=== PATIENT | male | born 1975 | race Hispanic/Latino ===

== ENCOUNTER 2022-07-15 23:28 | Inpatient (IN) | payer MEDICAID, SELFPAY ==
--- NOTE | ~2022-07-15 | XR_ITS ---
Portable chest x-ray Comparison: None Clinical History: Line placement Findings: Right IJ line is in satisfactory position. Focal hazy opacity noted at the right lung base . Questionable 6 mm nodular opacity left lung base. No pneumothorax. Cardiomediastinal silhouette is stable. Bones and soft tissues are unremarkable. Impression: Right IJ line in satisfactory position. No pneumothorax. Focal hazy opacity right lung base, nonspecific. Possible 6 mm left basilar pulmonary nodule. Consider CT to further evaluate. Reviewed, dictated and finalized at [facility]. ER ASSISTANT Impression: Right IJ line in satisfactory position. No pneumothorax. Focal hazy opacity right lung base, nonspecific. Possible 6 mm left basilar pulmonary nodule. Consider CT to further evaluate.
--- NOTE | ~2022-07-15 | CT_ITS ---
EXAMINATION: CT abdomen pelvis wo con DATE: 07/17/2022 08:58 INDICATION: Scrotal abscess. TECHNIQUE: Computed tomography (CT) of the abdomen and pelvis was performed without intravenous contr ast. Automated exposure control and iterative reconstruction technique were employed. The dose-length product was 233.21 mGy-cm. COMPARISON: CT abdomen and pelvis 07/16/2022 FINDINGS: The visualized portions of the lung bases demonstrate mild atelectasis. There are trace ple ural effusions. The heart size is normal. No pericardial effusion. There is a catheter tip in proxima l right atrium. The liver, gallbladder, spleen, pancreas, and adrenal glands are normal. There is mil d bilateral hydronephrosis. The bladder is decompressed by a Whitney catheter. There are foci of gas in the penis, consistent with recent intervention. In the ventral aspect of the proximal penis, there i s a 7.4 x 2.2 x 2.5 cm hyperdense mass measuring up to 154 HU. Scrotal edema is noted. There are no p athologically enlarged lymph nodes. There is no free intraperitoneal fluid. There is mild thoracolumb ar spondylosis. IMPRESSION: 1. 7.4 x 2.2 x 2.5 cm hyperdense mass in the ventral proximal penis, consistent with retained contras t within the abscess that previously measured 9.0 x 2.2 x 2.6 cm. Note that the abscess component pre viously seen in the prostate is not visualized without intravenous contrast and does not contain parviz ined contrast from the prior CT. 2. Mild bilateral hydronephrosis. Reviewed, dictated and finalized at location A. US AIDE IMPRESSION: 1. 7.4 x 2.2 x 2.5 cm hyperdense mass in the ventral proximal penis, consistent with retained contrast within the abscess that previously measured 9.0 x 2.2 x 2.6 cm. Note that the abscess component previously seen in the prostate is not visualized without intravenous contrast and does not contain retained contrast from the prior CT. 2. Mild bilateral hydronephrosis.
--- NOTE | ~2022-07-15 | US_ITS ---
EXAMINATION: US guide abscess drainage DATE: 07/16/2022 16:07 INDICATION: Penile and scrotal abscess. TECHNIQUE: The procedure including the risks, benefits, and alternatives was discussed with the patie nt using an hourly sign language interpreter. Risks discussed included bleeding and infection. The patient understood the risks and agreed to proceed. The skin overlying the base of the penis was prepped and draped in usual sterile fashion. Anesthetic was administered with 1% lidocaine subcutaneously. An 18-gauge spinal n eedle was inserted into the abscess under ultrasound guidance. The entry site was cleaned and dressed . There were no immediate complications. FINDINGS: Ultrasound images demonstrate the needle in abscess. IMPRESSION: 1. Ultrasound-guided aspiration of an abscess at the inferior base of the penis yielding 2 mL opaque, gómez fluid. Reviewed, dictated and finalized at location A. DRILLER
--- NOTE | ~2022-07-15 | CT_ITS ---
EXAMINATION: CT abdomen pelvis wo con DATE: 07/21/2022 14:19 INDICATION: elevated WBC, recent abscess TECHNIQUE: Computed tomography (CT) of the abdomen and pelvis was performed without intravenous contr ast. Automated exposure control and iterative reconstruction technique were employed. The dose-length product was 183.49 mGy-cm. COMPARISON: 07/17/2022. FINDINGS: Exam limited by lack of contrast and paucity of abdominal fat. Lower thorax: Right middle lobe and left basilar scar/atelectasis Liver: Normal. Biliary/Gallbladder: Gallbladder is normal. No bile duct dilation. Pancreas: No mass or duct dilation. Spleen: Normal. Adrenals:No mass. Kidneys: No mass or stone. Mild bilateral pelviectasis. GI tract: No small or large bowel dilation. Normal appendix. Mesentery/Peritoneum: No ascites, mass, or free air. Retroperitoneum: No mass. Pelvis: Marked bladder distention with wall thickening. A urinary catheter is in place. Soft Tissues: Increased size of the penile/periurethral abscess now measuring 7.7 cm AP x 3.7 cm so sverse by 2.4 cm craniocaudad. Increased periurethral and penile subcutaneous gas, increased penile, scrotal, and peroneal fat stranding. Bones: No acute osseous finding. IMPRESSION: Examination is limited due to the paucity of abdominal fat and lack of contrast. Within those constra ints: 1. Increased size of the penile/periurethral abscess with increasing penile and peroneal subcutaneous gas and inflammatory change. 2. Marked urinary bladder distention with wall thickening as can be seen with cystitis. Mild bilatera l hydronephrosis. Evaluate for urinary catheter dysfunction. Reviewed, dictated and finalized at location K. DEVELOPER IMPRESSION: Examination is limited due to the paucity of abdominal fat and lack of contrast . Within those constraints: 1. Increased size of the penile/periurethral abscess with increasing penile and peroneal subcutaneous gas and inflammatory change. 2. Marked urinary bladder distention with wall thickening as can be seen with c ystitis. Mild bilateral hydronephrosis. Evaluate for urinary catheter dysfuncti on.
--- NOTE | ~2022-07-15 | CT_ITS ---
CT Abdomen and Pelvis with contrast. History: Abdominal pain. Spiral CT of the abdomen and pelvis was performed after the administration of intravenous contrast. 1 00 cc of Omnipaque 350 was administered intravenously without complication. Dose reduction technique was used on this scan by utilizing automated exposure control and iterative reconstruction technique. The dose-length product (DLP) was 186.63 mGy-cm. Findings: Scans through the lung bases demonstrate focal right middle lobe atelectatic change. The liver, spleen, pancreas, gallbladder, and adrenal glands are within normal limits. There is mild bilateral hydronephrosis. No evidence of aortic aneurysm. No lymphadenopathy is seen. There is no evidence of bowel obstruction. There is mild diffuse mesenteric edema.. Images through the pelvis were performed. Urinary bladder markedly distended. There is a peripherally enhancing fluid collection possibly involving the inferior aspect of the prostate gland is just infe rior to the prostate gland in the midline, measuring approximately 2.7 x 2.4 x 2.4 cm in size (axial images 155-160). This collection appears to connect to the corpus spongiosum of the penis which appea rs enlarged/distended diffusely (axial image 172, sagittal image 73 for example). Impression: 2.7 x 2.4 x 2.4 cm abscess probably at the base of the prostate gland, which appears to communicate w ith the corpus spongiosum of the penis, which appears diffusely enlarged less distended. This is susp icious for abscess involvement of the penis/corpus spongiosum. Urologic consultation advised. Mild bilateral hydronephrosis with markedly distended urinary bladder. Correlate for urinary retentio n. Reviewed, dictated and finalized at location M. CAL MANAGER Impression: 2.7 x 2.4 x 2.4 cm abscess probably at the base of the prostate gland, which ap pears to communicate with the corpus spongiosum of the penis, which appears dif fusely enlarged less distended. This is suspicious for abscess involvement of t he penis/corpus spongiosum. Urologic consultation advised. Mild bilateral hydronephrosis with markedly distended urinary bladder. Correlat e for urinary retention.
--- NOTE | ~2022-07-15 | XR_ITS ---
EXAMINATION: XR urethrocystogram DATE: 07/25/2022 11:30 INDICATION: Penile abscess. TECHNIQUE: I inserted a 14 Czech catheter into the patient's urethra and injected water-soluble cont rast. Multiple fluoroscopic images were obtained. Fluoroscopy exposure time was 0.8 minutes. The tota l number of images was 7. COMPARISON: CT abdomen and pelvis 07/21/2022 FINDINGS: A suprapubic catheter is noted. There is extraluminal leakage of contrast from the urethra at the bulbar urethra. Contrast pools in the soft tissues around the membranous and bulbar urethra. IMPRESSION: 1. Extraluminal leakage of contrast from the bulbar urethra. Reviewed, dictated and finalized at location A. AR WORKER
--- NOTE | ~2022-07-15 | XR_ITS ---
EXAMINATION: XR cystogram DATE: 07/23/2022 19:35 FARM TRACTOR OPERATOR INDICATION: RETRO CYSTOGRAM . TECHNIQUE: 6 fluoroscopic images of the pelvis were obtained during retrograde cystogram performed by the surgeon. I was not present in the operating room. Fluoroscopy exposure time was 8 seconds. Air K brenden 1.0272 mGy. DAP 0.41821 mGym2. COMPARISON: CT abdomen and pelvis 07/21/2022. FINDINGS: Guidewire access to the urinary bladder via an indwelling catheter. A second catheter is present and multiple images presumably external to the patient. Typical cystographic images not provided. IMPRESSION: Fluoroscopic documentation of retrograde cystogram. Please refer to the operative note for complete p rocedural details . Reviewed, dictated and finalized at location K. TRACTOR OPERATOR IMPRESSION: Fluoroscopic documentation of retrograde cystogram. Please refer to the operati ve note for complete procedural details .
[2022-07-15 23:40] VITALS: BP 85/49; PULSE 121; RESP 18; TEMP 38.1; TEMP 39.6; O2SAT 100
--- NOTE | 2022-07-15 23:51 | ECG_ITS ---
Measurements Intervals [place] Rate: 113 P: 73 UT: 121 QRS: 78 QRSD: 75 T: -3 QT: 339 QTc: 465 Interpretive Statements SINUS TACHYCARDIA MINIMAL Q WAVES- INFERIOR LEADS NONSPECIFIC ST & T-WAVE ABNORMALITY- INFERIOR LEADS BASELINE WANDER- V5-V6 ABNORMAL ECG NO PREVIOUS ECG AVAILABLE FOR COMPARISON Electronically Signed On 07-16-2022 6:39:49 SKIN CARE INSTRUCTOR by Wilfred Laboy D.O.
[2022-07-15 23:56] LABS: Glucose Point of Care 407 mg/dl (65-105)
[2022-07-16] VITALS (34 sets, daily range): BP systolic 78–142; BP diastolic 50–97; PULSE 74–116; RESP 12–28; TEMP 36.6–37.3; O2SAT 98–100; BMI 13.6
[2022-07-16 00:12] LABS: Basophils Absolute Auto 0.1 K/mm3 (0.0-0.1); Basophils Percent Auto 0.3 % (0.2-1.2); Eosinophils Percent Auto 0.1 % (0-4.4); Hematocrit 24.8 % (42.0-52.0); Hemoglobin 8.4 g/dL (14.0-18.0); Immature Granulocyte Absolute 0.22 K/mm3 (0.00-0.031); Immature Granulocyte Percent A 1.2 % (0-0.5); Lymphocytes Absolute Auto 1.11 K/mm3 (0.9-3.2); Lymphocytes Percent Auto 6.1 % (18.3-44.2); Mean Corpuscular HGB Conc 33.9 g/dl (32-36); Mean Corpuscular Hemoglobin 29.1 pg (26-34); Mean Corpuscular Volume 85.8 fl (80-100); Mean Platelet Volume 8.9 fl (7.4-10.4); Monocytes Absolute Auto 0.3 K/mm3 (0.1-0.6); Monocytes Percent Auto 1.6 % (2.6-8.5); Neutrophils Absolute Auto 16.6 K/mm3 (1.3-6.7); Neutrophils Percent Auto 90.7 % (45.5-73.1); Platelet Count Result 638 k/mm3 (150-375); Red Blood Count 2.89 M/mm3 (4.6-6.20); Red Cell Distribution Width 13.2 % (11.5-14.5); White Blood Count 18.3 K/mm3 (4.5-10.0)
[2022-07-16 00:19] LABS: Alanine Aminotransferase 19 U/L (6-50); Albumin Level 3.7 g/dL (3.5-5.1); Alkaline Phosphatase 234 U/L (38-126); Anion Gap 14 mmol/L (8-16); Aspartate Amino Transferase 20 U/L (17-59); Bilirubin,Total 0.4 mg/dL (0.2-1.3); Blood Urea Nitrogen 51 mg/dL (9-20); Calcium 8.1 mg/dL (8.4-10.2); Carbon Dioxide 17 mmol/L (22-30); Chloride 92 mmol/L (98-107); Estimated Glomerular Filt Rate 55; Glucose 393 mg/dL (65-110); Lactic Acid Reflex 1.6 mmol/L (0.7-2.0); Lipase 174 U/L (23-300); Magnesium 1.2 mg/dL (1.6-2.3); Phosphorus 2.8 mg/dL (2.5-4.5); Potassium 3.6 mmol/L (3.4-5.0); Sodium 123 mmol/L (137-145)
[2022-07-16 00:34] LABS: Add Urine Microscopic? YES; Appearance Urine Clear (Clear); Bilirubin Urine Negative (Negative); Blood Urine Trace-Intact (Negative); Glucose Urine UA 3+ mg/dL (Negative); Ketones Urine Negative (Negative); Leukocyte Esterase Ur Trace LEU/UL (Negative); Nitrate Urine Negative (Negative); Protein Urine Trace mg/dL (Negative); Urobilinogen Urine 0.2 mg/dL (<2.0)
[2022-07-16] MEDS: SODIUM CHLORIDE 0.9% IV 1,000 ML 999 ML IV CONT ×3 (00:35→01:08)
--- NOTE | 2022-07-16 00:40 | ED.FEVER ---
HPI - Fever General Chief Complaint: Fever <CLAY Malik Last Filed: 07/16/22 04:39> Stated Complaint: abdominal pain <CLAY Malik Last Filed: 07/16/22 04:39> Time Seen by Provider: 07/15/22 23:52 <CLAY Malik Last Filed: 07/16/22 04:39> Source: patient and family <CLAY Malik Last Filed: 07/16/22 04:39> Mode of arrival: ambulatory <CLAY Malik Last Filed: 07/16/22 04:39> Limitations: language barrier <CLAY Malik Last Filed: 07/16/22 04:39> History of Present Illness HPI Narrative: Patient is a 47 y/o male who presents to the ED with report of fever, abdominal pain, dysuria. Patient is Swedish-speaking. 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 Family reports patient was recently brought here from [place]. He was diagnosed with DMII in June 2022 and started on metformin, glipizide, and insulin 4U at bedtime. He states his blood sugars have been elevated > 400 for the past 1 week. He reports having lower abdominal pain, dysuria, difficulty urinating for the past 1 week. He states it feels like hot sauce is coming out of his penis. He states he had blood and pus also coming from his penis 2 days ago. Denies concern for STD. He also reports having nausea, vomiting, headache, subjective fevers. Denies diarrhea, rectal bleeding, CP, SOB, cough or cold sx's. He has not taken anything for his symptoms. <CLAY Malik Last Filed: 07/16/22 04:39> Related Data Home Medications: Home Medications Medication Instructions Recorded Confirmed glipizide 5 mg tablet 5 mg PO DAILY 07/16/22 07/16/22 insulin glargine 100 unit/mL 4 unit subcut QAM 07/16/22 07/16/22 subcutaneous solution (Lantus U-100 Insulin) metformin 500 mg tablet 1,000 mg PO DAILY 07/16/22 07/16/22 <Juju Betancur PA-C - Last Filed: 07/16/22 04:39> Allergies/Adverse Reactions: Allergies Allergy/AdvReac Type Severity Reaction Status Date / Time No Known Allergies Allergy Verified 07/15/22 23:39 <CLAY Malik Last Filed: 07/16/22 04:39> Review of Systems Review of Systems: CONSTITUTIONAL: Reports fever. CARDIOVASCULAR: Denies chest pain, palpitations, or edema. RESPIRATORY: Denies cough or dyspnea. GASTROINTESTINAL: See HPI. GENITOURINARY: See HPI. <CLAY Malik Last Filed: 07/16/22 04:39> All systems reviewed & are unremarkable except as noted in HPI and below <CLAY Malik Last Filed: 07/16/22 04:39> [facility] Past Medical History Medical History: Medical History Anemia Diabetes mellitus <CLAY Malik Last Filed: 07/16/22 04:39> Surgical History Surgical History: Surgical History Hx of appendectomy <CLAY Malik Last Filed: 07/16/22 04:39> Social History Social History: Social History (Updated 07/16/22 @ 05:44 by Unique Schwartz DO) Smoking status: Never smoker Alcohol intake: never Substance use: never <CLAY Malik Last Filed: 07/16/22 04:39> Exam Narrative: GENERAL: Ill appearing, cachectic, toxic, in mild acute distress. HEAD: Normocephalic, atraumatic. NECK: Supple. No adenopathy, no masses. RESPIRATORY: Airway patent, respirations nonlabored but tachypneic. Clear to auscultation bilaterally, no rales, rhonchi, wheezing. CARDIOVASCULAR: Tachycardic with regular rhythm without murmurs, rubs, or gallops. Radial pulses 2+ and equal bilaterally. ABDOMINAL: Soft, tenderness throughout lower abdomen, worst over suprapubic region, nondistended, no hepatosplenomegaly. Normoactive BS. GENITAL: Uncircumcised male. Tenderness to palpation to base of penis. Some white discharge present in foreskin. No s
[2022-07-16 00:47] LABS: Beta-Hydroxybutyrate/Acetoacetate 0.29 mmol/L (0.02-0.27)
[2022-07-16] MEDS: MAGNESIUM SULF 2 GM/WATER 50ML 2 GM/50 ML BAG IVPB (00:47)
[2022-07-16 00:48] LABS: Bacteria Urine 3+ /hpf; Budding Yeast Urine Present /hpf; Mucus Urine Heavy /lpf; Squamous Epithelial Cell Urine Rare /hpf (Few); WBC Urine >75 /hpf
[2022-07-16 00:54] LABS: Base Excess ABG -8.6 mEq/l (+/-2.0); Carboxyhemoglobin 0.5 % THb (0-2.0); Fractional Inspired Oxygen 21 %; HCO3 ABG 16.1 mEq/l (22.0-26.0); Methemoglobin ABG 0.4 %THb (0-1.5); Oxygen Content ABG 9.9 %vol (16.0-22.0); Oxygen Saturation ABG 96.8 % (95.0-100.0); Oxyhemoglobin 94.3 % THb (90.0-100.0); PCO2 ABG 29.7 mmHg (35.0-45.0); PO2 ABG 91.2 mmHg (80.0-100.0); PO2 FiO2 Ratio Arterial Blood 4.34 %; Reduced Hemoglobin 4.8 %THb (0-5.0); pH ABG 7.351 (7.350-7.450)
[2022-07-16 00:55] LABS: Device ROOM AIR; Modified Allen's Test Unable to perform; Site Drawn LEFT BRACHIAL; Total Hemoglobin 7.3 g/dL (12.0-18.0)
[2022-07-16 00:56] LABS: Color Urine Light Yellow (Yellow)
[2022-07-16 01:18] LABS: Influenza A QL RT-PCR Negative (Negative); Influenza B QL RT-PCR Negative (Negative); SARS-CoV-2 RNA PCR Negative
[2022-07-16 02:40] LABS: Hemoglobin A1C > 14.0 % (<5.7)
[2022-07-16] MEDS: fentaNYL CITRATE INJ (*CRX) 100 MCG/2 ML VIAL 25 MCG IV PUSH (02:57)
[2022-07-16] MEDS: levoFLOXacin 500 MG/D5W 100 ML 500 MG/100 ML BAG 100 MG IVPB (03:57)
--- NOTE | 2022-07-16 04:05 | PM.IMHP ---
H&P: HPI History of Present Illness Date/Time: 07/16/22 04:05 Chief Complaint: Fevers, dysuria Narrative: Patient is a 47-year-old male with past medical history of type 2 diabetes who presents the ED with complaints of weakness, abdominal pain, dysuria. Patient is Welsh-speaking only and I used die cutter apprentice service to speak with patient. Patient's daughter also bedside. Patient recently was diagnosed with diabetes type 2 in June 2022 was started on metformin, glipizide, insulin 4 units Lantus at bedtime. He was seen in a hospital in [place] where he was living with his and at that time he was told he was anemic as well. He then went home and his was concerned and to continue to deteriorate at home. Patient's daughter who lives locally went to [place] to bring him here. In the ED: Patient's blood pressure is low map 61-68 despite 3 L of IV fluid boluses. Patient is anemic hemoglobin 8.4, on ABG was 7.3. He has been typed and screened. With patient's blood pressure being low, central line was placed for possible vasopressors. Sodium low 123, creatinine elevated 1.4, glucose elevated. Hemoglobin A1c greater than 14. Urinalysis consistent with infection. Flu negative, COVID negative. Review of Systems Review of Systems: Constitutional: No Fever, No Chills, No Night Sweats, No Fatigue, No Malaise ENT/Mouth: No Hearing Changes, No Ear Pain, No Nasal Congestion, No Sinus Pain, No Hoarseness, No sore throat, No Rhinorrhea, No Swallowing Difficulty Eyes: No Eye Pain, No Redness, No Vision Changes Cardiovascular: No Chest Pain, No Palpitations, No Dyspnea on Exertion, No Orthopnea, No Claudication, No Edema Respiratory: No Cough, No Sputum, No Wheezing, No Shortness of Breath Gastrointestinal: No Nausea, No Vomiting, No Diarrhea, No Constipation, No Abdominal Pain, No Heartburn, No Hematochezia, No Melena Genitourinary: Endorses dysuria Musculoskeletal: No Arthralgias, No Myalgias, No Joint Swelling, No Joint Stiffness, No Back Pain Skin: No Skin Lesions, No Pruritis, No Hair Changes Neuro: No Weakness, No Numbness, No Paresthesias, No Loss of Consciousness, No Syncope, No Dizziness, No Headache Psych: No Anxiety/Panic, No Depression, No Insomnia Heme: No Bruising, No Bleeding Lymph: No Adenopathy Endocrine: No Polyuria, No Polydipsia, No Temperature Intolerance PMFSH Past Medical History Medical History Anemia Diabetes mellitus Surgical History Surgical History Hx of appendectomy Social History Social History (Updated 07/16/22 @ 05:44 by Unique Schwartz DO) Smoking status: Never smoker Alcohol intake: never Substance use: never Meds Home Medications and Allergies Home Medications Medication Instructions Recorded Confirmed Type glipizide 5 mg tablet 5 mg PO DAILY 07/16/22 07/16/22 History insulin glargine 100 unit/mL 4 unit subcut QAM 07/16/22 07/16/22 History subcutaneous solution (Lantus U-100 Insulin) metformin 500 mg tablet 1,000 mg PO DAILY 07/16/22 07/16/22 History Allergies Allergy/AdvReac Type Severity Reaction Status Date / Time No Known Allergies Allergy Verified 07/15/22 23:39 Vital Signs Vital Signs - 24 hr 07/15/22 23:40 07/15/22 23:40 07/15/22 23:40 Temperature 38.1 C H 39.6 C H Pulse Rate 121 H Respiratory Rate 18 18 Blood Pressure 85/49 L Pulse Oximetry 100 100 Oxygen Delivery Room Air 07/16/22 00:00 07/16/22 00:13 07/16/22 00:20 Temperature Pulse Rate 111 H 116 H 110 H Respiratory Rate 19 22 H 18 Blood Pressure 86/58 L 100/71 97/72 L Pulse Oximetry 98 98 100 Oxygen Delivery 07/16/22 00:30 07/16/22 00:40 07/16/22 00:50 Temperature Pulse Rate 106 H 105 H 98 Respiratory Rate 19 17 17 Blood Pressure 95/76 L 96/69 L 92/67 L Pulse Oximetry 98 98 98 Oxygen Delivery
[2022-07-16 04:09] LABS: Glucose Point of Care 248 mg/dl (65-105)
--- NOTE | 2022-07-16 04:13 | PC.NURSE ---
pt. had 16 fr. michael catheter placed. pt. catheter draining urine well. pt. reports severe pain. erp ordered RN to removed catheter and replace with a smaller fr. 10 fr. michael catheter replaced. pt.had bloody return. RN attempted to irrigate catheter. unsuccessful. erp instructed Rn to removed catheter.
--- NOTE | 2022-07-16 06:56 | ADMGEN ---
This patient, Lindsey Cohen, was admitted to Intensive Care Unit-11. Patient/family oriented to hospital policies and general routines including ID bracelet, bed and alarms, visiting hours, pain management, procedures, bathroom and other care routines, personal items, smoking policy, room service/diet, and visiting hours. Information on how to activate the Rapid Response Team has been discussed. Patient/Family are encouraged to report perceived risks to care and to ask questions if they do not understand what they are told or what they should do.
[2022-07-16] MEDS: LACTATED RINGERS 1,000 ML 100 ML IV CONT ×2 (07:01→15:00)
[2022-07-16 07:38] LABS: Glucose Point of Care 200 mg/dl (65-105)
[2022-07-16 07:41] LABS: Immature Reticulocyte Fraction 19.3 % (3.0-15.9); Reticulocyte Hemoglobin Conten 34.3 pg (28.2-35.7); Reticulocyte Percent 1.08 % (0.7-4.3); Reticulocytes Absolute 0.03 B/L (32.2-175.7)
[2022-07-16 07:57] LABS: Transferrin 142 mg/dL (206-381)
[2022-07-16 08:05] LABS: CRP 13.1 mg/dL (<1.0); Lactate Dehydrogenase 92 U/L (120-246)
[2022-07-16 08:09] LABS: Erythrocyte Sedimentation Rate > 140 mm/hr (0-20)
[2022-07-16] MEDS: INSULIN GLARGINE (*BKC) 100 UNITS/ML 10 UNITS SUB-Q ×2 (08:42→16:10)
[2022-07-16] MEDS: NOREPINEPHRINE 8 MG/D5W 250 ML 8 MG/250 ML BAG 9.38 MG IV CONT (08:45)
[2022-07-16 08:52] LABS: Iron 13 ug/dL (49-181)
[2022-07-16 09:03] LABS: Percent Iron Saturation 7 % (20-50)
[2022-07-16 09:13] LABS: Folic Acid > 20.0 ng/mL (2.76->20)
[2022-07-16 10:10] LABS: IFOB Positive Control Positive; Immunochemical Fecal Occult Bl Negative (N)
[2022-07-16] MEDS: INSULIN ASPART (*BKC) 100 UNITS/ML SUB-Q ×3 (11:19→21:45)
[2022-07-16 12:31] LABS: Creatinine Urine 17.5 mg/dL
[2022-07-16 12:35] LABS: Glucose Point of Care 281 mg/dl (65-105)
[2022-07-16 12:38] LABS: Sodium Urine Random 56 meq/L
--- NOTE | 2022-07-16 13:10 | WPDURCON ---
Assessment and Plan Assessment and plan (1) Prostatic abscess: Code(s): N41.2 - Abscess of prostate Status: Acute Assessment and Plan: Plan to go to IR for drainage of Abscess in the prostatic area. Keep NPO. Likely causing difficulty urinating. Bladder scan and if retaining, replace michael and will need to keep it in until inflammation and abscess resolves. Continue IV antibiotics and tailor to culture results. We also discussed the importance of controlling diabetes, as this will continue to contribute to serious and chronic infections. (2) Retention, urine: Code(s): R33.9 - Retention of urine, unspecified Status: Acute Urology Consult Note HPI Date Seen: 07/16/22 Time Seen: 09:30 Requesting Physician: Medhat Schwartz DO Primary Care Provider: UNKNOWN,DOCTOR Consult Narrative Reason for consult: Urinary Retention secondary to Prostate Abscess Narrative: Lindsey Cohen is a 47 year old male who presented to the ER early this morning for severe dysuria, hematuria and purulence from his penis as well as severe pelvic/scrotal pain that started one week ago and worsened. He is a newly diagnosed DM II. His blood glucose has been >400 recently and he was reportedly brought here from [place] by his daughter recently. He doesn't speak Telugu, but his sister is at the bedside today and is able to translate for him. All of his medical history was obtained from his sister and his chart. His WBC is 18.3, creatinine 1.40, UA is suspicious of a UTI, urine and blood culutres are pending. He was hypotensive and was on pressors. His CT scan initially showed a 2.7 x 2.4 x 2.4 cm abscess probably at the base of the prostate gland, which appears to communicate with the corpus spongiosum of the penis, which appears diffusely enlarged less distended. This is suspicious for abscess involvement of the penis/corpus spongiosum. Urologic consultation advised. Mild bilateral hydronephrosis with markedly distended urinary bladder. A catheter was placed and 1 liter of urine was drained, but d/t the pain the patient had in the area, the catheter was removed. However, he urinated 200cc this morning per ICU nurse at the bedside. His sister states he has never had difficulty urinating or infections like this before. He had one dose of Ceftriaxone in the ER and was then placed on Levaquin. Review of Systems Cardiovascular: Cardiovascular: Denies chest pain Respiratory: Respiratory: Reports no additional respiratory complaints Gastrointestinal: Gastrointestinal: Reports abdominal pain, Denies nausea and Denies vomiting Genitourinary: Genitourinary: Reports hematuria, Reports dysuria, Denies flank pain, Reports urinary frequency, Reports urinary hesitancy, Denies urinary incontinence and Reports urinary urgency PMFSH Past Medical History Medical History Anemia Diabetes mellitus Surgical History Surgical History Hx of appendectomy Social History Social History Smoking status: Never smoker Alcohol intake: former Substance use: never Lack of Transportation: No Lack of Food: Sometimes True Current Housing: I Have Housing Concerned About Future Housing: No Difficulty Paying Gas/Electric Bills: YES Difficulty Paying for Meds: YES Currently Unemployed: No Education: Never Attended/Kindergarten Only Difficulty w/ Childcare or Family Care: No Spiritual care concerns: No Meds Home Medications and Allergies Home Medications Medication Instructions Recorded Confirmed Type glipizide 5 mg tablet 5 mg PO DAILY 07/16/22 07/16/22 History insulin glargine 100 unit/mL 4 unit subcut QAM 07/16/22 07/16/22 History subcutaneous solution (Lantus U-100 Insulin) metformin 500 mg tablet 1,000 mg PO DAILY 07/16/22
[2022-07-16 13:12] LABS: Toxigenic C. Diff NEGATIVE (NEGATIVE)
--- NOTE | 2022-07-16 14:32 | WPDCNINT ---
Assessment and Plan Assessment and plan (1) Severe sepsis: Code(s): A41.9 - Sepsis, unspecified organism; R65.20 - Severe sepsis without septic shock Status: Acute Assessment and Plan: Patient presented with lactic acidosis, hypotension, blood and pus in his urethra -likely source abscess of the prostate which was seen on CT scan the abdomen and pelvis done on 07/16/2022 -elevated lactic acid with repeat lactic acid was normal after receiving 3000 mL IV fluid bolus in the ER -continue maintenance IV fluids -blood and urine cultures have been obtained and pending -continue levofloxacin per Urology -central line was inserted in the ER -patient started on Levophed, will maintain SBP > 100 mmHg (2) Prostatic abscess: Code(s): N41.2 - Abscess of prostate Status: Acute Assessment and Plan: 07/16/2022 CT scan of the abdomen and pelvis: 2.7 x 2.4 x 2.4 cm abscess probably at the base of the prostate gland, Mild bilateral hydronephrosis with markedly distended urinary bladder -appreciate urology evaluation and recommendations -IR to each drain the abscess -continue levofloxacin (3) Acute renal insufficiency: Code(s): N28.9 - Disorder of kidney and ureter, unspecified Status: Acute Assessment and Plan: Acute renal failure likely related to urinary retention secondary to abscess of the prostate, diabetes - (4) Diabetes mellitus: Code(s): E11.9 - Type 2 diabetes mellitus without complications Status: Acute Assessment and Plan: Patient also presented with acute hyperglycemia likely related to abscess of the prostate -continue Accu-Cheks, sliding scale insulin and Lantus -hemoglobin A1c > 14.0 (5) Anemia: Qualifiers: Anemia type: unspecified type Qualified Code(s): D64.9 - Anemia, unspecified Code(s): D64.9 - Anemia, unspecified Status: Acute Assessment and Plan: Patient has a history of anemia -iron panel reflects iron deficiency anemia -patient may require IV Venofer and/or p.o. iron supplements (6) Hyponatremia: Code(s): E87.1 - Hypo-osmolality and hyponatremia Status: Acute Assessment and Plan: Likely secondary to hypovolemia, hyperglycemia -Continue lactated Ringer's -will check BMP this evening Plan DVT prophylaxis: SCDs, enoxaparin was on hold due abscess drainage of the prostate Stress ulcer prophylaxis: Not indicated Nutrition: Diabetic diet Code Status: Full code Critical Care Time Spent: 47 minutes Due to a high probability of clinically significant, life threatening deterioration, the patient required my highest level of preparedness to intervene emergently and I personally spent this critical care time directly and personally managing the patient. This critical care time included obtaining a history; examining the patient; pulse oximetry; ordering and review of studies; arranging urgent treatment with development of a management plan; evaluation of patient's response to treatment; frequent reassessment; and discussions with other providers. It was exclusive of separately billable procedures and treating other patients and teaching time. Please see Assessment and Plan section and the rest of the note for further information on patient assessment and treatment This dictation may have been done utilizing a voice recognition system. Attempts have been made to correct errors. However, there may be uncorrected grammatical, spelling, and recognitions errors present. 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 Patient has lost a lot of weight has been failure to thrive after being diagnosed with diabetes type 2 in June 2022 and was
[2022-07-16] MEDS: HYDROcodone/acetaminophen (*CRX) 5-325 MG TABLET 1 TAB PO ×2 (15:35→21:07)
[2022-07-16 16:15] LABS: Glucose Point of Care 258 mg/dl (65-105)
[2022-07-16 16:43] LABS: Anion Gap 7 mmol/L (8-16); Blood Urea Nitrogen 27 mg/dL (9-20); Calcium 7.7 mg/dL (8.4-10.2); Carbon Dioxide 20 mmol/L (22-30); Chloride 103 mmol/L (98-107); Estimated CRCL calculation 48 ml/min; Estimated Glomerular Filt Rate > 60; Glucose 262 mg/dL (65-110); Potassium 2.8 mmol/L (3.4-5.0); Sodium 130 mmol/L (137-145)
[2022-07-16] MEDS: POTASSIUM CHLORIDE 20 MEQ TABLET 40 MEQ PO (17:02)
[2022-07-16] MEDS: KCL 40 MEQ/WATER 100 ML 100 ML 25 ML IVPB (17:29)
[2022-07-16 21:17] LABS: Glucose Point of Care 304 mg/dl (65-105)
[2022-07-17] VITALS (23 sets, daily range): BP systolic 77–122; BP diastolic 52–88; PULSE 77–96; RESP 10–18; TEMP 36–37.1; O2SAT 97–100
[2022-07-17] MEDS: LACTATED RINGERS 1,000 ML 100 ML IV CONT (02:24)
[2022-07-17] MEDS: ACETAMINOPHEN 325 MG TABLET 650 MG PO (05:29)
[2022-07-17] MEDS: levoFLOXacin 250 MG/D5W 50 ML 250 MG/50 ML BAG 100 MG IVPB (05:30)
[2022-07-17 05:31] LABS: Basophils Percent Auto 0.1 % (0.2-1.2); Eosinophils Percent Auto 0.3 % (0-4.4); Hematocrit 21.5 % (42.0-52.0); Hemoglobin 7.3 g/dL (14.0-18.0); Immature Granulocyte Absolute 0.16 K/mm3 (0.00-0.031); Lymphocytes Absolute Auto 1.49 K/mm3 (0.9-3.2); Lymphocytes Percent Auto 9.4 % (18.3-44.2); Mean Corpuscular Hemoglobin 28.5 pg (26-34); Mean Platelet Volume 8.4 fl (7.4-10.4); Monocytes Absolute Auto 0.8 K/mm3 (0.1-0.6); Monocytes Percent Auto 4.9 % (2.6-8.5); Neutrophils Absolute Auto 13.4 K/mm3 (1.3-6.7); Neutrophils Percent Auto 84.3 % (45.5-73.1); Platelet Count Result 606 k/mm3 (150-375); Red Blood Count 2.56 M/mm3 (4.6-6.20); Red Cell Distribution Width 13.4 % (11.5-14.5); White Blood Count 15.9 K/mm3 (4.5-10.0)
[2022-07-17 05:35] LABS: INR 1.2
[2022-07-17 05:36] LABS: Partial Thromboplastin Time 45.5 SECONDS (22.3-36.8)
[2022-07-17 05:39] LABS: Lactic Acid Reflex 0.6 mmol/L (0.7-2.0)
[2022-07-17 05:41] LABS: Alanine Aminotransferase 14 U/L (6-50); Alkaline Phosphatase 157 U/L (38-126); Anion Gap 6 mmol/L (8-16); Aspartate Amino Transferase 16 U/L (17-59); Bilirubin,Total 0.2 mg/dL (0.2-1.3); Blood Urea Nitrogen 17 mg/dL (9-20); Calcium 7.7 mg/dL (8.4-10.2); Carbon Dioxide 21 mmol/L (22-30); Chloride 106 mmol/L (98-107); Estimated CRCL calculation 70 ml/min; Estimated Glomerular Filt Rate > 60; Glucose 75 mg/dL (65-110); Magnesium 1.1 mg/dL (1.6-2.3); Phosphorus 2.4 mg/dL (2.5-4.5); Potassium 3.5 mmol/L (3.4-5.0); Sodium 133 mmol/L (137-145)
[2022-07-17 07:19] LABS: Glucose Point of Care 74 mg/dl (65-105)
[2022-07-17] MEDS: MAGNESIUM SULF 4 GM/WATER100ML 4 GM/100 ML BAG IVPB (09:29)
[2022-07-17] MEDS: KCL 20 MEQ/LR 1,000 ML 75 ML IV CONT (09:29)
[2022-07-17] MEDS: POTASSIUM PHOS,M-BASIC-D-BASIC 15 MMOL in SODIUM CHLORIDE 0.9% IV 250 ML 63.75 MMOL IVPB (09:29)
[2022-07-17 09:41] LABS: Glucose Point of Care 87 mg/dl (65-105)
[2022-07-17] MEDS: SODIUM CHLORIDE 0.9% IV 1,000 ML 999 ML IV CONT (10:14)
--- NOTE | 2022-07-17 10:43 | PCFNICU ---
ICU Rounding Note: Pt current nutrition is DBCC Last recorded weight is 39.2 kg. Bowel Motility:+BM reported 07/17 Labs Reviewed:Mg 1.1,PO4 2.4,Cr 0.6, Alb 3.0, Hct 21.5,Hgb 7.3 Meds Noted:Levaquin, NS, Lantus, NovoLog Skin: WNL Additional Notes: Patient remains on a DBCC. Oral Intake 75-100% of meals. Drinking diet supplements of Glucerna shakes BID for additional 240 kcals and 10 gms protein. Banatrol Plus BID for stool bulking due to loose stools. Stool cultures pending. Patient had US guided abscess drainage removing 2 ml fluid. Agree with diet orders. Following daily in ICU rounds. Will monitor every 5 days.
[2022-07-17 11:40] LABS: Glucose Point of Care 79 mg/dl (65-105)
--- NOTE | 2022-07-17 12:31 | WPDINTPN ---
Progress Note: A&P Assessment and Plan (1) Severe sepsis: Code(s): A41.9 - Sepsis, unspecified organism; R65.20 - Severe sepsis without septic shock Status: Acute Assessment and Plan: Secondary to prostate abscess 07/16 status post Ultrasound-guided aspiration of an abscess at the inferior base of the penis yielding 2 mL opaque, gómez fluid. Repeat CT 07/17 IMPRESSION: 1. 7.4 x 2.2 x 2.5 cm hyperdense mass in the ventral proximal penis, consistent with retained contrast within the abscess that previously measured 9.0 x 2.2 x 2.6 cm. Note that the abscess component previously seen in the prostate is not visualized without intravenous contrast and does not contain retained contrast from the prior CT. 2. Mild bilateral hydronephrosis. Discussed with Urology. The plan to take patient to operating room today for drainage Continue IV fluids. He was given another 1 L bolus this morning His lactic acid level has normalized Currently off of Levophed but blood pressure is soft and may need to restart -likely source abscess of the prostate which was seen on CT scan the abdomen and pelvis done on 07/16/2022 -elevated lactic acid with repeat lactic acid was normal after receiving 3000 mL IV fluid bolus in the ER -continue maintenance IV fluids -blood and urine cultures have been obtained and pending -continue levofloxacin per Urology. Dose adjusted at renal function has improved -central line was inserted in the ER (2) Prostatic abscess: Code(s): N41.2 - Abscess of prostate Status: Acute Assessment and Plan: See above (3) Acute renal insufficiency: Code(s): N28.9 - Disorder of kidney and ureter, unspecified Status: Acute Assessment and Plan: Acute renal failure likely related to urinary retention secondary to abscess of the prostate, diabetes Creatinine improved and normalized (4) Diabetes mellitus: Code(s): E11.9 - Type 2 diabetes mellitus without complications Status: Acute Assessment and Plan: Patient also presented with acute hyperglycemia likely related to abscess of the prostate -continue Accu-Cheks, sliding scale insulin Lantus on hold as patient is probably going to OR and is NPO -hemoglobin A1c > 14.0 (5) Anemia: Qualifiers: Anemia type: unspecified type Qualified Code(s): D64.9 - Anemia, unspecified Code(s): D64.9 - Anemia, unspecified Status: Acute Assessment and Plan: Patient has a history of anemia Transfuse if hemoglobin is less than 7 (6) Hyponatremia: Code(s): E87.1 - Hypo-osmolality and hyponatremia Status: Acute Assessment and Plan: Likely secondary to hypovolemia, hyperglycemia -Continue lactated Ringer's -improving (7) Electrolyte abnormality: Code(s): E87.8 - Other disorders of electrolyte and fluid balance, not elsewhere classified Status: Acute Assessment and Plan: Replacement ordered for low potassium magnesium and phosphorous Plan DVT prophylaxis: SCDs, enoxaparin was on hold due abscess drainage of the prostate Stress ulcer prophylaxis: Not indicated Nutrition: Diabetic diet Case discussed with Urology Code Status: Full code Critical Care Time Spent: 30 minutes Due to a high probability of clinically significant, life threatening deterioration, the patient required my highest level of preparedness to intervene emergently and I personally spent this critical care time directly and personally managing the patient. This critical care time included obtaining a history; examining the patient; pulse oximetry; ordering and review of studies; arranging urgent treatment with development of a management plan; evaluation of patient's response to treatment; frequent reassessment; and discussions with other providers. It was exclusive of separately billable procedures and treating other patients and teaching time. Please see Assessment and Plan section and the rest of the note
--- NOTE | 2022-07-17 13:14 | WPDUROPN2 ---
Progress Note: A&P Assessment and Plan (1) Scrotal abscess: Code(s): N49.2 - Inflammatory disorders of scrotum Status: Acute Assessment and Plan: have discussed findings with patient and family. Very unusual appearance. Have recommended proceeding with cystoscopy as well as I and D of this possible abscess cavity. They understand and wish to proceed. Subjective Subjective Date/Time Seen: 07/17/22 13:14 Principal diagnosis: Penoscrotal abscess with poorly controlled diabetes and urinary retention Interval history: patient had a repeat CT scan this morning which reveals contrast in this cavity adjacent to the proximal urethra near the penoscrotal junction. On physical exam this area is very tense and tender. Have discussed this with patient through his sister who is an floor worker well service. Review of Systems Review of Systems: All systems reviewed & are unremarkable except as noted in HPI and below Exam Const: General: cooperative : Male General Exam: Yes tenderness ( Over the penoscrotal area where it is tense and consistent with findings ) Objective Data Vital Signs Vital Signs: Vital Signs - 24 hr 07/16/22 14:00 07/16/22 14:00 07/16/22 16:00 Temperature Pulse Rate 91 91 94 Respiratory Rate 24 H Blood Pressure 132/97 H Pulse Oximetry 98 Oxygen Delivery 07/16/22 16:00 07/16/22 18:00 07/16/22 18:00 Temperature 37.3 C Pulse Rate 89 91 92 Respiratory Rate 13 15 Blood Pressure 103/77 94/78 L Pulse Oximetry 100 100 Oxygen Delivery 07/16/22 20:00 07/16/22 20:00 07/16/22 20:00 Temperature 36.6 C Pulse Rate 93 92 Respiratory Rate 13 Blood Pressure 99/78 L Pulse Oximetry 100 Oxygen Delivery Room Air 07/16/22 22:00 07/16/22 22:00 07/17/22 02:00 Temperature Pulse Rate 85 87 86 Respiratory Rate 16 Blood Pressure 112/87 Pulse Oximetry 100 Oxygen Delivery 07/17/22 02:00 07/17/22 00:00 07/17/22 00:00 Temperature 36.0 C L Pulse Rate 86 80 Respiratory Rate 10 L Blood Pressure 106/76 Pulse Oximetry 100 100 Oxygen Delivery Room Air 07/17/22 04:00 07/17/22 04:00 07/17/22 04:00 Temperature 36.4 C L Pulse Rate 85 85 Respiratory Rate 12 Blood Pressure 94/68 L Pulse Oximetry 100 100 Oxygen Delivery Room Air 07/17/22 06:00 07/17/22 06:00 07/17/22 08:00 Temperature 36.8 C 37.1 C Pulse Rate 86 86 96 Respiratory Rate 12 16 Blood Pressure 87/64 L 99/71 L Pulse Oximetry 100 100 Oxygen Delivery 07/17/22 08:00 07/17/22 10:00 07/17/22 10:00 Temperature Pulse Rate 91 78 77 Respiratory Rate 18 Blood Pressure 77/59 L Pulse Oximetry 100 Oxygen Delivery 07/17/22 08:00 07/17/22 11:49 07/17/22 12:00 Temperature 37.1 C Pulse Rate 83 Respiratory Rate 16 Blood Pressure 79/52 L Pulse Oximetry 99 Oxygen Delivery Room Air Room Air 07/17/22 12:00 Temperature Pulse Rate 81 Respiratory Rate Blood Pressure Pulse Oximetry Oxygen Delivery Intake/Output Intake/Output: Intake & Output 07/14/22 07/15/22 07/16/22 07/17/22 23:59 23:59 23:59 23:59 Intake Total 8800 1770 Output Total 2053 1500 Balance 6747 270 Meds/Results Medications: Active Medications Generic Name Dose Route Start Last Admin Trade Name Freq PRN Reason Stop Dose Admin Acetaminophen 650 mg 07/16/22 04:02 07/17/22 05:29 Acetaminophen 325 Mg Tablet PO 650 mg Q4H PRN Administration Mild Pain (1-3) or Fever Hydrocodone Bitart/Acetaminophen 1 tab 07/16/22 04:02 07/16/22 21:07 Hydrocodone/Acetaminophen (*Crx) 5-325 Mg Tablet PO 1 tab Q4H PRN Administration Moderate Pain (4-6) Al Hydrox/Mg Hydrox/Simethicone 30 ml 07/16/22 04:02 Mag Hydrox/Al Hydrox/Simeth 30 Ml Udc PO QID PRN Dyspepsia Bisacodyl 5 mg 07/16/22 04:02 Bisacodyl 5 Mg Tablet Ec PO DAILY PRN Constipation Dextrose 12.5 gm 07/16/22 03:47 Dextrose 50% 25 G
--- NOTE | 2022-07-17 13:19 | WPDHPUPDATE1 ---
History and Physical Update Update Date/Time: 07/17/22 13:19 History and Physical has been reviewed, including an updated exam of the patient. There are NO changes in the patient's condition. Risks, benefits, and alternatives have been discussed and questions answered. Patient agrees to proceed with procedure. Proceed with cystoscopy, incision and drainage of scrotal abscess
[2022-07-17] MEDS: CENTRAL LINE FLUSH 10 ML IV PUSH ×3 (14:03→22:30)
--- NOTE | 2022-07-17 14:41 | WPDANESEPPF ---
Anes - Initial Pre Proc Eval Procedure: Operation Date: 07/17/22 15:30 Proposed Procedures p Incision And Drainage [place]-Scrotal Abscess - Yaya Vela MD s Cystoscopy - Yaya Vela MD Date/Time: 07/17/22 14:41 Surgeon: Medhat Schwartz DO Pre Op Diagnosis: sepsis, prostatic abscess, DM, anemia Patient Data Age: 47 Gender: M Height: 1.65 m Weight: 39.2 kg Last Vital Signs Temp 37.1 C 07/17/22 12:00 Pulse 85 07/17/22 14:00 Resp 16 07/17/22 14:00 BP 95/73 L 07/17/22 14:00 Pulse Ox 100 07/17/22 14:00 O2 Del Method Room Air 07/17/22 11:49 Allergies Allergy/AdvReac Type Severity Reaction Status Date / Time No Known Allergies Allergy Verified 07/15/22 23:39 Home Medications Medication Instructions Recorded Confirmed Type glipizide 5 mg tablet 5 mg PO DAILY 07/16/22 07/16/22 History insulin glargine 100 unit/mL 4 unit subcut QAM 07/16/22 07/16/22 History subcutaneous solution (Lantus U-100 Insulin) metformin 500 mg tablet 1,000 mg PO DAILY 07/16/22 07/16/22 History Laboratory Tests 07/16/22 07/16/22 07/16/22 16:09 16:15 21:12 WBC RBC Hgb Hct MCV MCH MCHC RDW Plt Count MPV Immature Gran % (Auto) Neut % (Auto) Lymph % (Auto) Sebastian % (Auto) Eos % (Auto) Baso % (Auto) Lymph # (Auto) Sebastian # (Auto) Eos # (Auto) Baso # (Auto) Abs Immat Gran (auto) Absolute Neuts (auto) Absolute Nucleated RBC Nucleated RBC % PT INR APTT Sodium 130 mmol/L L mmol/L (137-145) Potassium 2.8 mmol/L L* mmol/L (3.4-5.0) Chloride 103 mmol/L mmol/L (98-107) Carbon Dioxide 20 mmol/L L mmol/L (22-30) Anion Gap 7 mmol/L L mmol/L (8-16) BUN 27 mg/dL H D mg/dL (9-20) Creatinine 0.90 mg/dL mg/dL (0.7-1.3) Estim Creat Clear Calc 48 ml/min ml/min Estimated GFR > 60 (59 - ) Glucose 262 mg/dL H mg/dL (65-110) POC Capillary Glucose 258 mg/dl H mg/dl 304 mg/dl H mg/dl (65-105) (65-105) Lactic Acid Calcium 7.7 mg/dL L mg/dL (8.4-10.2) Phosphorus Magnesium Total Bilirubin AST ALT Alkaline Phosphatase Total Protein Albumin 07/17/22 07/17/22 07/17/22 05:16 05:16 05:16 WBC 15.9 K/mm3 H K/mm3 (4.5-10.0) RBC 2.56 M/mm3 L M/mm3 (4.6-6.20) Hgb 7.3 g/dL L g/dL (14.0-18.0) Hct 21.5 % L % (42.0-52.0) MCV 84.0 fl fl (80-100) MCH 28.5 pg pg (26-34) MCHC 34.0 g/dl g/dl (32-36) RDW 13.4 % % (11.5-14.5) Plt Count 606 k/mm3 H k/mm3 (150-375) MPV 8.4 fl fl (7.4-10.4) Immature Gran % (Auto) 1.0 % H % (0-0.5) Neut % (Auto) 84.3 % H % (45.5-73.1) Lymph % (Auto) 9.4 % L % (18.3-44.2) Sebastian % (Auto) 4.9 % % (2.6-8.5) Eos % (Auto) 0.3 % % (0-4.4) Baso % (Auto) 0.1 % L % (0.2-1.2) Lymph # (Auto) 1.49 K/mm3 K/mm3 (0.9-3.2) Sebastian # (Auto) 0.8 K/mm3 H K/mm3 (0.1-0.6) Eos # (Auto) 0.0 K/mm3 K/mm3 (0-0.3) Baso # (Auto) 0.0 K/mm3 K/mm3 (0.0-0.1) Abs Immat Gran (auto) 0.16 K/mm3 H K/mm3 (0.00-0.031) Absolute Neuts (auto) 13.4 K/mm3 H K/mm3 (1.3-6.7) Absolute Nucleated RBC 0.0 K/mm3 K/mm3 (0.0-0.012) Nucleated RBC % 0.0 % % (0.0-0.2) PT 15.0 Seconds H Seconds (11.1-14.7) INR 1.2 APTT 45.5 SECONDS H SECONDS (22.3-36.8)
[2022-07-17 14:47] LABS: Glucose Point of Care 91 mg/dl (65-105)
[2022-07-17] MEDS: LACTATED RINGERS 1,000 ML 30 ML IV CONT (15:00)
--- NOTE | 2022-07-17 15:12 | SUR.PREOP ---
1500- PT STATED HE ATE AT 0800, TOLD ANESTHESIA HE HAS A BURGER AND FRIKATHIA. DR. WEINER AWARE.
--- NOTE | 2022-07-17 16:14 | SUR.OPER ---
urine from michael removed prior to start of procedure:250cc
--- NOTE | 2022-07-17 16:22 | W.PM.PROC2 ---
Procedure Note - Detailed Date of Procedure 07/17/22 Pre-op Diagnosis sepsis, prostatic abscess, DM, anemia Post-op Diagnosis Other (Right.. Dariana Urethral cavity with purulence) Procedure Performed Cystoscopy, aspiration fluid from dariana urethral cavity. Biopsy of periurethral tissue, complex Whitney catheter placement 18 [place] tip Surgeon Yaya Vela MD Anesthesia General Description of Procedure Patient is taken to the operative suite correctly identified. Once anesthesia obtained he was placed in dorsal lithotomy position and prepped and draped usual sterile fashion. With removal of his prior Whitney catheter immediate purulence came from his urethra. We went ahead and culture this and sent this for analysis. Sixteen [place] flexible scope was inserted into the urethra. As we approached the bulbar urethra we noted a cavity along side the right side of his urethra. There was purulence noted at the opening. We were able to place the scope into this and aspirate the fluid sent for culture. We then irrigated this cavity out and irrigated it with gentamicin antibiotics. There was some irregular-appearing tissue which I biopsied and sent for pathologic review. There appeared to be a small opening along the posterior aspect of the cavity but I could not pass any wires into this. At this point the scope was removed from the cavity. I entered into the bladder. The bladder was so cloudy that I was unable to adequately inspect the entire mucosa. We placed a [place] wire into this bladder in then passed a 16 [place] tip over the wire into the bladder. We inflated the balloon with 10 cc of sterile water. Scope was removed. Patient is taken recovery stable condition. I will review this with our reconstructive urologist. I decided not to make any incisions in the perineum or dariana scrotal area as the presumed finding on CT was this cavity. I did not want to make communication with the urethra at this time to the skin. The Whitney catheter should suffice for drainage of the bladder and any material coming from the periurethral cavity. Urine Output 50 Drains Yes Packing No Pathology Yes Complications No immediate complications Condition Stable Disposition PACU
--- NOTE | 2022-07-17 16:22 | SUR.OPER ---
80mg Gentamycin mixed in 1000ml ns
[2022-07-17] MEDS: HYDROcodone/acetaminophen (*CRX) 5-325 MG TABLET 1 TAB PO (17:47)
[2022-07-17] MEDS: levoFLOXacin 500 MG/D5W 100 ML 500 MG/100 ML BAG 100 MG IVPB (17:47)
[2022-07-17 17:51] LABS: Glucose Point of Care 113 mg/dl (65-105)
[2022-07-17 20:20] LABS: Glucose Point of Care 145 mg/dl (65-105)
[2022-07-17] MEDS: MIDODRINE HCL 10 MG TABLET PO (22:30)
[2022-07-18] VITALS (16 sets, daily range): BP systolic 85–142; BP diastolic 66–101; PULSE 74–90; RESP 11–22; TEMP 36.4–37; O2SAT 96–100
[2022-07-18 02:29] LABS: Glucose Point of Care 295 mg/dl (65-105)
[2022-07-18] MEDS: HYDROcodone/acetaminophen (*CRX) 5-325 MG TABLET 1 TAB PO ×4 (02:32→20:53)
[2022-07-18] MEDS: KCL 20 MEQ/LR 1,000 ML 75 ML IV CONT (05:05)
[2022-07-18 05:51] LABS: Hemoglobin 7.8 g/dL (14.0-18.0); Mean Corpuscular HGB Conc 33.9 g/dl (32-36); Mean Corpuscular Hemoglobin 29.5 pg (26-34); Mean Corpuscular Volume 87.1 fl (80-100); Mean Platelet Volume 8.4 fl (7.4-10.4); Platelet Count Result 660 k/mm3 (150-375); Red Blood Count 2.64 M/mm3 (4.6-6.20); Red Cell Distribution Width 13.9 % (11.5-14.5); White Blood Count 13.2 K/mm3 (4.5-10.0)
[2022-07-18 06:03] LABS: Alanine Aminotransferase 13 U/L (6-50); Albumin Level 2.6 g/dL (3.5-5.1); Alkaline Phosphatase 251 U/L (38-126); Anion Gap 2 mmol/L (8-16); Aspartate Amino Transferase 13 U/L (17-59); Bilirubin,Total 0.2 mg/dL (0.2-1.3); Blood Urea Nitrogen 9 mg/dL (9-20); Calcium 7.4 mg/dL (8.4-10.2); Carbon Dioxide 26 mmol/L (22-30); Chloride 100 mmol/L (98-107); Estimated CRCL calculation 66 ml/min; Estimated Glomerular Filt Rate > 60; Glucose 272 mg/dL (65-110); Magnesium 1.3 mg/dL (1.6-2.3); Phosphorus 3.4 mg/dL (2.5-4.5); Potassium 4.2 mmol/L (3.4-5.0); Sodium 128 mmol/L (137-145)
[2022-07-18] MEDS: CENTRAL LINE FLUSH 10 ML IV PUSH ×4 (06:39→20:53)
[2022-07-18 07:19] LABS: Glucose Point of Care 122 mg/dl (65-105)
[2022-07-18 07:23] LABS: Glucose Point of Care 220 mg/dl (65-105)
[2022-07-18] MEDS: INSULIN GLARGINE (*BKC) 100 UNITS/ML 15 UNITS SUB-Q (09:48)
[2022-07-18] MEDS: INSULIN ASPART (*BKC) 100 UNITS/ML SUB-Q ×3 (09:48→17:00)
[2022-07-18] MEDS: MAGNESIUM SULF 4 GM/WATER100ML 4 GM/100 ML BAG IVPB (09:48)
[2022-07-18] MEDS: CALCIUM GLUC 2,000 MG/NS 100ML 2,000 MG/100 ML BAG 100 MG IVPB (09:49)
[2022-07-18] MEDS: MIDODRINE HCL 10 MG TABLET PO ×3 (09:49→17:01)
--- NOTE | 2022-07-18 09:51 | WPDANESPN ---
Anes - Prog Note Post-Op Date/Time: 07/18/22 09:51 Cardiovascular status: normal Respiratory status: normal Airway patency: baseline Mental status: baseline Post-Op hydration status: normal Vital Signs: Last Vital Signs Temp 36.8 C 07/18/22 08:00 Pulse 89 07/18/22 08:00 Resp 18 07/18/22 08:00 BP 88/66 L 07/18/22 08:00 Pulse Ox 96 07/18/22 08:00 O2 Del Method Room Air 07/18/22 04:00 O2 Flow Rate 8 07/17/22 16:45 Pain Score (VAS): 09/20 I/O: Intake & Output 07/17/22 07/18/22 07/18/22 23:59 07:59 15:59 Intake Total 1550 480 240 Output Total 250 1750 Balance 1300 -1270 240 Laboratory Tests 07/18/22 05:41 07/18/22 05:41 07/17/22 07/17/22 07/17/22 11:34 14:45 16:40 WBC RBC Hgb Hct MCV MCH MCHC RDW Plt Count MPV Sodium Potassium Chloride Carbon Dioxide Anion Gap BUN Creatinine Estim Creat Clear Calc Estimated GFR Glucose POC Capillary Glucose 79 91 122 H Calcium Phosphorus Magnesium Total Bilirubin AST ALT Alkaline Phosphatase Total Protein Albumin 07/17/22 07/17/22 07/18/22 17:34 20:17 02:17 WBC RBC Hgb Hct MCV MCH MCHC RDW Plt Count MPV Sodium Potassium Chloride Carbon Dioxide Anion Gap BUN Creatinine Estim Creat Clear Calc Estimated GFR Glucose POC Capillary Glucose 113 H 145 H 295 H Calcium Phosphorus Magnesium Total Bilirubin AST ALT Alkaline Phosphatase Total Protein Albumin 07/18/22 07/18/22 07/18/22 05:41 05:41 07:12 WBC 13.2 H RBC 2.64 L Hgb 7.8 L Hct 23.0 L MCV 87.1 MCH 29.5 MCHC 33.9 RDW 13.9 Plt Count 660 H MPV 8.4 Sodium 128 L Potassium 4.2 Chloride 100 Carbon Dioxide 26 Anion Gap 2 L BUN 9 D Creatinine 0.70 Estim Creat Clear Calc 66 Estimated GFR > 60 Glucose 272 H POC Capillary Glucose 220 H Calcium 7.4 L Phosphorus 3.4 Magnesium 1.3 L Total Bilirubin 0.2 AST 13 L ALT 13 Alkaline Phosphatase 251 H Total Protein 7.0 Albumin 2.6 L Microbiology 07/17/22 16:05 Abscess Anaerobic Culture - Preliminary 07/17/22 15:40 Abscess Anaerobic Culture - Preliminary 07/16/22 15:20 Abscess Anaerobic Culture - Preliminary 07/16/22 08:31 Stool Escherichia coli Shiga Toxins - Final 07/16/22 08:31 Stool Campylobacter Antigen Assay - Final 07/16/22 08:31 Stool Cryptosporidium Exam - Final Post-procedural complaints: none Patient Feedback: Patient satisfied with anesthetic care.
--- NOTE | 2022-07-18 10:24 | WPDINTPN ---
Progress Note: A&P Assessment and Plan (1) Severe sepsis: Code(s): A41.9 - Sepsis, unspecified organism; R65.20 - Severe sepsis without septic shock Status: Acute Assessment and Plan: Secondary to prostate abscess 07/16 status post Ultrasound-guided aspiration of an abscess at the inferior base of the penis yielding 2 mL opaque, gómez fluid. Repeat CT 07/17 IMPRESSION: 1. 7.4 x 2.2 x 2.5 cm hyperdense mass in the ventral proximal penis, consistent with retained contrast within the abscess that previously measured 9.0 x 2.2 x 2.6 cm. Note that the abscess component previously seen in the prostate is not visualized without intravenous contrast and does not contain retained contrast from the prior CT. 2. Mild bilateral hydronephrosis. 07/17 -underwent Cystoscopy, aspiration fluid from dariana urethral cavity.? Biopsy of periurethral tissue, complex Whitney catheter placement 18 [place] tip Off IV fluids now. His lactic acid level has normalized. Off vasopressors -likely source abscess of the prostate which was seen on CT scan the abdomen and pelvis done on 07/16/2022 -blood and urine cultures have been obtained and pending -fluid culture is growing Gram-positive bacilli -continue levofloxacin. He did receive 1 dose of gentamicin yesterday (2) Prostatic abscess: Code(s): N41.2 - Abscess of prostate Status: Acute Assessment and Plan: See above (3) Acute renal insufficiency: Code(s): N28.9 - Disorder of kidney and ureter, unspecified Status: Acute Assessment and Plan: Acute renal failure likely related to urinary retention secondary to abscess of the prostate, diabetes Creatinine improved and normalized (4) Diabetes mellitus: Code(s): E11.9 - Type 2 diabetes mellitus without complications Status: Acute Assessment and Plan: Patient also presented with acute hyperglycemia likely related to abscess of the prostate -continue Accu-Cheks, sliding scale insulin -resume Lantus -hemoglobin A1c > 14.0 (5) Anemia: Qualifiers: Anemia type: unspecified type Qualified Code(s): D64.9 - Anemia, unspecified Code(s): D64.9 - Anemia, unspecified Status: Acute Assessment and Plan: Patient has a history of anemia Transfuse if hemoglobin is less than 7 (6) Hyponatremia: Code(s): E87.1 - Hypo-osmolality and hyponatremia Status: Acute Assessment and Plan: Likely secondary to hypovolemia, hyperglycemia Improved Add salt tablet (7) Electrolyte abnormality: Code(s): E87.8 - Other disorders of electrolyte and fluid balance, not elsewhere classified Status: Acute Assessment and Plan: Replacement ordered for low potassium magnesium and phosphorous (8) Cachexia: Code(s): R64 - Cachexia Status: Acute Assessment and Plan: Could be secondary to diabetes. Patient also admits to drinking heavily until March of last year. History is questionable as patient moved from [place]. Denies drug use Will check HIV, hepatitis and QuantiFERON gold Diet ordered Plan DVT prophylaxis: SCDs, start Lovenox Stress ulcer prophylaxis: Not indicated Nutrition: Diabetic diet Case discussed with Urology Code Status: Full code PT OT Incentive spirometry Transfer out of ICU today Subjective Date/time seen: 07/18/22 Overnight events reviewed. Underwent Cystoscopy, aspiration fluid from dariana urethral cavity.? Biopsy of periurethral tissue, complex Whitney catheter placement 18 [place] tip. Admitted to ICU post surgery Afebrile overnight He states he feels better this morning and his pain is significantly improved but still present. Denies any other complaints. All other systems were reviewed and were negative Vitals acceptable Review of Systems Review of Systems: All systems reviewed & are unremarkable except as noted in HPI and below Exam Narrative: General: Pleasant gentleman i
--- NOTE | 2022-07-18 10:54 | PCFNICU ---
ICU Rounding Note: Pt current nutrition DBCC with Glucerna shakes BID. Last recorded weight is 40.4 kg. Bowel Motility:+BM reported 07/17 Labs Reviewed:Glu 272, PO4 1.3, Alb 2.6,Hct 23.0,Hgb 7.8 Meds Noted:Levaquin,Lantus, NovoLog Skin: WNL Additional Notes: Cystoscopy-aspiration fluid from dariana urethral cavity on 07/17. Patient remains on a DBCC. Oral intake has been good 100% of meals. Diet supplements of Glucerna shakes providing an additional 240 kcals and 10 gms protein. Agree with diet orders. Following daily in ICU rounds. Will monitor every 7 days.
[2022-07-18] MEDS: ENOXAPARIN 40 MG/0.4 ML SYRINGE SUB-Q (11:37)
[2022-07-18] MEDS: SODIUM CHLORIDE 500 MG TABLET PO ×2 (11:38→17:01)
--- NOTE | 2022-07-18 11:49 | PM.IMPN ---
Progress Note: A&P Assessment and Plan (1) Prostatic abscess: Code(s): N41.2 - Abscess of prostate Status: Acute (2) Anemia: Qualifiers: Anemia type: unspecified type Qualified Code(s): D64.9 - Anemia, unspecified Code(s): D64.9 - Anemia, unspecified Status: Acute (3) Severe sepsis: Code(s): A41.9 - Sepsis, unspecified organism; R65.20 - Severe sepsis without septic shock Status: Acute (4) Hyponatremia: Code(s): E87.1 - Hypo-osmolality and hyponatremia Status: Acute Plan # prostate abscess # sepsis secondary to abscess -no history of prostate abscess, no history of urine infections, no trauma to prostate -antibiotics: Continue Levaquin -urology consulted Dr. Guzman -checking ESR CRP -trend leukocytosis -repeat labs tomorrow # anemia -unclear etiology of anemia, ordered labs for workup for take count, ferritin, iron panel, haptoglobin, TSH, transferrin, B12, folic acid, bilirubin -type and screen complete, will transfuse if hemoglobin less than 7 -no signs of bleeding # hyponatremia -patient appears to be clinically hypovolemic -checking serum possible couple urine also, urine sodium -continue LR # hypotension -central line placed right IJ, critical care consulted -keep map greater than 65, as needed levophed -patient's blood pressure may be chronically low, patient reports no history of hypotension -IV fluids continue LR at 125 cc/hour, patient given 3 L fluid bolus in the ED with no improvement of BP # poorly-controlled type 2 diabetes -patient will need diabetic Education -patient is emaciated from poorly controlled diabetes -hemoglobin A1c greater than 14 -home regimen is metformin, glipizide, 4 units Lantus nightly -will increase lantus to 10U nightly and adjusted accordingly Diet: Diabetic diet DVT prophylaxis: SCDs, hold chemoprophylaxis for anemia workup Code status: Full code Disposition: Medical course likely home in 3-5 days 07/17/2021 interval history: patient is Sammarinese male with a prostate abscess seen urologist and plan is to drain the abscess today, will follow-up on the culture, being treated with levofloxacin, patient's sister is present in the room, providing ROS, patient denies any abdominal pain nausea or vomiting fever or chills, Subjective Date/time seen: 07/17/22 11:49 Fevers, dysuria HPI-Narrative: Patient is a 47-year-old male with past medical history of type 2 diabetes who presents the ED with complaints of weakness, abdominal pain, dysuria.? Patient is Sammarinese-speaking only and I used tile mechanic helper service to speak with patient.? Patient's daughter also bedside.? Patient recently was diagnosed with diabetes type 2 in June 2022 was started on metformin, glipizide, insulin 4 units Lantus at bedtime.? He was seen in a hospital in [place] where he was living with his and at that time he was told he was anemic as well.? He then went home and his was concerned and to continue to deteriorate at home.? Patient's daughter who lives locally went to [place] to bring him here. In the ED:? Patient's blood pressure is low map 61-68 despite 3 L of IV fluid boluses.? Patient is anemic hemoglobin 8.4, on ABG was 7.3.? He has been typed and screened.? With patient's blood pressure being low, central line was placed for possible vasopressors.? Sodium low 123, creatinine elevated 1.4, glucose elevated.? Hemoglobin A1c greater than 14.? Urinalysis consistent with infection.? Flu negative, COVID negative. 07/17/2021 interval history: patient is Sammarinese male with a prostate abscess seen urologist and plan is to drain the abscess today, will follow-up on the culture, being treated with levofloxacin, patient's sister is present in the room, providing ROS, patient denies any abdominal pain nausea or vomiting fever or chills, Review of Systems Review of Systems: All systems reviewed & are unremarkable except as noted in
[2022-07-18 12:00] LABS: Hepatitis B Surface Antigen Negative (Negative)
[2022-07-18 12:05] LABS: HIV 1/2 Ab P24 Ag Result Negative (Negative)
[2022-07-18 12:06] LABS: HAV RESULT Negative (Negative); Hepatitis B Core IgM Result Negative (Negative)
[2022-07-18 12:18] LABS: Hepatitis C Virus Antibody Negative (Negative)
[2022-07-18 12:27] LABS: Glucose Point of Care 334 mg/dl (65-105)
--- NOTE | 2022-07-18 12:52 | WPDUROPN2 ---
Progress Note: A&P Assessment and Plan (1) Severe sepsis: Code(s): A41.9 - Sepsis, unspecified organism; R65.20 - Severe sepsis without septic shock Status: Acute Assessment and Plan: Postop from Whitney catheter placement with aspiration of purulence from periurethral cavity/diverticulum. Cultures pending. Patient will be discharged home with Whitney catheter of and follow-up in 3-4 weeks for repeat cystoscopy. We discussed the possibility of an atonic and need for chronic or intermittent catheterization. Catheters will be difficult with this. Urethral diverticulum. May need to refer to our reconstructive urologist. Family is aware of all the findings and recommendations. Subjective Subjective Date/Time Seen: 07/18/22 12:52 Post Op day: 1 (Cystoscopy with aspiration of purulence from urethral cavity and Whitney placement) Principal diagnosis: . Urethral abscess Interval history: Patient is feeling better today. I reviewed all the findings with the patient and his sister today. All questions were answered. Review of Systems Review of Systems: All systems reviewed & are unremarkable except as noted in HPI and below Exam Const: General: cooperative and comfortable GI: GI Palp: Yes Soft to palpation Urinary Catheter: Urinary Catheter: patent and draining and urine clear Objective Data Vital Signs Vital Signs: Vital Signs - 24 hr 07/17/22 13:57 07/17/22 14:00 07/17/22 14:00 Temperature Pulse Rate 87 85 Respiratory Rate 16 Blood Pressure 87/58 L 95/73 L Pulse Oximetry 100 Oxygen Delivery Oxygen Flow Rate 07/17/22 15:00 07/17/22 16:30 07/17/22 16:45 Temperature 36.3 C L Pulse Rate 87 85 83 Respiratory Rate 13 12 16 Blood Pressure 95/73 L 109/84 122/88 Pulse Oximetry 100 100 100 Oxygen Delivery Room Air Simple Face Mask Simple Face Mask Oxygen Flow Rate 8 8 07/17/22 17:00 07/17/22 17:15 07/17/22 17:25 Temperature Pulse Rate 96 90 90 Respiratory Rate 16 14 16 Blood Pressure 93/73 L 98/72 L 101/75 Pulse Oximetry 97 98 98 Oxygen Delivery Room Air Room Air Room Air Oxygen Flow Rate 07/17/22 18:00 07/17/22 17:36 07/17/22 17:45 Temperature Pulse Rate 88 Respiratory Rate Blood Pressure 115/83 120/87 Pulse Oximetry Oxygen Delivery Oxygen Flow Rate 07/17/22 18:14 07/17/22 20:00 07/17/22 20:00 Temperature 36.5 C Pulse Rate 88 80 Respiratory Rate 18 Blood Pressure 111/88 Pulse Oximetry 100 99 Oxygen Delivery Room Air Oxygen Flow Rate 07/17/22 20:00 07/17/22 21:35 07/17/22 22:00 Temperature 36.4 C Pulse Rate 80 85 Respiratory Rate 18 Blood Pressure 91/73 L 85/60 L Pulse Oximetry 100 Oxygen Delivery Oxygen Flow Rate 07/17/22 22:00 07/18/22 00:00 07/18/22 00:00 Temperature Pulse Rate 85 79 Respiratory Rate 12 Blood Pressure 92/71 L Pulse Oximetry 98 98 Oxygen Delivery Room Air Oxygen Flow Rate 07/18/22 00:00 07/18/22 02:00 07/18/22 02:00 Temperature 36.6 C Pulse Rate 79 85 85 Respiratory Rate 13 16 Blood Pressure 122/87 110/84 Pulse Oximetry 100 99 Oxygen Delivery Oxygen Flow Rate 07/17/22 21:10 07/18/22 04:00 07/18/22 04:00 Temperature Pulse Rate 78 Respiratory Rate Blood Pressure Pulse Oximetry 99 100 Oxygen Delivery Room Air Room Air Oxygen Flow Rate 07/18/22 04:00 07/18/22 05:30 07/18/22 06:00 Temperature 36.6 C Pulse Rate 78 79 Respiratory Rate 16 Blood Pressure 98/75 L 110/85 Pulse Oximetry 100 Oxygen Delivery Oxygen Flow Rate 07/18/22 06:00 07/18/22 08:00 Temperature 36.8 C Pulse Rate 79 89 Respiratory Rate 16 18 Blood Pressure 108/87 88/66 L Pulse Oximetry 100 96 Oxygen Delivery Oxygen Flow Rate Intake/Output Intake/Output: Intake & Output 07/15/22 07/16/22 07/17/22 07/18/22 23:59 23:59 23:59 23:59 Intake Total 8800 3320 720 Output Total 1374 6830 1750 Balance 6747 5
[2022-07-18 16:25] LABS: Glucose Point of Care 260 mg/dl (65-105)
--- NOTE | 2022-07-18 17:21 | PM.IMPN ---
Progress Note: A&P Assessment and Plan (1) Prostatic abscess: Code(s): N41.2 - Abscess of prostate Status: Acute (2) Anemia: Qualifiers: Anemia type: unspecified type Qualified Code(s): D64.9 - Anemia, unspecified Code(s): D64.9 - Anemia, unspecified Status: Acute (3) Severe sepsis: Code(s): A41.9 - Sepsis, unspecified organism; R65.20 - Severe sepsis without septic shock Status: Acute (4) Hyponatremia: Code(s): E87.1 - Hypo-osmolality and hyponatremia Status: Acute Plan # prostate abscess # sepsis secondary to abscess -no history of prostate abscess, no history of urine infections, no trauma to prostate -antibiotics: Continue Levaquin -urology consulted Dr. Guzman -checking ESR CRP -trend leukocytosis -repeat labs tomorrow # anemia -unclear etiology of anemia, ordered labs for workup for take count, ferritin, iron panel, haptoglobin, TSH, transferrin, B12, folic acid, bilirubin -type and screen complete, will transfuse if hemoglobin less than 7 -no signs of bleeding # hyponatremia -patient appears to be clinically hypovolemic -checking serum possible couple urine also, urine sodium -continue LR # hypotension -central line placed right IJ, critical care consulted -keep map greater than 65, as needed levophed -patient's blood pressure may be chronically low, patient reports no history of hypotension -IV fluids continue LR at 125 cc/hour, patient given 3 L fluid bolus in the ED with no improvement of BP # poorly-controlled type 2 diabetes -patient will need diabetic Education -patient is emaciated from poorly controlled diabetes -hemoglobin A1c greater than 14 -home regimen is metformin, glipizide, 4 units Lantus nightly -will increase lantus to 10U nightly and adjusted accordingly Diet: Diabetic diet DVT prophylaxis: SCDs, hold chemoprophylaxis for anemia workup Code status: Full code Disposition: Medical course likely home in 3-5 days 07/18/2021 interval history: patient is [place] male with a prostate abscess seen urologist and had the abscess drain on 07/17 was sent for culture, will follow-up on the culture, being treated with levofloxacin, patient's sister is present in the room, providing ROS, patient denies any abdominal pain nausea or vomiting fever or chills, today I discussed with ball warper tender patient appears malnourished and chronically ill, concern patient may have sexually transmitted disease such as HIV, hepatitis, possibly TB the workup is in progress, will follow-up Subjective Date/time seen: 07/18/22 17:21 07/18/2021 interval history: patient is [place]ian male with a prostate abscess seen urologist and had the abscess drain on 07/17 was sent for culture, will follow-up on the culture, being treated with levofloxacin, patient's sister is present in the room, providing ROS, patient denies any abdominal pain nausea or vomiting fever or chills, today I discussed with ball warper tender patient appears malnourished and chronically ill, concern patient may have sexually transmitted disease such as HIV, hepatitis, possibly TB the workup is in progress, will follow-up Review of Systems Review of Systems: All systems reviewed & are unremarkable except as noted in HPI and below Exam Narrative: appears chronically ill and cachectic Patient is comfortable, NAD HEENT: eyes are clear and none icteric LUNGS: normal respiratory effort ABD: not distended Lower extremities: no edema SKIN: nonjaundiced Neuro: grossly intact. Objective Data Vital Signs Vital Signs: Vital Signs - 24 hr 07/17/22 17:25 07/17/22 18:00 07/17/22 17:36 Temperature Pulse Rate 90 88 Respiratory Rate 16 Blood Pressure 101/75 115/83 Pulse Oximetry 98 Oxygen Delivery Room Air 07/17/22 17:45 07/17/22 18:14 07/17/22 20:00 Temperature 97.7 F Pulse Rate 88 Respiratory Rate 18 Blood Pressure 120/87 111/88 Pulse Oximetry 100 99 Ox
[2022-07-18] MEDS: levoFLOXacin 500 MG/D5W 100 ML 500 MG/100 ML BAG 100 MG IVPB (18:22)
[2022-07-18] MEDS: MORPHINE SULFATE (*CRX) 2 MG/ML INJ IV PUSH (18:31)
[2022-07-18] MEDS: ACETAMINOPHEN 325 MG TABLET 650 MG PO (20:53)
[2022-07-18 21:11] LABS: Osmolality, Urine 395 mOsm/kg (50-1200)
[2022-07-18 21:14] LABS: Glucose Point of Care 169 mg/dl (65-105)
[2022-07-19] VITALS (13 sets, daily range): BP systolic 89–140; BP diastolic 57–100; PULSE 81–107; RESP 17–18; TEMP 36–37.3; O2SAT 96–99
[2022-07-19] MEDS: MORPHINE SULFATE (*CRX) 2 MG/ML INJ IV PUSH ×2 (01:28→17:26)
[2022-07-19] MEDS: CENTRAL LINE FLUSH 10 ML IV PUSH ×4 (05:04→20:47)
[2022-07-19] MEDS: CENTRAL LINE FLUSH 20 ML IV PUSH (05:04)
[2022-07-19] MEDS: ACETAMINOPHEN 325 MG TABLET 650 MG PO (05:04)
[2022-07-19 05:13] LABS: Hematocrit 21.1 % (42.0-52.0); Mean Corpuscular HGB Conc 32.2 g/dl (32-36); Mean Corpuscular Hemoglobin 27.6 pg (26-34); Mean Corpuscular Volume 85.8 fl (80-100); Mean Platelet Volume 8.3 fl (7.4-10.4); Platelet Count Result 657 k/mm3 (150-375); Red Blood Count 2.46 M/mm3 (4.6-6.20); Red Cell Distribution Width 13.7 % (11.5-14.5); White Blood Count 15.7 K/mm3 (4.5-10.0)
[2022-07-19 05:25] LABS: Hemoglobin 6.8 g/dL (14.0-18.0)
[2022-07-19 05:40] LABS: Alanine Aminotransferase 13 U/L (6-50); Albumin Level 2.7 g/dL (3.5-5.1); Alkaline Phosphatase 179 U/L (38-126); Anion Gap 4 mmol/L (8-16); Aspartate Amino Transferase 16 U/L (17-59); Bilirubin,Total 0.1 mg/dL (0.2-1.3); Blood Urea Nitrogen 15 mg/dL (9-20); Calcium 7.1 mg/dL (8.4-10.2); Carbon Dioxide 29 mmol/L (22-30); Chloride 99 mmol/L (98-107); Estimated CRCL calculation 66 ml/min; Estimated Glomerular Filt Rate > 60; Glucose 112 mg/dL (65-110); Magnesium 1.2 mg/dL (1.6-2.3); Phosphorus 3.7 mg/dL (2.5-4.5); Sodium 132 mmol/L (137-145)
[2022-07-19] MEDS: SODIUM CHLORIDE 0.9% IV 250 ML 30 ML IV CONT ×2 (06:35→17:16)
[2022-07-19 07:56] LABS: Glucose Point of Care 138 mg/dl (65-105)
[2022-07-19] MEDS: ENOXAPARIN 40 MG/0.4 ML SYRINGE SUB-Q (08:40)
[2022-07-19] MEDS: SODIUM CHLORIDE 500 MG TABLET PO ×2 (08:41→17:15)
[2022-07-19] MEDS: MIDODRINE HCL 10 MG TABLET PO (08:41)
[2022-07-19] MEDS: HYDROcodone/acetaminophen (*CRX) 5-325 MG TABLET 1 TAB PO ×2 (08:43→20:31)
--- NOTE | 2022-07-19 08:50 | WPDUROPN2 ---
Progress Note: A&P Assessment and Plan (1) Severe sepsis: Code(s): A41.9 - Sepsis, unspecified organism; R65.20 - Severe sepsis without septic shock Status: Acute Assessment and Plan: Patient has been afebrile. His white count is slightly elevated today. Clinically appears to be improving. Cultures are still pending with lactobacillus and 1 culture. Await final cultures. Patient will be discharged home with Whitney catheter with follow-up in 3-4 weeks. (2) Prostatic abscess: Code(s): N41.2 - Abscess of prostate Status: Acute Assessment and Plan: Will need continued antibiotics pending the sensitivities. Will need to be antibiotics at least another couple of weeks after discharge Subjective Subjective Date/Time Seen: 07/19/22 08:50 Post Op day: 2 Principal diagnosis: Urinary retention, periurethral cavity with purulence Interval history: No major complaints today. White count is slightly elevated but is afebrile. Patient is receiving a transfusion Review of Systems Review of Systems: All systems reviewed & are unremarkable except as noted in HPI and below Exam Const: General: cooperative and comfortable : Penis: Yes normal penis and Yes uncircumcised Objective Data Vital Signs Vital Signs: Vital Signs - 24 hr 07/18/22 10:00 07/18/22 12:00 07/18/22 10:00 Temperature 36.9 C 37.0 C Pulse Rate 87 78 87 Respiratory Rate 13 11 L Blood Pressure 85/66 L 139/99 H Pulse Oximetry 99 100 Oxygen Delivery 07/18/22 12:00 07/18/22 14:00 07/18/22 14:00 Temperature Pulse Rate 90 81 88 Respiratory Rate 18 Blood Pressure Pulse Oximetry 99 Oxygen Delivery 07/18/22 14:29 07/18/22 14:30 07/18/22 14:31 Temperature Pulse Rate 84 85 88 Respiratory Rate 14 16 22 H Blood Pressure 142/91 H 134/101 H Pulse Oximetry 100 98 100 Oxygen Delivery 07/18/22 16:00 07/18/22 18:00 07/18/22 16:00 Temperature 36.4 C L Pulse Rate 85 82 74 Respiratory Rate 16 18 Blood Pressure 109/84 141/95 H Pulse Oximetry 100 98 Oxygen Delivery 07/18/22 20:00 07/18/22 22:00 07/18/22 20:00 Temperature 36.9 C Pulse Rate 83 81 Respiratory Rate 18 Blood Pressure 127/81 Pulse Oximetry 98 Oxygen Delivery Room Air 07/19/22 00:00 07/19/22 04:00 07/19/22 06:30 Temperature 37.3 C Pulse Rate 87 90 91 Respiratory Rate 18 Blood Pressure 99/68 L Pulse Oximetry 99 Oxygen Delivery 07/19/22 06:46 07/19/22 06:00 Temperature 36.6 C 37.1 C Pulse Rate 86 88 Respiratory Rate 17 18 Blood Pressure 90/79 L 89/57 L Pulse Oximetry 98 98 Oxygen Delivery Intake/Output Intake/Output: Intake & Output 07/16/22 07/17/22 07/18/22 07/19/22 23:59 23:59 23:59 23:59 Intake Total 8800 3420 1560 250 Output Total 2053 2750 3750 1050 Balance 6747 670 -2190 -800 Meds/Results Medications: Active Medications Generic Name Dose Route Start Last Admin Trade Name Freq PRN Reason Stop Dose Admin Acetaminophen 650 mg 07/16/22 04:02 07/19/22 05:04 Acetaminophen 325 Mg Tablet PO 650 mg Q4H PRN Administration Mild Pain (1-3) or Fever Hydrocodone Bitart/Acetaminophen 1 tab 07/16/22 04:02 07/19/22 08:43 Hydrocodone/Acetaminophen (*Crx) 5-325 Mg Tablet PO 1 tab Q4H PRN Administration Moderate Pain (4-6) Al Hydrox/Mg Hydrox/Simethicone 30 ml 07/16/22 04:02 Mag Hydrox/Al Hydrox/Simeth 30 Ml Udc PO QID PRN Dyspepsia Bisacodyl 5 mg 07/16/22 04:02 Bisacodyl 5 Mg Tablet Ec PO DAILY PRN Constipation Dextrose 12.5 gm 07/16/22 03:47 Dextrose 50% 25 Gm/50 Ml Syringe IV PUSH PRN PRN Hypoglycemia Protocol Enoxaparin Sodium 40 mg 07/18/22 10:40 07/19/22 08:40 Enoxaparin 40 Mg/0.4 Ml Syringe SUB-Q 40 mg DAILY NAHEED Administration Fentanyl Citrate 12.5 mcg 07/17/22 14:42 Fentanyl Citrate Inj (*Crx) 100 Mcg/2 Ml Vial IV PUSH Q2M PRN Pain Glucag
[2022-07-19] MEDS: MAGNESIUM SULF 4 GM/WATER100ML 4 GM/100 ML BAG IVPB (09:42)
[2022-07-19 10:07] LABS: Haptoglobin 285 mg/dL (43-212)
[2022-07-19 11:57] LABS: Glucose Point of Care 273 mg/dl (65-105)
[2022-07-19 16:49] LABS: Glucose Point of Care 492 mg/dl (65-105)
--- NOTE | 2022-07-19 17:01 | PM.IMPN ---
Progress Note: A&P Assessment and Plan (1) Prostatic abscess: Code(s): N41.2 - Abscess of prostate Status: Acute (2) Anemia: Qualifiers: Anemia type: unspecified type Qualified Code(s): D64.9 - Anemia, unspecified Code(s): D64.9 - Anemia, unspecified Status: Acute (3) Severe sepsis: Code(s): A41.9 - Sepsis, unspecified organism; R65.20 - Severe sepsis without septic shock Status: Acute (4) Hyponatremia: Code(s): E87.1 - Hypo-osmolality and hyponatremia Status: Acute Plan # prostate abscess # sepsis secondary to abscess -no history of prostate abscess, no history of urine infections, no trauma to prostate -antibiotics: Continue Levaquin -urology consulted Dr. Guzman -checking ESR CRP -trend leukocytosis -repeat labs tomorrow # anemia -unclear etiology of anemia, ordered labs for workup for take count, ferritin, iron panel, haptoglobin, TSH, transferrin, B12, folic acid, bilirubin -type and screen complete, will transfuse if hemoglobin less than 7 -no signs of bleeding # hyponatremia -patient appears to be clinically hypovolemic -checking serum possible couple urine also, urine sodium -continue LR # hypotension -central line placed right IJ, critical care consulted -keep map greater than 65, as needed levophed -patient's blood pressure may be chronically low, patient reports no history of hypotension -IV fluids continue LR at 125 cc/hour, patient given 3 L fluid bolus in the ED with no improvement of BP # poorly-controlled type 2 diabetes -patient will need diabetic Education -patient is emaciated from poorly controlled diabetes -hemoglobin A1c greater than 14 -home regimen is metformin, glipizide, 4 units Lantus nightly -will increase lantus to 10U nightly and adjusted accordingly Diet: Diabetic diet DVT prophylaxis: SCDs, hold chemoprophylaxis for anemia workup Code status: Full code Disposition: Medical course likely home in 3-5 days 07/19/2021 interval history: patient is [place] male with a prostate abscess seen urologist and had the abscess drain on 07/17 was sent for culture, initial culture collected from abscess is growing Lactobacillus species, sensitivities is pending, being treated with levofloxacin, another culture was collected on 07/17 no growth so far, will follow-up on the culture, being treated with levofloxacin, today patient able to communicate with minimal Hungarian patient denies any abdominal pain nausea or vomiting fever or chills, on 07/18 I discussed with lead massage therapist patient appears malnourished and chronically ill, concern patient may have sexually transmitted disease such as HIV, hepatitis, however HIV and hepatitis are negative, possibly TB the workup is in progress, will follow-up Subjective Date/time seen: 07/19/22 17:01 07/19/2021 interval history: patient is [place] male with a prostate abscess seen urologist and had the abscess drain on 07/17 was sent for culture, initial culture collected from abscess is growing Lactobacillus species, sensitivities is pending, being treated with levofloxacin, another culture was collected on 07/17 no growth so far, will follow-up on the culture, being treated with levofloxacin, today patient able to communicate with minimal Hungarian patient denies any abdominal pain nausea or vomiting fever or chills, on 07/18 I discussed with lead massage therapist patient appears malnourished and chronically ill, concern patient may have sexually transmitted disease such as HIV, hepatitis, however HIV and hepatitis are negative, possibly TB the workup is in progress, will follow-up Review of Systems Review of Systems: All systems reviewed & are unremarkable except as noted in HPI and below Exam Narrative: appears chronically ill and cachectic Patient is comfortable, NAD HEENT: eyes are clear and none icteric LUNGS: normal respiratory effort ABD: not distended Lower extremities: no edema S
[2022-07-19] MEDS: INSULIN ASPART (*BKC) 100 UNITS/ML SUB-Q (17:41)
[2022-07-19] MEDS: levoFLOXacin 500 MG/D5W 100 ML 500 MG/100 ML BAG 100 MG IVPB (18:10)
[2022-07-19] MEDS: INSULIN GLARGINE (*BKC) 100 UNITS/ML 10 UNITS SUB-Q (18:11)
[2022-07-19] MEDS: FUROSEMIDE INJ 40 MG/4 ML VIAL IV PUSH (18:15)
[2022-07-19 21:03] LABS: Glucose Point of Care 416 mg/dl (65-105)
[2022-07-20] VITALS (8 sets, daily range): BP systolic 101–120; BP diastolic 74–94; PULSE 78–95; RESP 16–18; TEMP 36.1–37.4; O2SAT 95–100
[2022-07-20] MEDS: MORPHINE SULFATE (*CRX) 2 MG/ML INJ IV PUSH ×5 (00:18→21:03)
--- NOTE | 2022-07-20 04:13 | PC.NURSE ---
Received pt with second unit of blood infusing. Completed at 1945 while rounding. No adverse reactions. Discussed plan of care with pt/ brother- who translated for pt. C/o pain to groin area- givenPRN pain meds. Whitney with pale yellow urine in large amount s/p receiving lasix IVP on previous shift.
[2022-07-20 06:35] LABS: Albumin 2.3 g/dL (3.8-4.8); Alpha 1 Globulin 0.5 g/dL (0.2-0.3); Alpha 2 Globulin 1.1 g/dL (0.5-0.9); Beta 1 Globulin 0.4 g/dL (0.4-0.6); Gamma Globulin 1.6 g/dL (0.8-1.7); Protein, Total 6.5 g/dL (6.1-8.1)
[2022-07-20] MEDS: HYDROcodone/acetaminophen (*CRX) 5-325 MG TABLET 1 TAB PO ×2 (06:40→22:22)
[2022-07-20 07:48] LABS: Hematocrit 31.9 % (42.0-52.0); Mean Corpuscular HGB Conc 34.5 g/dl (32-36); Mean Corpuscular Hemoglobin 30.6 pg (26-34); Mean Corpuscular Volume 88.6 fl (80-100); Mean Platelet Volume 8.6 fl (7.4-10.4); Platelet Count Result 681 k/mm3 (150-375); Red Cell Distribution Width 13.2 % (11.5-14.5); White Blood Count 19.4 K/mm3 (4.5-10.0)
[2022-07-20 08:06] LABS: Alanine Aminotransferase 15 U/L (6-50); Albumin Level 3.1 g/dL (3.5-5.1); Alkaline Phosphatase 221 U/L (38-126); Anion Gap 5 mmol/L (8-16); Aspartate Amino Transferase 22 U/L (17-59); Bilirubin,Total 0.4 mg/dL (0.2-1.3); Blood Urea Nitrogen 15 mg/dL (9-20); Calcium 7.9 mg/dL (8.4-10.2); Carbon Dioxide 37 mmol/L (22-30); Chloride 87 mmol/L (98-107); Estimated CRCL calculation 79 ml/min; Estimated Glomerular Filt Rate > 60; Glucose 186 mg/dL (65-110); Magnesium 1.3 mg/dL (1.6-2.3); Phosphorus 3.7 mg/dL (2.5-4.5); Potassium 3.7 mmol/L (3.4-5.0); Sodium 129 mmol/L (137-145)
[2022-07-20 08:26] LABS: Glucose Point of Care 157 mg/dl (65-105)
[2022-07-20] MEDS: INSULIN GLARGINE (*BKC) 100 UNITS/ML 15 UNITS SUB-Q (08:41)
[2022-07-20] MEDS: SODIUM CHLORIDE 500 MG TABLET PO (08:41)
[2022-07-20] MEDS: MIDODRINE HCL 10 MG TABLET PO ×2 (08:41→13:02)
[2022-07-20] MEDS: ENOXAPARIN 40 MG/0.4 ML SYRINGE SUB-Q (08:41)
[2022-07-20] MEDS: metFORMIN HCL 500 MG TABLET 1000 MG PO (08:42)
[2022-07-20] MEDS: glipiZIDE 5 MG TABLET PO (08:42)
[2022-07-20] MEDS: MAGNESIUM SULF 4 GM/WATER100ML 4 GM/100 ML BAG IVPB (08:49)
[2022-07-20 11:38] LABS: Glucose Point of Care 296 mg/dl (65-105)
--- NOTE | 2022-07-20 11:41 | WPDUROPN2 ---
Progress Note: A&P Assessment and Plan (1) Severe sepsis: Code(s): A41.9 - Sepsis, unspecified organism; R65.20 - Severe sepsis without septic shock Status: Acute Assessment and Plan: Patient has been afebrile. His white count is slightly elevated today. Clinically appears to be improving. Cultures are positive with lactobacillus and yeast. we will add diflucan. Await final cultures. Patient will be discharged home with Whitney catheter with follow-up in 3-4 weeks. (2) Prostatic abscess: Code(s): N41.2 - Abscess of prostate Status: Acute Assessment and Plan: Will need continued antibiotics pending the sensitivities. Will need to be antibiotics/antifungals at least another couple of weeks after discharge. Abscess likely due to immunosuppression from uncontrolled DM. needs tight glycemic control Subjective Subjective Date/Time Seen: 07/20/22 11:41 pt seen and examined. denies pain. No drainage. blood sugar 293. Review of Systems Review of Systems: All systems reviewed & are unremarkable except as noted in HPI and below Exam Const: General: cooperative and comfortable HENMT: Mouth: Yes moist mucous membranes Eyes: Sclera: sclerae normal GI: Inspection: non-distended GI Palp: Yes Soft to palpation, No Tenderness to palpation present (GI) and No Guarding due to palpation present (GI) : Penis: Yes normal penis and Yes uncircumcised Other: urine clear, no crepitus, fluctuance or abscess Urinary Catheter: Urinary Catheter: patent and draining and urine clear Objective Data Vital Signs Vital Signs: Vital Signs - 24 hr 07/19/22 14:00 07/19/22 12:00 07/19/22 16:00 Temperature 36.0 C L Pulse Rate 89 81 90 Respiratory Rate 18 Blood Pressure 128/84 Pulse Oximetry 99 Oxygen Delivery 07/19/22 17:07 07/19/22 17:22 07/19/22 20:00 Temperature 37.3 C 37.3 C 36.9 C Pulse Rate 84 84 107 H Respiratory Rate 18 18 18 Blood Pressure 140/100 H 140/100 H 100/67 Pulse Oximetry 97 97 96 Oxygen Delivery 07/19/22 20:00 07/20/22 00:00 07/19/22 20:00 Temperature 36.9 C Pulse Rate 104 H 89 107 H Respiratory Rate 18 Blood Pressure 100/67 Pulse Oximetry 96 Oxygen Delivery 07/20/22 04:00 07/20/22 00:00 07/20/22 04:00 Temperature 36.6 C 36.3 C L Pulse Rate 78 88 87 Respiratory Rate 18 18 Blood Pressure 107/78 101/74 Pulse Oximetry 97 97 Oxygen Delivery 07/20/22 08:15 07/20/22 08:00 Temperature Pulse Rate 89 Respiratory Rate Blood Pressure Pulse Oximetry Oxygen Delivery Room Air Intake/Output Intake/Output: Intake & Output 07/17/22 07/18/22 07/19/22 07/20/22 23:59 23:59 23:59 23:59 Intake Total 3420 1560 2582 2440 Output Total 2750 7737 0149 7102 Balance 047 -1630 -731 -7745 Meds/Results Medications: Active Medications Generic Name Dose Route Start Last Admin Trade Name Freq PRN Reason Stop Dose Admin Acetaminophen 650 mg 07/16/22 04:02 07/19/22 05:04 Acetaminophen 325 Mg Tablet PO 650 mg Q4H PRN Administration Mild Pain (1-3) or Fever Hydrocodone Bitart/Acetaminophen 1 tab 07/16/22 04:02 07/20/22 06:40 Hydrocodone/Acetaminophen (*Crx) 5-325 Mg Tablet PO 1 tab Q4H PRN Administration Moderate Pain (4-6) Al Hydrox/Mg Hydrox/Simethicone 30 ml 07/16/22 04:02 Mag Hydrox/Al Hydrox/Simeth 30 Ml Udc PO QID PRN Dyspepsia Bisacodyl 5 mg 07/16/22 04:02 Bisacodyl 5 Mg Tablet Ec PO DAILY PRN Constipation Dextrose 12.5 gm 07/16/22 03:47 Dextrose 50% 25 Gm/50 Ml Syringe IV PUSH PRN PRN Hypoglycemia Protocol Enoxaparin Sodium 40 mg 07/18/22 10:40 07/20/22 08:41 Enoxaparin 40 Mg/0.4 Ml Syringe SUB-Q 40 mg DAILY NAHEED Administration Fentanyl Citrate 12.5 mcg 07/17/22 14:42 Fentanyl Citrate Inj (*Crx) 100 Mcg/2 Ml Vial IV PUSH Q2M PRN Pain Glipizide 5 mg 07/20/22 09:00 07/20/22 08:42 Glipizid
--- NOTE | 2022-07-20 11:47 | PM.IMPN ---
Progress Note: A&P Assessment and Plan (1) Prostatic abscess: Code(s): N41.2 - Abscess of prostate Status: Acute (2) Anemia: Qualifiers: Anemia type: unspecified type Qualified Code(s): D64.9 - Anemia, unspecified Code(s): D64.9 - Anemia, unspecified Status: Acute (3) Severe sepsis: Code(s): A41.9 - Sepsis, unspecified organism; R65.20 - Severe sepsis without septic shock Status: Acute (4) Hyponatremia: Code(s): E87.1 - Hypo-osmolality and hyponatremia Status: Acute Plan # prostate abscess # sepsis secondary to abscess -no history of prostate abscess, no history of urine infections, no trauma to prostate -antibiotics: Continue Levaquin -urology consulted Dr. Guzman -checking ESR CRP -trend leukocytosis -repeat labs tomorrow # anemia -unclear etiology of anemia, ordered labs for workup for take count, ferritin, iron panel, haptoglobin, TSH, transferrin, B12, folic acid, bilirubin -type and screen complete, will transfuse if hemoglobin less than 7 -no signs of bleeding # hyponatremia -patient appears to be clinically hypovolemic -checking serum possible couple urine also, urine sodium -continue LR # hypotension -central line placed right IJ, critical care consulted -keep map greater than 65, as needed levophed -patient's blood pressure may be chronically low, patient reports no history of hypotension -IV fluids continue LR at 125 cc/hour, patient given 3 L fluid bolus in the ED with no improvement of BP # poorly-controlled type 2 diabetes -patient will need diabetic Education -patient is emaciated from poorly controlled diabetes -hemoglobin A1c greater than 14 -home regimen is metformin, glipizide, 4 units Lantus nightly -will increase lantus to 10U nightly and adjusted accordingly Diet: Diabetic diet DVT prophylaxis: SCDs, hold chemoprophylaxis for anemia workup Code status: Full code Disposition: Medical course likely home in 3-5 days 07/20/2021 interval history: patient is [place] male with a prostate abscess seen by urologist and had the abscess drain on 07/16 upon arrival, was sent for culture, initial culture collected from abscess is growing Lactobacillus species, sensitivities is pending, being treated with levofloxacin, another culture was collected on 07/17 its growing yeast will start patient micafungin, his family is present in the patient denies any abdominal pain nausea or vomiting fever or chills, on 07/18 I discussed with creative writing professor patient appears malnourished and chronically ill, concern patient may have sexually transmitted disease such as HIV, hepatitis, however HIV and hepatitis are negative, possibly TB the workup is in progress, on 07/19 patient hgb dropped to 6.8 and patient was given 2 units of PRBC, patient denies any bleeding, will monitor, will follow-up Subjective Date/time seen: 07/20/22 11:47 07/20/2021 interval history: patient is [place] male with a prostate abscess seen by urologist and had the abscess drain on 07/16 upon arrival, was sent for culture, initial culture collected from abscess is growing Lactobacillus species, sensitivities is pending, being treated with levofloxacin, another culture was collected on 07/17 its growing yeast will start patient micafungin, his family is present in the patient denies any abdominal pain nausea or vomiting fever or chills, on 07/18 I discussed with creative writing professor patient appears malnourished and chronically ill, concern patient may have sexually transmitted disease such as HIV, hepatitis, however HIV and hepatitis are negative, possibly TB the workup is in progress, on 07/19 patient hgb dropped to 6.8 and patient was given 2 units of PRBC, patient denies any bleeding, will monitor, will follow-up Review of Systems Review of Systems: All systems reviewed & are unremarkable except as noted in HPI and below Exam Narrative: appears chronically ill and cachectic Patie
[2022-07-20] MEDS: CENTRAL LINE FLUSH 10 ML IV PUSH ×3 (13:02→21:05)
[2022-07-20] MEDS: INSULIN ASPART (*BKC) 100 UNITS/ML SUB-Q ×2 (13:02→17:00)
[2022-07-20 13:25] LABS: Glucose Point of Care 408 mg/dl (65-105)
[2022-07-20] MEDS: FLUCONAZOLE 100 MG/NACL 50 ML 100 MG/50 ML BTL 50 MG IVPB (14:28)
[2022-07-20 16:53] LABS: Glucose Point of Care 261 mg/dl (65-105)
[2022-07-20] MEDS: levoFLOXacin 500 MG/D5W 100 ML 500 MG/100 ML BAG 100 MG IVPB (17:00)
[2022-07-20 22:08] LABS: Glucose Point of Care 182 mg/dl (65-105)
[2022-07-21] VITALS (8 sets, daily range): BP systolic 104–126; BP diastolic 78–89; PULSE 84–94; RESP 14–18; TEMP 36.2–37.6; O2SAT 97–99
[2022-07-21] MEDS: MORPHINE SULFATE (*CRX) 2 MG/ML INJ IV PUSH ×6 (01:10→21:42)
[2022-07-21] MEDS: CENTRAL LINE FLUSH 10 ML IV PUSH ×4 (05:16→22:00)
[2022-07-21 06:04] LABS: Hematocrit 31.9 % (42.0-52.0); Hemoglobin 10.6 g/dL (14.0-18.0); Mean Corpuscular HGB Conc 33.2 g/dl (32-36); Mean Corpuscular Hemoglobin 29.4 pg (26-34); Mean Corpuscular Volume 88.6 fl (80-100); Mean Platelet Volume 8.2 fl (7.4-10.4); Platelet Count Result 642 k/mm3 (150-375); Red Cell Distribution Width 13.4 % (11.5-14.5); White Blood Count 23.1 K/mm3 (4.5-10.0)
[2022-07-21 06:17] LABS: Alanine Aminotransferase 16 U/L (6-50); Albumin Level 3.1 g/dL (3.5-5.1); Alkaline Phosphatase 244 U/L (38-126); Anion Gap 4 mmol/L (8-16); Aspartate Amino Transferase 27 U/L (17-59); Bilirubin,Total 0.3 mg/dL (0.2-1.3); Blood Urea Nitrogen 18 mg/dL (9-20); Calcium 7.8 mg/dL (8.4-10.2); Carbon Dioxide 34 mmol/L (22-30); Chloride 88 mmol/L (98-107); Estimated CRCL calculation 79 ml/min; Estimated Glomerular Filt Rate > 60; Glucose 272 mg/dL (65-110); Magnesium 1.5 mg/dL (1.6-2.3); Phosphorus 3.6 mg/dL (2.5-4.5); Potassium 4.1 mmol/L (3.4-5.0); Sodium 126 mmol/L (137-145)
[2022-07-21] MEDS: MAG HYDROX/AL HYDROX/SIMETH 30 ML UDC PO (06:26)
[2022-07-21] MEDS: ACETAMINOPHEN 325 MG TABLET 650 MG PO (06:26)
[2022-07-21] MEDS: ENOXAPARIN 40 MG/0.4 ML SYRINGE SUB-Q (08:03)
[2022-07-21] MEDS: INSULIN ASPART (*BKC) 100 UNITS/ML SUB-Q ×2 (08:03→17:00)
[2022-07-21] MEDS: glipiZIDE 5 MG TABLET PO (08:04)
[2022-07-21] MEDS: INSULIN GLARGINE (*BKC) 100 UNITS/ML 15 UNITS SUB-Q (08:04)
[2022-07-21] MEDS: HYDROcodone/acetaminophen (*CRX) 5-325 MG TABLET 1 TAB PO ×4 (08:04→20:06)
[2022-07-21] MEDS: metFORMIN HCL 500 MG TABLET 1000 MG PO (08:04)
[2022-07-21] MEDS: MIDODRINE HCL 10 MG TABLET PO (08:05)
[2022-07-21 08:19] LABS: Glucose Point of Care 259 mg/dl (65-105)
[2022-07-21] MEDS: FLUCONAZOLE 100 MG/NACL 50 ML 100 MG/50 ML BTL 50 MG IVPB (12:05)
[2022-07-21 12:08] LABS: Glucose Point of Care 131 mg/dl (65-105)
--- NOTE | 2022-07-21 13:02 | WPDUROPN2 ---
Progress Note: A&P Assessment and Plan (1) Severe sepsis: Code(s): A41.9 - Sepsis, unspecified organism; R65.20 - Severe sepsis without septic shock Status: Acute Assessment and Plan: Patient has been afebrile. His white count is slightly elevated today to 23. we will check CT to assess for fluid re-accumulation /and or new abscesses. Clinically stable. Cultures are positive with lactobacillus and yeast. he is on levaquin/diflucan. Await final cultures. Patient will ultimately be discharged home with Whitney catheter with follow-up in 3-4 weeks. (2) Prostatic abscess: Code(s): N41.2 - Abscess of prostate Status: Acute Assessment and Plan: Will need continued antibiotics/antifungals pending the sensitivities. Will need to be antibiotics/antifungals at least another couple of weeks after discharge. Abscess likely due to immunosuppression from uncontrolled DM. needs tight glycemic control. -plan to check imaging. NPO at midnight if new abscess has developed Subjective Subjective Date/Time Seen: 07/21/22 13:02 Principal diagnosis: Urinary retention, periurethral cavity with purulence Interval history: No major complaints today. NAEO. White count is slightly elevated but is afebrile. started on diflucan yesterday. Pain stable. tolerating diet. sugars improved. Review of Systems Review of Systems: All systems reviewed & are unremarkable except as noted in HPI and below Cardiovascular: Cardiovascular: Denies chest pain Respiratory: Respiratory: Reports no additional respiratory complaints Gastrointestinal: Gastrointestinal: Reports abdominal pain, Denies nausea and Denies vomiting Genitourinary: Genitourinary: Reports hematuria, Reports dysuria, Denies flank pain, Reports urinary frequency, Reports urinary hesitancy, Denies urinary incontinence and Reports urinary urgency Exam Const: General: cooperative and comfortable HENMT: Mouth: Yes moist mucous membranes Eyes: Sclera: sclerae normal Resp: Effort & Inspection: normal respiratory effort Cardio: Rate: regular rate GI: Inspection: non-distended Other: bladder distention noted on exam : Male General Exam: Yes tenderness ( Over the penoscrotal area where it is tense and consistent with findings ) Penis: Yes normal penis and Yes uncircumcised Other: urine clear, no crepitus, fluctuance or abscess Urinary Catheter: Urinary Catheter: patent and draining and urine clear Objective Data Vital Signs Vital Signs: Vital Signs - 24 hr 07/20/22 14:00 07/20/22 16:00 07/20/22 22:00 Temperature 36.1 C L 37.4 C Pulse Rate 93 84 95 Respiratory Rate 16 18 Blood Pressure 120/94 H 116/75 Pulse Oximetry 100 95 Oxygen Delivery 07/21/22 04:00 07/21/22 00:00 07/20/22 20:00 Temperature Pulse Rate 84 87 91 Respiratory Rate Blood Pressure Pulse Oximetry Oxygen Delivery 07/21/22 06:00 07/21/22 06:26 07/21/22 08:05 Temperature 37.6 C H 37.6 C H 36.9 C Pulse Rate 90 Respiratory Rate 18 Blood Pressure 104/78 Pulse Oximetry 97 Oxygen Delivery 07/21/22 08:15 07/21/22 08:00 Temperature Pulse Rate 86 Respiratory Rate Blood Pressure Pulse Oximetry Oxygen Delivery Room Air Intake/Output Intake/Output: Intake & Output 07/18/22 07/19/22 07/20/22 07/21/22 23:59 23:59 23:59 23:59 Intake Total 1560 2582 3370 240 Output Total 3750 2850 5600 200 Balance -2262 -418 -2230 40 Meds/Results Medications: Active Medications Generic Name Dose Route Start Last Admin Trade Name Freq PRN Reason Stop Dose Admin Acetaminophen 650 mg 07/16/22 04:02 07/21/22 06:26 Acetaminophen 325 Mg Tablet PO 650 mg Q4H PRN Administration Mild Pain (1-3) or Fever Hydrocodone Bitart/Acetaminophen 1 tab 07/16/22 04:02 07/21/22 12:05 Hydrocodone/Acetaminophen (*Crx) 5-325 Mg Tablet PO 1 tab Q4H PRN Administration Moderate Pain (4-6) Al Hydrox/Mg H
--- NOTE | 2022-07-21 13:29 | PM.IMPN ---
Progress Note: A&P Assessment and Plan (1) Prostatic abscess: Code(s): N41.2 - Abscess of prostate Status: Acute (2) Anemia: Qualifiers: Anemia type: unspecified type Qualified Code(s): D64.9 - Anemia, unspecified Code(s): D64.9 - Anemia, unspecified Status: Acute (3) Severe sepsis: Code(s): A41.9 - Sepsis, unspecified organism; R65.20 - Severe sepsis without septic shock Status: Acute (4) Hyponatremia: Code(s): E87.1 - Hypo-osmolality and hyponatremia Status: Acute Plan # prostate abscess # sepsis secondary to abscess -no history of prostate abscess, no history of urine infections, no trauma to prostate -antibiotics: Continue Levaquin -urology consulted Dr. Guzman -checking ESR CRP -trend leukocytosis -repeat labs tomorrow # anemia -unclear etiology of anemia, ordered labs for workup for take count, ferritin, iron panel, haptoglobin, TSH, transferrin, B12, folic acid, bilirubin -type and screen complete, will transfuse if hemoglobin less than 7 -no signs of bleeding # hyponatremia -patient appears to be clinically hypovolemic -checking serum possible couple urine also, urine sodium -continue LR # hypotension -central line placed right IJ, critical care consulted -keep map greater than 65, as needed levophed -patient's blood pressure may be chronically low, patient reports no history of hypotension -IV fluids continue LR at 125 cc/hour, patient given 3 L fluid bolus in the ED with no improvement of BP # poorly-controlled type 2 diabetes -patient will need diabetic Education -patient is emaciated from poorly controlled diabetes -hemoglobin A1c greater than 14 -home regimen is metformin, glipizide, 4 units Lantus nightly -will increase lantus to 10U nightly and adjusted accordingly Diet: Diabetic diet DVT prophylaxis: SCDs, hold chemoprophylaxis for anemia workup Code status: Full code Disposition: Medical course likely home in 3-5 days 07/21/2021 interval history: patient is [place] male with a prostate abscess seen by urologist and had the abscess drain on 07/16 upon arrival, was sent for culture, initial culture collected from abscess is growing Lactobacillus species, sensitivities is pending, being treated with levofloxacin, another culture was collected on 07/17 its growing yeast, patient was seen by his urologist and started patient on Diflucan, once we have sensitivity, will discharge home on IV abx for 2 weeks as recommended by urologist, his family is present in the room, patient denies any abdominal pain nausea or vomiting fever or chills, on 07/18 I discussed with duplex trimmer patient appears malnourished and chronically ill, concern patient may have sexually transmitted disease such as HIV, hepatitis, however HIV and hepatitis are negative, possibly TB the workup is in progress, on 07/19 patient hgb dropped to 6.8 and patient was given 2 units of PRBC, today patient hgb is 10.6, patient denies any bleeding, will monitor, will follow-up Subjective Date/time seen: 07/21/22 13:29 07/21/2021 interval history: patient is [place] male with a prostate abscess seen by urologist and had the abscess drain on 07/16 upon arrival, was sent for culture, initial culture collected from abscess is growing Lactobacillus species, sensitivities is pending, being treated with levofloxacin, another culture was collected on 07/17 its growing yeast, patient was seen by his urologist and started patient on Diflucan, once we have sensitivity, will discharge home on IV abx for 2 weeks as recommended by urologist, his family is present in the room, patient denies any abdominal pain nausea or vomiting fever or chills, on 07/18 I discussed with duplex trimmer patient appears malnourished and chronically ill, concern patient may have sexually transmitted disease such as HIV, hepatitis, however HIV and hepatitis are negative, possibly TB the workup is in progress, on 07/19
[2022-07-21 14:31] LABS: Glucose Point of Care 221 mg/dl (65-105)
[2022-07-21 16:53] LABS: Glucose Point of Care 221 mg/dl (65-105)
[2022-07-21] MEDS: levoFLOXacin 500 MG/D5W 100 ML 500 MG/100 ML BAG 100 MG IVPB (17:00)
[2022-07-21 20:02] LABS: Glucose Point of Care 159 mg/dl (65-105)
[2022-07-22] VITALS (8 sets, daily range): BP systolic 104–157; BP diastolic 72–105; PULSE 90–105; RESP 14–18; TEMP 36.2–38.7; O2SAT 97–100
[2022-07-22] MEDS: HYDROcodone/acetaminophen (*CRX) 5-325 MG TABLET 1 TAB PO ×2 (01:43→11:41)
[2022-07-22] MEDS: MORPHINE SULFATE (*CRX) 2 MG/ML INJ IV PUSH ×2 (03:13→04:40)
[2022-07-22] MEDS: ACETAMINOPHEN 325 MG TABLET 650 MG PO ×2 (04:03→22:48)
--- NOTE | 2022-07-22 04:32 | PC.NURSE ---
Pt with complaints of scrotal pain 7-03/23 all shift. Given norco every 4 hours and morphine 2mg every 4 hours with no relief. T 101.[address] Silva of such. Received order for tylenol 1gram IVPB x1 and increase morphine to 4mg every 3 hours. Pt NPO plan for drainage of abscess for the second time this am.
[2022-07-22 05:30] LABS: Hematocrit 32.6 % (42.0-52.0); Hemoglobin 10.6 g/dL (14.0-18.0); Mean Corpuscular HGB Conc 32.5 g/dl (32-36); Mean Corpuscular Hemoglobin 30.2 pg (26-34); Mean Corpuscular Volume 92.9 fl (80-100); Mean Platelet Volume 8.1 fl (7.4-10.4); Platelet Count Result 610 k/mm3 (150-375); Red Blood Count 3.51 M/mm3 (4.6-6.20); Red Cell Distribution Width 13.7 % (11.5-14.5); White Blood Count 22.4 K/mm3 (4.5-10.0)
[2022-07-22 05:41] LABS: Alanine Aminotransferase 17 U/L (6-50); Albumin Level 3.4 g/dL (3.5-5.1); Alkaline Phosphatase 256 U/L (38-126); Anion Gap 5 mmol/L (8-16); Aspartate Amino Transferase 26 U/L (17-59); Bilirubin,Total 0.4 mg/dL (0.2-1.3); Blood Urea Nitrogen 24 mg/dL (9-20); Calcium 8.3 mg/dL (8.4-10.2); Carbon Dioxide 33 mmol/L (22-30); Chloride 97 mmol/L (98-107); Estimated CRCL calculation 65 ml/min; Estimated Glomerular Filt Rate > 60; Glucose 161 mg/dL (65-110); Magnesium 1.4 mg/dL (1.6-2.3); Phosphorus 3.3 mg/dL (2.5-4.5); Sodium 135 mmol/L (137-145)
--- NOTE | 2022-07-22 07:50 | WPDUROPN2 ---
Progress Note: A&P Assessment and Plan (1) Cachexia: Code(s): R64 - Cachexia Status: Acute (2) Urethral diverticulum: Code(s): N36.1 - Urethral diverticulum Status: Acute (3) Diabetes mellitus: Code(s): E11.9 - Type 2 diabetes mellitus without complications Status: Acute Plan his cultures are positive for yeast as well as lactobacillus. Would continue antibiotics and antifungals. Continue Whitney catheter. White count is stable. Exam shows no signs of Rani's gangrene. He is going to need a long-term Whitney and tight Diabetic control as well as prolonged antibiotics. if he does not clinically improve he may need drainage of this urethral diverticulum. By either Interventional Radiology or incision and drainage in his perineum. 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 we would like to avoid this last option as care would likely be difficult for the patient. No plans for surgical intervention today. Okay for him to have a diet. I will discuss with Dr. Moreno Subjective Subjective Date/Time Seen: 07/22/22 07:50 Patient seen and examined. Chart was reviewed. His white count is stable. He complains of penile pain. CT scan reviewed as well. There is no signs of Rani's gangrene. He does have swelling in the penoscrotal area. There was also a palpable area in his perineum at the site of his urethral diverticulum. Review of Systems Review of Systems: Complains of penile pain. Otherwise tolerating the Whitney catheter. Exam Narrative: Whitney catheter is in place. He has penile edema. There is some erythema of the penis scrotal area. There is no crepitus or signs of Rani's gangrene. There is a palpable area in the perineum at the side of his urethral diverticulum. There is no overlying skin erythema in that area. There is no skin breakdown or necrosis. Constitutionally he is thin to a point of cachexia Objective Data Vital Signs Vital Signs: Vital Signs - 24 hr 07/21/22 08:05 07/21/22 08:15 07/21/22 08:00 Temperature 98.4 F Pulse Rate 86 Respiratory Rate Blood Pressure Pulse Oximetry Oxygen Delivery Room Air 07/21/22 13:50 07/21/22 21:57 07/22/22 04:03 Temperature 97.7 F 97.1 F L 101.6 F H Pulse Rate 88 94 Respiratory Rate 16 14 Blood Pressure 126/89 125/83 Pulse Oximetry 99 97 Oxygen Delivery 07/22/22 04:45 07/22/22 05:29 07/22/22 05:00 Temperature 101.6 F H 99.5 F 99.7 F H Pulse Rate 102 H Respiratory Rate 14 Blood Pressure 104/72 Pulse Oximetry 97 Oxygen Delivery Intake/Output Intake/Output: Intake & Output 07/19/22 07/20/22 07/21/22 07/22/22 23:59 23:59 23:59 23:59 Intake Total 2582 3370 390 100 Output Total 2850 5600 900 150 Balance -268 -2230 -510 -50 Meds/Results Medications: Active Medications Generic Name Dose Route Start Last Admin Trade Name Freq PRN Reason Stop Dose Admin Acetaminophen 650 mg 07/16/22 04:02 07/22/22 04:03 Acetaminophen 325 Mg Tablet PO 650 mg Q4H PRN Administration Mild Pain (1-3) or Fever Hydrocodone Bitart/Acetaminophen 1 tab 07/16/22 04:02 07/22/22 01:43 Hydrocodone/Acetaminophen (*Crx) 5-325 Mg Tablet PO 1 tab Q4H PRN Administration Moderate Pain (4-6) Al Hydrox/Mg Hydrox/Simethicone 30 ml 07/16/22 04:02 07/21/22 06:26 Mag Hydrox/Al Hydrox/Simeth 30 Ml Udc PO 30 ml QID PRN Administration Dyspepsia Bisacodyl 5 mg 07/16/22 04:02 Bisacodyl 5 Mg Tablet Ec PO DAILY PRN Constipation Dextrose 12.5 gm 07/16/22 03:47 Dextrose 50% 25 Gm/50 Ml Syringe IV PUSH PRN PRN Hypoglycemia Protocol Enoxaparin Sodium 40 mg 07/18/22 10:40 07/21/22 08:03 Enoxaparin 40 Mg/0.4 Ml Syringe SUB-Q 40 mg DAILY NAHEED Administration Fentanyl Citrate 12.5 mcg 07/17/22 14:42 Fentanyl Citra
[2022-07-22 08:09] LABS: Glucose Point of Care 184 mg/dl (65-105)
[2022-07-22] MEDS: INSULIN GLARGINE (*BKC) 100 UNITS/ML 15 UNITS SUB-Q (08:24)
[2022-07-22] MEDS: MORPHINE SULFATE (*CRX) 4 MG/ML INJ IV PUSH ×2 (08:24→20:56)
[2022-07-22] MEDS: glipiZIDE 5 MG TABLET PO (08:25)
[2022-07-22] MEDS: ENOXAPARIN 40 MG/0.4 ML SYRINGE SUB-Q (08:25)
[2022-07-22] MEDS: MIDODRINE HCL 10 MG TABLET PO ×3 (08:25→18:37)
[2022-07-22] MEDS: metFORMIN HCL 500 MG TABLET 1000 MG PO (08:25)
[2022-07-22] MEDS: CENTRAL LINE FLUSH 10 ML IV PUSH ×3 (08:26→20:55)
[2022-07-22] MEDS: MAGNESIUM SULFATE 3GM/D5W100ML 3 GM/100 ML BAG IVPB (11:41)
[2022-07-22 12:03] LABS: Glucose Point of Care 103 mg/dl (65-105)
[2022-07-22] MEDS: FLUCONAZOLE 100 MG TABLET 200 MG PO (12:48)
[2022-07-22 13:49] LABS: NIL 0.06 IU/mL; Quantiferon TB Plus, 1T NEGATIVE (NEGATIVE); TB1-NIL <0.00 IU/mL; TB2-NIL <0.00 IU/mL
--- NOTE | 2022-07-22 15:09 | PM.IMPN ---
Progress Note: A&P Assessment and Plan (1) Prostatic abscess: Code(s): N41.2 - Abscess of prostate Status: Acute (2) Anemia: Qualifiers: Anemia type: unspecified type Qualified Code(s): D64.9 - Anemia, unspecified Code(s): D64.9 - Anemia, unspecified Status: Acute (3) Severe sepsis: Code(s): A41.9 - Sepsis, unspecified organism; R65.20 - Severe sepsis without septic shock Status: Acute (4) Hyponatremia: Code(s): E87.1 - Hypo-osmolality and hyponatremia Status: Acute Plan # prostate abscess # sepsis secondary to abscess -no history of prostate abscess, no history of urine infections, no trauma to prostate -antibiotics: Continue Levaquin -urology consulted Dr. Guzman -checking ESR CRP -trend leukocytosis -repeat labs tomorrow # anemia -unclear etiology of anemia, ordered labs for workup for take count, ferritin, iron panel, haptoglobin, TSH, transferrin, B12, folic acid, bilirubin -type and screen complete, will transfuse if hemoglobin less than 7 -no signs of bleeding # hyponatremia -patient appears to be clinically hypovolemic -checking serum possible couple urine also, urine sodium -continue LR # hypotension -central line placed right IJ, critical care consulted -keep map greater than 65, as needed levophed -patient's blood pressure may be chronically low, patient reports no history of hypotension -IV fluids continue LR at 125 cc/hour, patient given 3 L fluid bolus in the ED with no improvement of BP # poorly-controlled type 2 diabetes -patient will need diabetic Education -patient is emaciated from poorly controlled diabetes -hemoglobin A1c greater than 14 -home regimen is metformin, glipizide, 4 units Lantus nightly -will increase lantus to 10U nightly and adjusted accordingly Diet: Diabetic diet DVT prophylaxis: SCDs, hold chemoprophylaxis for anemia workup Code status: Full code Disposition: Medical course likely home in 3-5 days 07/22/2021 interval history: patient is [place] male with a prostate abscess seen by urologist and had the abscess drain on 07/16 upon arrival, was sent for culture, initial culture collected from abscess is growing Lactobacillus species, sensitivities is pending, being treated with levofloxacin, another culture was collected on 07/17 its growing yeast, patient was seen by his urologist and started patient on Diflucan, once we have sensitivity, will discharge home on IV abx for 2 weeks as recommended by urologist, his family is present in the room, patient denies any abdominal pain nausea or vomiting fever or chills, on 07/18 I discussed with electromechanical equipment tester, today patient was seen his urologist and patient may need further procedures for I&D and further recommendation to follow, will continue to monitor, patient appears malnourished and chronically ill, concern patient may have sexually transmitted disease such as HIV, hepatitis, however HIV, hepatitis and TB are negative, on 07/19 patient hgb dropped to 6.8 and patient was given 2 units of PRBC, today patient hgb is 10.6 and stable, , patient denies any bleeding, will monitor, will follow-up Subjective Date/time seen: 07/22/22 15:09 07/22/2021 interval history: patient is [place] male with a prostate abscess seen by urologist and had the abscess drain on 07/16 upon arrival, was sent for culture, initial culture collected from abscess is growing Lactobacillus species, sensitivities is pending, being treated with levofloxacin, another culture was collected on 07/17 its growing yeast, patient was seen by his urologist and started patient on Diflucan, once we have sensitivity, will discharge home on IV abx for 2 weeks as recommended by urologist, his family is present in the room, patient denies any abdominal pain nausea or vomiting fever or chills, on 07/18 I discussed with electromechanical equipment tester, today patient was seen his urologist and patient may need further procedures for I
[2022-07-22 17:26] LABS: Glucose Point of Care 153 mg/dl (65-105)
[2022-07-22] MEDS: levoFLOXacin 500 MG TABLET PO (20:55)
[2022-07-23] VITALS (13 sets, daily range): BP systolic 91–165; BP diastolic 66–111; PULSE 83–103; RESP 13–22; TEMP 36.4–37.6; O2SAT 97–100
[2022-07-23 00:31] LABS: Glucose Point of Care 215 mg/dl (65-105)
[2022-07-23] MEDS: MORPHINE SULFATE (*CRX) 4 MG/ML INJ IV PUSH ×4 (00:58→16:16)
[2022-07-23] MEDS: CENTRAL LINE FLUSH 10 ML IV PUSH ×2 (05:46→22:19)
--- NOTE | 2022-07-23 07:21 | WPDUROPN2 ---
Progress Note: A&P Assessment and Plan (1) Scrotal abscess: Code(s): N49.2 - Inflammatory disorders of scrotum Status: Acute Assessment and Plan: Induration appears to be worsening. CT also somewhat confusing as it revealed a distended bladder despite the Whitney catheter. Will proceed with cystoscopy suprapubic tube placement and most likely some incisions and then. Scrotal perineal area to see if any abscess can be drained. (2) Retention, urine: Code(s): R33.9 - Retention of urine, unspecified Status: Acute Subjective Subjective Date/Time Seen: 07/23/22 07:21 Principal diagnosis: Urethral diverticulum with abscess Interval history: The patient appears to be worsening with his white count. It is pending today. Clinically he is hemodynamically stable but on physical exam he has further swelling and induration in the dariana penile and scrotal area. Review of Systems Review of Systems: All systems reviewed & are unremarkable except as noted in HPI and below Exam Const: General: cooperative; No comfortable : Penis: Yes uncircumcised and Yes edematous Scrotum: edematous Urinary Catheter: Urinary Catheter: urine clear Objective Data Vital Signs Vital Signs: Vital Signs - 24 hr 07/22/22 08:00 07/22/22 14:00 07/22/22 22:00 Temperature 36.2 C L 38.4 C H Pulse Rate 105 H 90 Respiratory Rate 18 18 Blood Pressure 157/105 H 140/90 Pulse Oximetry 100 98 Oxygen Delivery Room Air 07/22/22 22:48 07/22/22 23:48 07/23/22 00:00 Temperature 38.4 C H 37.6 C 37.6 C Pulse Rate Respiratory Rate Blood Pressure Pulse Oximetry Oxygen Delivery 07/23/22 04:47 07/23/22 06:00 Temperature 36.4 C 36.6 C Pulse Rate 83 Respiratory Rate 18 Blood Pressure 97/66 L Pulse Oximetry 99 Oxygen Delivery Intake/Output Intake/Output: Intake & Output 07/20/22 07/21/22 07/22/22 07/23/22 23:59 23:59 23:59 23:59 Intake Total 3370 390 580 100 Output Total 5600 900 1320 1200 Balance -2230 -510 -570 -1100 Meds/Results Medications: Active Medications Generic Name Dose Route Start Last Admin Trade Name Freq PRN Reason Stop Dose Admin Acetaminophen 650 mg 07/16/22 04:02 07/22/22 22:48 Acetaminophen 325 Mg Tablet PO 650 mg Q4H PRN Administration Mild Pain (1-3) or Fever Hydrocodone Bitart/Acetaminophen 1 tab 07/16/22 04:02 07/22/22 11:41 Hydrocodone/Acetaminophen (*Crx) 5-325 Mg Tablet PO 1 tab Q4H PRN Administration Moderate Pain (4-6) Al Hydrox/Mg Hydrox/Simethicone 30 ml 07/16/22 04:02 07/21/22 06:26 Mag Hydrox/Al Hydrox/Simeth 30 Ml Udc PO 30 ml QID PRN Administration Dyspepsia Bisacodyl 5 mg 07/16/22 04:02 Bisacodyl 5 Mg Tablet Ec PO DAILY PRN Constipation Dextrose 12.5 gm 07/16/22 03:47 Dextrose 50% 25 Gm/50 Ml Syringe IV PUSH PRN PRN Hypoglycemia Protocol Enoxaparin Sodium 40 mg 07/18/22 10:40 07/22/22 08:25 Enoxaparin 40 Mg/0.4 Ml Syringe SUB-Q 40 mg DAILY NAHEED Administration Fentanyl Citrate 12.5 mcg 07/17/22 14:42 Fentanyl Citrate Inj (*Crx) 100 Mcg/2 Ml Vial IV PUSH Q2M PRN Pain Fluconazole 200 mg 07/22/22 12:00 07/22/22 12:48 Fluconazole 100 Mg Tablet PO 08/16/22 09:01 200 mg QAM NAHEED Administration Glipizide 5 mg 07/20/22 09:00 07/22/22 08:25 Glipizide 5 Mg Tablet PO 5 mg DAILY NAHEED Administration Glucagon 1 mg 07/16/22 03:47 Glucagon For Inj 1 Mg Vial IM PRN PRN Hypoglycemia Protocol Glucose 15 gm 07/16/22 03:47 Glucose Oral Gel 15 Gm Of Glucse In 37.5 Gm Tube PO PRN PRN Hypoglycemia Protocol Dextrose 1,000 mls @ 100 mls/hr 07/16/22 03:47 Dextrose 5% 1,000 Ml IVPB PRN PRN Hypoglycemia Protocol Insulin Aspart 3 - 6 units 07/16/22 08:00 07/22/22 17:37 Insulin Aspart (*Bkc) 100 Units/Ml SUB-Q Not Given TIDWM NAHEED Protocol Insulin
[2022-07-23 08:00] LABS: Glucose Point of Care 123 mg/dl (65-105)
--- NOTE | 2022-07-23 10:12 | PCOTNOTE ---
Attempted OT treatment, patient declines at this time and reports to much pain . RN aware. Will follow.
[2022-07-23] MEDS: FLUCONAZOLE 100 MG TABLET 200 MG PO (10:35)
[2022-07-23] MEDS: MIDODRINE HCL 10 MG TABLET PO (10:35)
[2022-07-23 11:28] LABS: Hematocrit 31.7 % (42.0-52.0); Hemoglobin 10.1 g/dL (14.0-18.0); Mean Corpuscular HGB Conc 31.9 g/dl (32-36); Mean Corpuscular Hemoglobin 30.1 pg (26-34); Mean Corpuscular Volume 94.3 fl (80-100); Platelet Count Result 602 k/mm3 (150-375); Red Blood Count 3.36 M/mm3 (4.6-6.20); Red Cell Distribution Width 13.8 % (11.5-14.5); White Blood Count 21.8 K/mm3 (4.5-10.0)
[2022-07-23 11:43] LABS: Glucose Point of Care 139 mg/dl (65-105)
--- NOTE | 2022-07-23 11:43 | PC.NURSE ---
michael emptied of 250mls clear, yellow urine. Flushed per protocol with clear, yellow urine returned. Pt offers no complaints at this time.
[2022-07-23 11:44] LABS: Anion Gap 4 mmol/L (8-16); Blood Urea Nitrogen 17 mg/dL (9-20); Calcium 8.1 mg/dL (8.4-10.2); Carbon Dioxide 32 mmol/L (22-30); Chloride 96 mmol/L (98-107); Estimated CRCL calculation 84 ml/min; Estimated Glomerular Filt Rate > 60; Glucose 129 mg/dL (65-110); Magnesium 1.4 mg/dL (1.6-2.3); Potassium 4.4 mmol/L (3.4-5.0); Sodium 132 mmol/L (137-145)
--- NOTE | 2022-07-23 15:03 | PM.IMPN ---
Progress Note: A&P Assessment and Plan (1) Prostatic abscess: Code(s): N41.2 - Abscess of prostate Status: Acute (2) Anemia: Qualifiers: Anemia type: unspecified type Qualified Code(s): D64.9 - Anemia, unspecified Code(s): D64.9 - Anemia, unspecified Status: Acute (3) Severe sepsis: Code(s): A41.9 - Sepsis, unspecified organism; R65.20 - Severe sepsis without septic shock Status: Acute (4) Hyponatremia: Code(s): E87.1 - Hypo-osmolality and hyponatremia Status: Acute Plan # prostate abscess # sepsis secondary to abscess -no history of prostate abscess, no history of urine infections, no trauma to prostate -antibiotics: Continue Levaquin -urology consulted Dr. Guzman -checking ESR CRP -trend leukocytosis -repeat labs tomorrow # anemia -unclear etiology of anemia, ordered labs for workup for take count, ferritin, iron panel, haptoglobin, TSH, transferrin, B12, folic acid, bilirubin -type and screen complete, will transfuse if hemoglobin less than 7 -no signs of bleeding # hyponatremia -patient appears to be clinically hypovolemic -checking serum possible couple urine also, urine sodium -continue LR # hypotension -central line placed right IJ, critical care consulted -keep map greater than 65, as needed levophed -patient's blood pressure may be chronically low, patient reports no history of hypotension -IV fluids continue LR at 125 cc/hour, patient given 3 L fluid bolus in the ED with no improvement of BP # poorly-controlled type 2 diabetes -patient will need diabetic Education -patient is emaciated from poorly controlled diabetes -hemoglobin A1c greater than 14 -home regimen is metformin, glipizide, 4 units Lantus nightly -will increase lantus to 10U nightly and adjusted accordingly Diet: Diabetic diet DVT prophylaxis: SCDs, hold chemoprophylaxis for anemia workup Code status: Full code Disposition: Medical course likely home in 3-5 days 07/23/2021 interval history: patient is Citizen Of [place] male with a prostate abscess seen by urologist and had the abscess drain on 07/16 upon arrival, was sent for culture, initial culture collected from abscess is growing Lactobacillus species, sensitivities is pending, being treated with levofloxacin, another culture was collected on 07/17 its growing yeast, patient was seen by his urologist and started patient on Diflucan, once we have sensitivity, will discharge home on IV abx for 2 weeks as recommended by urologist, on 07/23 urologist saw him examined him and recommended further evaluation with I and D, placing suprapubic catheter, will follow up and plan. patient denies any abdominal pain nausea or vomiting fever or chills, on 07/18 I discussed with dinkey engineer patient appears malnourished and chronically ill, concern patient may have sexually transmitted disease such as HIV, hepatitis, however HIV, hepatitis and TB are negative, on 07/19 patient hgb dropped to 6.8 and patient was given 2 units of PRBC, today patient hgb is 10.6 and stable, , patient denies any bleeding, will monitor, will follow-up Subjective Date/time seen: 07/23/22 15:03 07/23/2021 interval history: patient is Citizen Of [place] male with a prostate abscess seen by urologist and had the abscess drain on 07/16 upon arrival, was sent for culture, initial culture collected from abscess is growing Lactobacillus species, sensitivities is pending, being treated with levofloxacin, another culture was collected on 07/17 its growing yeast, patient was seen by his urologist and started patient on Diflucan, once we have sensitivity, will discharge home on IV abx for 2 weeks as recommended by urologist, on 07/23 urologist saw him examined him and recommended further evaluation with I and D, placing suprapubic catheter, will follow up and plan. patient denies any abdominal pain nausea or vomiting fever or chills, on 07/18 I discussed with dinkey engineer patient appear
[2022-07-23 16:55] LABS: Glucose Point of Care 109 mg/dl (65-105)
--- NOTE | 2022-07-23 17:05 | WPDHPUPDATE1 ---
History and Physical Update Update Date/Time: 07/23/22 17:05 History and Physical has been reviewed, including an updated exam of the patient. There are NO changes in the patient's condition. Risks, benefits, and alternatives have been discussed and questions answered. Patient agrees to proceed with procedure. Proceed with cystoscopy, suprapubic tube placement, possible I and D scrotal abscess
--- NOTE | 2022-07-23 17:29 | PC.NURSE ---
Pt transported to surgery.
--- NOTE | 2022-07-23 17:59 | WPDANESEPPF ---
Anes - Initial Pre Proc Eval Procedure: Operation Date: 07/17/22 15:30 Proposed Procedures p Incision And Drainage [place]-Scrotal Abscess - Yaya Vela MD s Cystoscopy - Yaya Vela MD Operation Date: 07/23/22 14:00 Proposed Procedures p Cystoscopy,Insertion Suprapubic Catheter - Yaya Vela MD s I&D Scrotal Abscess - Yaya Vela MD Date/Time: 07/23/22 17:59 Surgeon: Medhat Schwartz DO Pre Op Diagnosis: sepsis, prostatic abscess, DM, anemia Patient Data Age: 47 Gender: M Height: 1.65 m Weight: 45 kg Last Vital Signs Temp 37.4 C 07/23/22 14:00 Pulse 91 07/23/22 14:00 Resp 22 H 07/23/22 14:00 BP 114/74 07/23/22 14:00 Pulse Ox 100 07/23/22 14:00 O2 Del Method Room Air 07/23/22 10:48 O2 Flow Rate 8 07/17/22 16:45 Allergies Allergy/AdvReac Type Severity Reaction Status Date / Time No Known Allergies Allergy Verified 07/17/22 14:43 Home Medications Medication Instructions Recorded Confirmed Type glipizide 5 mg tablet 5 mg PO DAILY 07/16/22 07/16/22 History insulin glargine 100 unit/mL 4 unit subcut QAM 07/16/22 07/16/22 History subcutaneous solution (Lantus U-100 Insulin) metformin 500 mg tablet 1,000 mg PO DAILY 07/16/22 07/16/22 History Laboratory Tests 07/22/22 07/23/22 07/23/22 21:34 07:57 11:13 WBC RBC Hgb Hct MCV MCH MCHC RDW Plt Count MPV Sodium 132 mmol/L L mmol/L (137-145) Potassium 4.4 mmol/L mmol/L (3.4-5.0) Chloride 96 mmol/L L mmol/L (98-107) Carbon Dioxide 32 mmol/L H mmol/L (22-30) Anion Gap 4 mmol/L L mmol/L (8-16) BUN 17 mg/dL mg/dL (9-20) Creatinine 0.60 mg/dL L mg/dL (0.7-1.3) Estim Creat Clear Calc 84 ml/min ml/min Estimated GFR > 60 (59 - ) Glucose 129 mg/dL H mg/dL (65-110) POC Capillary Glucose 215 mg/dl H mg/dl 123 mg/dl H mg/dl (65-105) (65-105) Calcium 8.1 mg/dL L mg/dL (8.4-10.2) Magnesium 1.4 mg/dL L mg/dL (1.6-2.3) 07/23/22 07/23/22 07/23/22 11:14 11:39 16:48 WBC 21.8 K/mm3 H K/mm3 (4.5-10.0) RBC 3.36 M/mm3 L M/mm3 (4.6-6.20) Hgb 10.1 g/dL L g/dL (14.0-18.0) Hct 31.7 % L % (42.0-52.0) MCV 94.3 fl fl (80-100) MCH 30.1 pg pg (26-34) MCHC 31.9 g/dl L g/dl (32-36) RDW 13.8 % % (11.5-14.5) Plt Count 602 k/mm3 H k/mm3 (150-375) MPV 8.0 fl fl (7.4-10.4) Sodium Potassium Chloride Carbon Dioxide Anion Gap BUN Creatinine Estim Creat Clear Calc Estimated GFR Glucose POC Capillary Glucose 139 mg/dl H mg/dl 109 mg/dl H mg/dl (65-105) (65-105) Calcium Magnesium Patient hx anesthesia problems: none Family hx anesthesia problems: none Results Review: All pre-operative results and documents have been reviewed as part of the pre-operative evaluation. [facility] Past Medical History Medical History Anemia Diabetes mellitus Surgical History Surgical History Hx of appendectomy Social History Social History Smoking status: Never smoker Alcohol intake: former Substance use: never Lack of Transportation: No Lack of Food: Sometimes True Current Housing: I Have Housing Concerned About Future Housing: No Difficulty Paying Gas/Electric Bills: YES Difficulty Paying for Meds: YES Currently Unemployed: No Education: Never Attended/Kindergarten Only Di
[2022-07-23 18:21] LABS: Glucose Point of Care 104 mg/dl (65-105)
[2022-07-23] MEDS: ceFAZolin 2 GM/D5W 50 ML 2 GM/50 ML BAG IVPB (19:31)
[2022-07-23] MEDS: LIDOCAINE HCL 1% PF 30 ML VIAL 10 ML INFILTRATE (20:26)
--- NOTE | 2022-07-23 20:36 | W.PM.PROC2 ---
Procedure Note - Detailed Date of Procedure 07/23/22 Pre-op Diagnosis Sepsis with periurethral diverticular abscess and urinary retention Post-op Diagnosis Same Procedure Performed Cystoscopy, placement of suprapubic catheter, complex Whitney exchange, Surgeon Yaya Vela MD Anesthesia General Findings Significant purulence in bladder as well as urethral diverticulum Description of Procedure Patient is taken to the operative suite correctly identified. Once anesthesia was obtained was placed in dorsal lithotomy position and prepped and draped usual sterile fashion. Patient has a [place] tip catheter in. I placed a wire through this [place] tip into the bladder under fluoroscopic guidance. We then removed the Whitney catheter. Nineteen Croatian cystoscope was then inserted into the bladder direct vision. He has a very high median bar area. Upon entering the bladder again it was very difficult to see and addie purulence came out. I irrigated this multiple times. I then placed the patient in Trendelenburg position and filled his bladder. Using a [employer] guide we its inserted a needle into the bladder. A wire was then placed through this needle. We dilated the tract up to 20 Croatian. Sixteen Croatian [place] tip catheter was then inserted into the bladder. This was visualized endoscopically. 10 cc were placed in the balloon. I then scoped the periurethral diverticulum which again had some purulence a we irrigated that out. A 16 Croatian [place] tip catheter was then placed into the bladder and inflated with 5 cc of sterile water. Again there was no distinct area of fluctuance noted to in size. I did place an 18 gauge needle in the perineal area to see if I could aspirate any fluid and none were obtained. At this point the suprapubic catheter site was anesthetized with 1% lidocaine. A 2-0 nylon was used to secure the suprapubic tube. I used the suprapubic tube as a inflow for irrigation. Patient is taken recovery stable condition. If patient continues to have issues he may need to be transferred to facility that has a reconstructive urologist present. Estimated Blood Loss 10 Urine Output 50 Drains Yes Packing No Pathology Yes Complications No immediate complications Condition Stable Disposition PACU
[2022-07-23] MEDS: LACTATED RINGERS 1,000 ML 30 ML IV CONT (20:42)
[2022-07-23 20:58] LABS: Glucose Point of Care 99 mg/dl (65-105)
[2022-07-23] MEDS: levoFLOXacin 500 MG TABLET PO (22:18)
[2022-07-23] MEDS: HYDROcodone/acetaminophen (*CRX) 5-325 MG TABLET 1 TAB PO (22:19)
[2022-07-24 02:00] VITALS: BP 97/74; PULSE 73; RESP 18; TEMP 36; O2SAT 99
[2022-07-24 06:00] VITALS: BP 109/89; PULSE 78; RESP 16; TEMP 36.1; O2SAT 98
[2022-07-24] MEDS: CENTRAL LINE FLUSH 10 ML IV PUSH ×3 (06:20→17:17)
[2022-07-24 06:31] LABS: Hematocrit 34.2 % (42.0-52.0); Hemoglobin 11.2 g/dL (14.0-18.0); Mean Corpuscular HGB Conc 32.7 g/dl (32-36); Mean Corpuscular Hemoglobin 29.7 pg (26-34); Mean Corpuscular Volume 90.7 fl (80-100); Mean Platelet Volume 8.2 fl (7.4-10.4); Platelet Count Result 690 k/mm3 (150-375); Red Blood Count 3.77 M/mm3 (4.6-6.20); Red Cell Distribution Width 13.9 % (11.5-14.5); White Blood Count 23.8 K/mm3 (4.5-10.0)
[2022-07-24 06:47] LABS: Anion Gap 8 mmol/L (8-16); Blood Urea Nitrogen 25 mg/dL (9-20); Calcium 8.2 mg/dL (8.4-10.2); Carbon Dioxide 29 mmol/L (22-30); Chloride 97 mmol/L (98-107); Estimated CRCL calculation 73 ml/min; Estimated Glomerular Filt Rate > 60; Glucose 359 mg/dL (65-110); Magnesium 1.5 mg/dL (1.6-2.3); Potassium 4.4 mmol/L (3.4-5.0); Sodium 134 mmol/L (137-145)
[2022-07-24 07:54] LABS: Glucose Point of Care 359 mg/dl (65-105)
[2022-07-24] MEDS: MIDODRINE HCL 10 MG TABLET PO ×3 (08:04→17:17)
[2022-07-24] MEDS: ENOXAPARIN 40 MG/0.4 ML SYRINGE SUB-Q (08:04)
[2022-07-24] MEDS: FLUCONAZOLE 100 MG TABLET 200 MG PO (08:05)
[2022-07-24] MEDS: metFORMIN HCL 500 MG TABLET 1000 MG PO (08:05)
[2022-07-24] MEDS: glipiZIDE 5 MG TABLET PO (08:05)
[2022-07-24] MEDS: INSULIN ASPART (*BKC) 100 UNITS/ML SUB-Q ×3 (08:06→17:17)
[2022-07-24] MEDS: INSULIN GLARGINE (*BKC) 100 UNITS/ML 22 UNITS SUB-Q (08:06)
--- NOTE | 2022-07-24 08:14 | WPDUROPN2 ---
Progress Note: A&P Assessment and Plan (1) Urethral diverticulum: Code(s): N36.1 - Urethral diverticulum Status: Acute Assessment and Plan: Will require evaluation by reconstructive urologist. For some reason we are having a difficult time clearing him of his infection. Will have input pharmacy ID regarding antibiotic use as cultures have not been very specific. May require transfer to tertiary center if does not improve (2) Retention, urine: Code(s): R33.9 - Retention of urine, unspecified Status: Acute Assessment and Plan: Suprapubic tube placed last night. Urine and is clear at this time with CBI. Will plan weaning to off (3) Prostatic abscess: Code(s): N41.2 - Abscess of prostate Status: Acute Assessment and Plan: May need to re-evaluate with a contrast study as white count continues to be elevated Subjective Subjective Date/Time Seen: 07/24/22 08:14 Principal diagnosis: . Urethral diverticulum with abscess/UTI and urinary retention Interval history: Suprapubic tube placed last night with exchange of Whitney catheter. Urine was essentially milky in color. Cultures pending. Patient still has discomfort at a level of 7. Remains afebrile but white count at 23,000 Review of Systems Review of Systems: All systems reviewed & are unremarkable except as noted in HPI and below Exam Const: General: cooperative : Penis: Yes uncircumcised and Yes edematous Scrotum: other (Again just an unusual for examination. Has very prominent perineal body) Objective Data Vital Signs Vital Signs: Vital Signs - 24 hr 07/23/22 10:48 07/23/22 14:00 07/23/22 18:03 Temperature 37.4 C 37.6 C Pulse Rate 91 87 Respiratory Rate 22 H 16 Blood Pressure 114/74 126/87 Pulse Oximetry 100 97 Oxygen Delivery Room Air Room Air Oxygen Flow Rate 07/23/22 20:42 07/23/22 20:45 07/23/22 21:00 Temperature 37.2 C Pulse Rate 90 90 93 Respiratory Rate 18 14 20 Blood Pressure 165/111 H 159/104 H 150/101 H Pulse Oximetry 100 100 99 Oxygen Delivery Simple Face Mask Room Air Room Air Oxygen Flow Rate 10 07/23/22 21:15 07/23/22 21:30 07/23/22 21:55 Temperature 36.6 C Pulse Rate 91 90 95 Respiratory Rate 13 14 18 Blood Pressure 141/99 H 123/94 H 96/70 L Pulse Oximetry 99 99 99 Oxygen Delivery Room Air Room Air Oxygen Flow Rate 07/23/22 22:10 07/23/22 22:40 07/24/22 06:00 Temperature 36.8 C 37.1 C 36.1 C L Pulse Rate 103 H 99 78 Respiratory Rate 18 18 16 Blood Pressure 123/88 91/72 L 109/89 Pulse Oximetry 99 100 98 Oxygen Delivery Oxygen Flow Rate 07/24/22 02:00 Temperature 36.0 C L Pulse Rate 73 Respiratory Rate 18 Blood Pressure 97/74 L Pulse Oximetry 99 Oxygen Delivery Oxygen Flow Rate Intake/Output Intake/Output: Intake & Output 07/21/22 07/22/22 07/23/22 07/24/22 23:59 23:59 23:59 23:59 Intake Total 390 182 213 5666 Output Total 900 1150 8600 7500 Balance -510 570 -8250 500 Meds/Results Medications: Active Medications Generic Name Dose Route Start Last Admin Trade Name Freq PRN Reason Stop Dose Admin Acetaminophen 650 mg 07/16/22 04:02 07/22/22 22:48 Acetaminophen 325 Mg Tablet PO 650 mg Q4H PRN Administration Mild Pain (1-3) or Fever Hydrocodone Bitart/Acetaminophen 1 tab 07/16/22 04:02 07/23/22 22:19 Hydrocodone/Acetaminophen (*Crx) 5-325 Mg Tablet PO 1 tab Q4H PRN Administration Moderate Pain (4-6) Al Hydrox/Mg Hydrox/Simethicone 30 ml 07/16/22 04:02 07/21/22 06:26 Mag Hydrox/Al Hydrox/Simeth 30 Ml Udc PO 30 ml QID PRN Administration Dyspepsia Bisacodyl 5 mg 07/16/22 04:02 Bisacodyl 5 Mg Tablet Ec PO DAILY PRN Constipation Dextrose 12.5 gm 07/16/22 03:47 Dextrose 50% 25 Gm/50 Ml Syringe IV PUSH PRN PRN Hypoglycemia Protocol Enoxaparin Sodium 40 mg 07/18/22 10:40 07/24/22 08:04 Enoxaparin 40 Mg/0.4 Ml Syringe
--- NOTE | 2022-07-24 09:59 | PM.IMPN ---
Progress Note: A&P Assessment and Plan (1) Prostatic abscess: Code(s): N41.2 - Abscess of prostate Status: Acute (2) Anemia: Qualifiers: Anemia type: unspecified type Qualified Code(s): D64.9 - Anemia, unspecified Code(s): D64.9 - Anemia, unspecified Status: Acute (3) Severe sepsis: Code(s): A41.9 - Sepsis, unspecified organism; R65.20 - Severe sepsis without septic shock Status: Acute (4) Hyponatremia: Code(s): E87.1 - Hypo-osmolality and hyponatremia Status: Acute Plan # prostate abscess # sepsis secondary to abscess -no history of prostate abscess, no history of urine infections, no trauma to prostate -antibiotics: Continue Levaquin -urology consulted Dr. Guzman -checking ESR CRP -trend leukocytosis -repeat labs tomorrow # anemia -unclear etiology of anemia, ordered labs for workup for take count, ferritin, iron panel, haptoglobin, TSH, transferrin, B12, folic acid, bilirubin -type and screen complete, will transfuse if hemoglobin less than 7 -no signs of bleeding # hyponatremia -patient appears to be clinically hypovolemic -checking serum possible couple urine also, urine sodium -continue LR # hypotension -central line placed right IJ, critical care consulted -keep map greater than 65, as needed levophed -patient's blood pressure may be chronically low, patient reports no history of hypotension -IV fluids continue LR at 125 cc/hour, patient given 3 L fluid bolus in the ED with no improvement of BP # poorly-controlled type 2 diabetes -patient will need diabetic Education -patient is emaciated from poorly controlled diabetes -hemoglobin A1c greater than 14 -home regimen is metformin, glipizide, 4 units Lantus nightly -will increase lantus to 10U nightly and adjusted accordingly Diet: Diabetic diet DVT prophylaxis: SCDs, hold chemoprophylaxis for anemia workup Code status: Full code Disposition: Medical course likely home in 3-5 days 07/24/2021 interval history: patient is [place] male with a prostate abscess seen by urologist and had the abscess drain on 07/16 upon arrival, was sent for culture, initial culture collected from abscess is growing Lactobacillus species, sensitivities is pending, being treated with levofloxacin, another culture was collected on 07/17 its growing yeast, patient was seen by his urologist and started patient on Diflucan, once we have sensitivity, will discharge home on IV abx for 2 weeks as recommended by urologist, on 07/23 urologist saw him examined him and recommended further evaluation with I and D, placing suprapubic catheter, and patient had the procedure, another culture was collected on 07/23 will follow up and plan. however patient white counts remain high will add flagyl to his abx regiment patient denies any abdominal pain nausea or vomiting fever or chills, on 07/18 I discussed with oncology navigator patient appears malnourished and chronically ill, concern patient may have sexually transmitted disease such as HIV, hepatitis, however HIV, hepatitis and TB are negative, on 07/19 patient hgb dropped to 6.8 and patient was given 2 units of PRBC, today patient hgb is 11.2 will do iron profile, patient denies any bleeding, will monitor, will follow-up Subjective Date/time seen: 07/24/22 09:59 07/24/2021 interval history: patient is [place] male with a prostate abscess seen by urologist and had the abscess drain on 07/16 upon arrival, was sent for culture, initial culture collected from abscess is growing Lactobacillus species, sensitivities is pending, being treated with levofloxacin, another culture was collected on 07/17 its growing yeast, patient was seen by his urologist and started patient on Diflucan, once we have sensitivity, will discharge home on IV abx for 2 weeks as recommended by urologist, on 07/23 urologist saw him examined him and recommended further evaluation with I and D, placing suprapubic catheter,
[2022-07-24] MEDS: metroNIDAZOLE 500 MG/ISO 100ML 500 MG/100 ML BAG 100 MG IVPB ×4 (10:37→23:23)
[2022-07-24 11:33] LABS: Glucose Point of Care 309 mg/dl (65-105)
[2022-07-24] MEDS: HYDROcodone/acetaminophen (*CRX) 5-325 MG TABLET 1 TAB PO ×2 (12:53→20:20)
--- NOTE | 2022-07-24 13:02 | IDPHARM ---
Subjective Pharmacy was consulted by Kelsie Andrade regarding infectious diseases for Lindsey Cohen. Lindsey Cohen is a 47 year old M with concerns regarding prostatic abscess. Background The patient is currently receiving Metronidazole IV, Levofloxacin, Fluconazole. The patient's PMH includes diabetes, and anemia, and presented with abdominal pain, dysuria, and pain. Recent Diabetes diagnosis requiring injectable therapy. Additionally, the patient was able to transition out of the ICU soon after arriving and underwent swabbing of discharge on 07/16 (lactobacillus spp.) and cystoscopy for abscess drainage (yeast spp.) on 07/17 and repeat on 07/23 (culture pending). Pt WBC was improving from ~18 to ~13, but has recently reached 21-23. Continue to follow. Assessment/Recommendation/Discussion Patient not improving/slowly improving per discussion with consulting provider and that this is a very severe abscess. Patient not improving despite drainage of abscess, perhaps improvement will begin with the interventions done on 07/23 and the CBI. Continue to follow. As fluconazole's yeast coverage is limited, even in the Carole genus, and the yeast spp. was the one isolated from the cystoscopy, switch fluconazole to micafungin. Follow for improvement. Can consider switching levofloxacin to some beta-lactam like ampicillin for additional lactobacillus coverage which can present with various resistances including, fluoroquinolones, beta-lactams, and especially vancomycin. Will follow up, but do not hesitate to reach out sooner if needed. Thank you for the interesting consult. Richar Powers, PharmD Infectious Disease/Antimicrobial Stewardship Pharmacist 07/24/22; [id number]
[2022-07-24 14:00] VITALS: BP 133/95; PULSE 81; RESP 16; TEMP 35.8; O2SAT 100
--- NOTE | 2022-07-24 14:45 | P.PNAN_ITS ---
Anes - Prog Note Post-Op Date/Time: 07/24/22 14:45 Cardiovascular status: normal Respiratory status: normal Airway patency: baseline Mental status: baseline Post-Op hydration status: normal Vital Signs: Last Vital Signs Temp 36.1 C L 07/24/22 06:00 Pulse 78 07/24/22 06:00 Resp 16 07/24/22 06:00 BP 109/89 07/24/22 06:00 Pulse Ox 98 07/24/22 06:00 O2 Del Method Room Air 07/23/22 21:30 O2 Flow Rate 10 07/23/22 20:42 Pain Score (VAS): 0 I/O: Intake & Output 07/23/22 07/24/22 07/24/22 23:59 07:59 15:59 Intake Total 250 8000 100 Output Total 7150 7500 250 Balance -6900 500 -150 Laboratory Tests 07/24/22 06:23 07/24/22 06:23 07/23/22 07/23/22 07/23/22 16:48 18:14 20:55 WBC RBC Hgb Hct MCV MCH MCHC RDW Plt Count MPV Sodium Potassium Chloride Carbon Dioxide Anion Gap BUN Creatinine Estim Creat Clear Calc Estimated GFR Glucose POC Capillary Glucose 109 H 104 99 Calcium Magnesium 07/24/22 07/24/22 07/24/22 06:23 06:23 07:50 WBC 23.8 H RBC 3.77 L Hgb 11.2 L Hct 34.2 L MCV 90.7 MCH 29.7 MCHC 32.7 RDW 13.9 Plt Count 690 H MPV 8.2 Sodium 134 L Potassium 4.4 Chloride 97 L Carbon Dioxide 29 Anion Gap 8 BUN 25 H Creatinine 0.70 Estim Creat Clear Calc 73 Estimated GFR > 60 Glucose 359 H POC Capillary Glucose 359 H Calcium 8.2 L Magnesium 1.5 L 07/24/22 11:29 WBC RBC Hgb Hct MCV MCH MCHC RDW Plt Count MPV Sodium Potassium Chloride Carbon Dioxide Anion Gap BUN Creatinine Estim Creat Clear Calc Estimated GFR Glucose POC Capillary Glucose 309 H Calcium Magnesium Post-procedural complaints: none Patient Feedback: Patient satisfied with anesthetic care. Pt does not speak cape verdean. His sister was at bedside to translate. Pt stated he feels much better.
[2022-07-24 16:29] LABS: Glucose Point of Care 219 mg/dl (65-105)
[2022-07-24] MEDS: MICAFUNGIN SODIUM 100 MG in SODIUM CHLORIDE 0.9% IV 100 ML IVPB (16:32)
[2022-07-24 19:47] LABS: Glucose Point of Care 247 mg/dl (65-105)
[2022-07-24] MEDS: levoFLOXacin 500 MG TABLET PO (20:13)
[2022-07-24 21:52] VITALS: BP 162/108; PULSE 74; RESP 16; TEMP 36.6; O2SAT 100
[2022-07-25] MEDS: CENTRAL LINE FLUSH 10 ML IV PUSH ×4 (01:28→23:23)
[2022-07-25] MEDS: HYDROcodone/acetaminophen (*CRX) 5-325 MG TABLET 1 TAB PO ×2 (02:33→11:39)
[2022-07-25] MEDS: metroNIDAZOLE 500 MG/ISO 100ML 500 MG/100 ML BAG 125 MG IVPB (05:10)
[2022-07-25 05:23] LABS: Hematocrit 33.9 % (42.0-52.0); Mean Corpuscular HGB Conc 32.4 g/dl (32-36); Mean Corpuscular Hemoglobin 30.1 pg (26-34); Mean Corpuscular Volume 92.9 fl (80-100); Mean Platelet Volume 8.1 fl (7.4-10.4); Platelet Count Result 662 k/mm3 (150-375); Red Blood Count 3.65 M/mm3 (4.6-6.20); Red Cell Distribution Width 13.4 % (11.5-14.5); White Blood Count 17.8 K/mm3 (4.5-10.0)
[2022-07-25 05:33] LABS: Anion Gap 4 mmol/L (8-16); Blood Urea Nitrogen 24 mg/dL (9-20); Calcium 7.9 mg/dL (8.4-10.2); Carbon Dioxide 33 mmol/L (22-30); Chloride 91 mmol/L (98-107); Estimated CRCL calculation 57 ml/min; Estimated Glomerular Filt Rate > 60; Glucose 265 mg/dL (65-110); Magnesium 1.3 mg/dL (1.6-2.3); Sodium 128 mmol/L (137-145)
[2022-07-25 05:46] VITALS: BP 120/88; PULSE 72; RESP 16; TEMP 36.2; O2SAT 100
[2022-07-25 07:42] LABS: Glucose Point of Care 214 mg/dl (65-105)
[2022-07-25] MEDS: ENOXAPARIN 40 MG/0.4 ML SYRINGE SUB-Q (09:54)
[2022-07-25] MEDS: metFORMIN HCL 500 MG TABLET 1000 MG PO (09:54)
[2022-07-25] MEDS: INSULIN ASPART (*BKC) 100 UNITS/ML SUB-Q ×2 (09:54→12:23)
[2022-07-25] MEDS: MIDODRINE HCL 10 MG TABLET PO ×3 (09:54→17:25)
[2022-07-25] MEDS: glipiZIDE 5 MG TABLET PO (09:54)
[2022-07-25] MEDS: MAGNESIUM SULFATE 3GM/D5W100ML 3 GM/100 ML BAG IVPB (09:54)
[2022-07-25] MEDS: INSULIN GLARGINE (*BKC) 100 UNITS/ML 22 UNITS SUB-Q (09:55)
[2022-07-25] MEDS: MICAFUNGIN SODIUM 100 MG in SODIUM CHLORIDE 0.9% IV 100 ML IVPB (10:03)
--- NOTE | 2022-07-25 10:05 | PCNFU ---
Nutrition Follow-Up Complete: Food and Nutrition Knowledge Deficit as related to newly dx DM as evidenced by HbA1c > 14% Goal:Adequate Intake of at least 75% of meals on diabetic diet. Pt is meeting current goal. Continue with same goal. Pt current nutrition is Diabetic consistent carb, glucerna shakes BID. Nutrition recommendation: Continue with current plan of care Last recorded weight is 39.6 kg - stable at this time. Bowel Motility: +BM 07/24 Labs Reviewed: Hgb:11, HCT:33.9, NA:128, BUN:24, Glu:265 Meds Noted: lantus, metformin Skin: WNL Additional Notes: Pt continues on a diabetic diet, intake 100% of meals. Glucerna shakes BID in place. Agree with diet orders. Will monitor every 7 days.
[2022-07-25 11:44] LABS: Glucose Point of Care 269 mg/dl (65-105)
--- NOTE | 2022-07-25 11:46 | PCOTNOTE ---
Attempted to see Patient at this time. Patient in bed, per RN, Patient had just returned from X-ray. Therapist spoke with Patients sister at this time as a hospitality intern. Patient verbalized, NO nothing right now, in pain, feel so bad . Patient verbalized, he is refusing all activity right now .
[2022-07-25] MEDS: metroNIDAZOLE 500 MG/ISO 100ML 500 MG/100 ML BAG 100 MG IVPB ×3 (12:23→23:26)
--- NOTE | 2022-07-25 12:58 | PM.IMPN ---
Progress Note: A&P Assessment and Plan (1) Prostatic abscess: Code(s): N41.2 - Abscess of prostate Status: Acute (2) Anemia: Qualifiers: Anemia type: unspecified type Qualified Code(s): D64.9 - Anemia, unspecified Code(s): D64.9 - Anemia, unspecified Status: Acute (3) Severe sepsis: Code(s): A41.9 - Sepsis, unspecified organism; R65.20 - Severe sepsis without septic shock Status: Acute (4) Hyponatremia: Code(s): E87.1 - Hypo-osmolality and hyponatremia Status: Acute Plan # prostate abscess # sepsis secondary to abscess -no history of prostate abscess, no history of urine infections, no trauma to prostate -antibiotics: Continue Levaquin -urology consulted Dr. Guzman -checking ESR CRP -trend leukocytosis -repeat labs tomorrow # anemia -unclear etiology of anemia, ordered labs for workup for take count, ferritin, iron panel, haptoglobin, TSH, transferrin, B12, folic acid, bilirubin -type and screen complete, will transfuse if hemoglobin less than 7 -no signs of bleeding # hyponatremia -patient appears to be clinically hypovolemic -checking serum possible couple urine also, urine sodium -continue LR # hypotension -central line placed right IJ, critical care consulted -keep map greater than 65, as needed levophed -patient's blood pressure may be chronically low, patient reports no history of hypotension -IV fluids continue LR at 125 cc/hour, patient given 3 L fluid bolus in the ED with no improvement of BP # poorly-controlled type 2 diabetes -patient will need diabetic Education -patient is emaciated from poorly controlled diabetes -hemoglobin A1c greater than 14 -home regimen is metformin, glipizide, 4 units Lantus nightly -will increase lantus to 10U nightly and adjusted accordingly Diet: Diabetic diet DVT prophylaxis: SCDs, hold chemoprophylaxis for anemia workup Code status: Full code Disposition: Medical course likely home in 3-5 days 07/25/2021 interval history: patient is [place] male with a prostate abscess seen by urologist and had the abscess drain on 07/16 upon arrival, was sent for culture, initial culture collected from abscess is growing Lactobacillus species, sensitivities is pending, being treated with levofloxacin, another culture was collected on 07/17 its growing yeast, patient was seen by his urologist and started patient on Diflucan, once we have sensitivity, will discharge home on IV abx for 2 weeks as recommended by urologist, on 07/23 urologist saw him examined him and recommended further evaluation with I and D, placing suprapubic catheter, and patient had the procedure, another culture was collected on 07/23 will follow up and plan. however patient white counts remained high added flagyl to his abx regiment and ID pharmcy replaced diflucan with micafungin, today there is improvement in patient white counts will continue to monitor, patient denies any abdominal pain nausea or vomiting fever or chills, on 07/18 I discussed with book agent patient appears malnourished and chronically ill, concern patient may have sexually transmitted disease such as HIV, hepatitis, however HIV, hepatitis and TB are negative, on 07/19 patient hgb dropped to 6.8 and patient was given 2 units of PRBC, today patient hgb is 11.0 will do iron profile, patient denies any bleeding, will monitor, will follow-up Subjective Date/time seen: 07/25/22 12:58 07/25/2021 interval history: patient is Indian male with a prostate abscess seen by urologist and had the abscess drain on 07/16 upon arrival, was sent for culture, initial culture collected from abscess is growing Lactobacillus species, sensitivities is pending, being treated with levofloxacin, another culture was collected on 07/17 its growing yeast, patient was seen by his urologist and started patient on Diflucan, once we have sensitivity, will discharge home on IV abx for 2 weeks as recommended by u
[2022-07-25 14:00] VITALS: BP 120/90; PULSE 85; RESP 16; TEMP 36.7; O2SAT 100
[2022-07-25] MEDS: MORPHINE SULFATE (*CRX) 4 MG/ML INJ IV PUSH ×3 (14:49→23:26)
--- NOTE | 2022-07-25 15:28 | PCPTNOTE ---
Patient declined PT this A.M.. PT will continue to follow per plan of care.
[2022-07-25 16:25] LABS: Glucose Point of Care 144 mg/dl (65-105)
[2022-07-25 19:30] LABS: Glucose Point of Care 133 mg/dl (65-105)
[2022-07-25] MEDS: levoFLOXacin 500 MG TABLET PO (20:15)
[2022-07-25 22:00] VITALS: BP 157/110; PULSE 72; RESP 18; TEMP 37.2; O2SAT 100
[2022-07-25 23:21] LABS: Glucose Point of Care 224 mg/dl (65-105)
[2022-07-26 05:41] LABS: Hematocrit 34.1 % (42.0-52.0); Hemoglobin 10.8 g/dL (14.0-18.0); Mean Corpuscular HGB Conc 31.7 g/dl (32-36); Mean Corpuscular Hemoglobin 29.8 pg (26-34); Mean Corpuscular Volume 93.9 fl (80-100); Mean Platelet Volume 8.3 fl (7.4-10.4); Platelet Count Result 664 k/mm3 (150-375); Red Blood Count 3.63 M/mm3 (4.6-6.20); Red Cell Distribution Width 13.7 % (11.5-14.5); White Blood Count 10.5 K/mm3 (4.5-10.0)
[2022-07-26 06:00] VITALS: BP 108/85; PULSE 78; RESP 16; TEMP 36.8; O2SAT 98
[2022-07-26 06:02] LABS: Anion Gap 2 mmol/L (8-16); Blood Urea Nitrogen 22 mg/dL (9-20); Calcium 8.1 mg/dL (8.4-10.2); Carbon Dioxide 36 mmol/L (22-30); Chloride 94 mmol/L (98-107); Estimated CRCL calculation 64 ml/min; Estimated Glomerular Filt Rate > 60; Glucose 155 mg/dL (65-110); Magnesium 1.5 mg/dL (1.6-2.3); Potassium 4.1 mmol/L (3.4-5.0); Sodium 132 mmol/L (137-145)
[2022-07-26] MEDS: metroNIDAZOLE 500 MG/ISO 100ML 500 MG/100 ML BAG 100 MG IVPB ×3 (06:03→16:59)
[2022-07-26] MEDS: CENTRAL LINE FLUSH 10 ML IV PUSH ×3 (06:04→22:21)
[2022-07-26] MEDS: INSULIN GLARGINE (*BKC) 100 UNITS/ML 22 UNITS SUB-Q (08:01)
[2022-07-26] MEDS: MICAFUNGIN SODIUM 100 MG in SODIUM CHLORIDE 0.9% IV 100 ML IVPB (08:01)
[2022-07-26] MEDS: glipiZIDE 5 MG TABLET PO (08:01)
[2022-07-26] MEDS: MIDODRINE HCL 10 MG TABLET PO ×2 (08:01→12:02)
[2022-07-26] MEDS: ENOXAPARIN 40 MG/0.4 ML SYRINGE SUB-Q (08:01)
[2022-07-26] MEDS: metFORMIN HCL 500 MG TABLET 1000 MG PO (08:01)
[2022-07-26] MEDS: MORPHINE SULFATE (*CRX) 4 MG/ML INJ IV PUSH ×4 (08:06→20:28)
[2022-07-26 08:10] LABS: Glucose Point of Care 101 mg/dl (65-105)
[2022-07-26] MEDS: MAGNESIUM SULFATE 3GM/D5W100ML 3 GM/100 ML BAG IVPB (09:02)
[2022-07-26] MEDS: HYDROcodone/acetaminophen (*CRX) 5-325 MG TABLET 1 TAB PO ×2 (10:09→14:25)
[2022-07-26 11:42] LABS: Glucose Point of Care 208 mg/dl (65-105)
--- NOTE | 2022-07-26 11:53 | PM.IMPN ---
Progress Note: A&P Assessment and Plan (1) Prostatic abscess: Code(s): N41.2 - Abscess of prostate Status: Acute (2) Anemia: Qualifiers: Anemia type: unspecified type Qualified Code(s): D64.9 - Anemia, unspecified Code(s): D64.9 - Anemia, unspecified Status: Acute (3) Severe sepsis: Code(s): A41.9 - Sepsis, unspecified organism; R65.20 - Severe sepsis without septic shock Status: Acute (4) Hyponatremia: Code(s): E87.1 - Hypo-osmolality and hyponatremia Status: Acute Plan # prostate abscess # sepsis secondary to abscess -no history of prostate abscess, no history of urine infections, no trauma to prostate -antibiotics: Continue Levaquin -urology consulted Dr. Guzman -checking ESR CRP -trend leukocytosis -repeat labs tomorrow # anemia -unclear etiology of anemia, ordered labs for workup for take count, ferritin, iron panel, haptoglobin, TSH, transferrin, B12, folic acid, bilirubin -type and screen complete, will transfuse if hemoglobin less than 7 -no signs of bleeding # hyponatremia -patient appears to be clinically hypovolemic -checking serum possible couple urine also, urine sodium -continue LR # hypotension -central line placed right IJ, critical care consulted -keep map greater than 65, as needed levophed -patient's blood pressure may be chronically low, patient reports no history of hypotension -IV fluids continue LR at 125 cc/hour, patient given 3 L fluid bolus in the ED with no improvement of BP # poorly-controlled type 2 diabetes -patient will need diabetic Education -patient is emaciated from poorly controlled diabetes -hemoglobin A1c greater than 14 -home regimen is metformin, glipizide, 4 units Lantus nightly -will increase lantus to 10U nightly and adjusted accordingly Diet: Diabetic diet DVT prophylaxis: SCDs, hold chemoprophylaxis for anemia workup Code status: Full code Disposition: Medical course likely home in 3-5 days 07/26/2021 interval history: patient is [place] male with a prostate abscess seen by urologist and had the abscess drain on 07/16 upon arrival, was sent for culture, initial culture collected from abscess is growing Lactobacillus species, sensitivities is pending, being treated with levofloxacin, another culture was collected on 07/17 its growing yeast, patient was seen by his urologist and started patient on Diflucan, once we have sensitivity, will discharge home on IV abx for 2 weeks as recommended by urologist, on 07/23 urologist saw him examined him and recommended further evaluation with I and D, placing suprapubic catheter, and patient had the procedure, another culture was collected on 07/23 however patient white counts remained high added flagyl to his abx regiment and [facility] pharmcy replaced diflucan with micafungin, there is improvement in patient white counts today to 10.5 from high of 23.8 patient abscess culture collected on 07/23 is continue to grow yeast-ilda albicans, will continue to monitor, patient denies any abdominal pain nausea or vomiting fever or chills, on 07/18 I discussed with mat machine tender patient appears malnourished and chronically ill, concern patient may have sexually transmitted disease such as HIV, hepatitis, however HIV, hepatitis and TB are negative, on 07/19 patient hgb dropped to 6.8 and patient was given 2 units of PRBC, today patient hgb is 10.8, iron profile showed low iron, will give venofer 300mg x2, will give vitamin b12 and folic acid, patient denies any bleeding, will monitor, will follow-up Subjective Date/time seen: 07/26/22 11:53 07/26/2021 interval history: patient is [place] male with a prostate abscess seen by urologist and had the abscess drain on 07/16 upon arrival, was sent for culture, initial culture collected from abscess is growing Lactobacillus species, sensitivities is pending, being treated with levofloxacin, another culture was collected on 07/17 its gr
[2022-07-26] MEDS: INSULIN ASPART (*BKC) 100 UNITS/ML SUB-Q (11:55)
--- NOTE | 2022-07-26 12:20 | WPDUROPN2 ---
Progress Note: A&P Assessment and Plan (1) Urethral diverticulum: Code(s): N36.1 - Urethral diverticulum Status: Acute Assessment and Plan: Will require long-term antibiotic/antifungal. Long-term bladder drainage with suprapubic tube (2) Diabetes mellitus: Code(s): E11.9 - Type 2 diabetes mellitus without complications Status: Acute Subjective Subjective Date/Time Seen: 07/26/22 12:20 He states he is feeling improved. Minimal discomfort. Tolerating his suprapubic tube Review of Systems Review of Systems: Suprapubic tube in place. Urine clear. Genital exam is much improved. Less swelling and erythema. The perineal mass is still palpated but is nontender. There is no overlying skin erythema Objective Data Vital Signs Vital Signs: Vital Signs - 24 hr 07/25/22 14:00 07/25/22 22:00 07/25/22 20:00 Temperature 98.1 F 98.9 F Pulse Rate 85 72 Respiratory Rate 16 18 Blood Pressure 120/90 157/110 H Pulse Oximetry 100 100 Oxygen Delivery Room Air 07/26/22 06:00 07/26/22 08:00 Temperature 98.3 F Pulse Rate 78 Respiratory Rate 16 Blood Pressure 108/85 Pulse Oximetry 98 Oxygen Delivery Room Air Intake/Output Intake/Output: Intake & Output 07/23/22 07/24/22 07/25/22 07/26/22 23:59 23:59 23:59 23:59 Intake Total 350 2090 3635 440 Output Total 8600 1150 2650 1300 Balance -8250 940 985 -860 Meds/Results Medications: Active Medications Generic Name Dose Route Start Last Admin Trade Name Freq PRN Reason Stop Dose Admin Acetaminophen 650 mg 07/16/22 04:02 07/22/22 22:48 Acetaminophen 325 Mg Tablet PO 650 mg Q4H PRN Administration Mild Pain (1-3) or Fever Hydrocodone Bitart/Acetaminophen 1 tab 07/16/22 04:02 07/26/22 10:09 Hydrocodone/Acetaminophen (*Crx) 5-325 Mg Tablet PO 1 tab Q4H PRN Administration Moderate Pain (4-6) Al Hydrox/Mg Hydrox/Simethicone 30 ml 07/16/22 04:02 07/21/22 06:26 Mag Hydrox/Al Hydrox/Simeth 30 Ml Udc PO 30 ml QID PRN Administration Dyspepsia Bisacodyl 5 mg 07/16/22 04:02 Bisacodyl 5 Mg Tablet Ec PO DAILY PRN Constipation Dextrose 12.5 gm 07/16/22 03:47 Dextrose 50% 25 Gm/50 Ml Syringe IV PUSH PRN PRN Hypoglycemia Protocol Enoxaparin Sodium 40 mg 07/18/22 10:40 07/26/22 08:01 Enoxaparin 40 Mg/0.4 Ml Syringe SUB-Q 40 mg DAILY NAHEED Administration Fentanyl Citrate 12.5 mcg 07/17/22 14:42 Fentanyl Citrate Inj (*Crx) 100 Mcg/2 Ml Vial IV PUSH Q2M PRN Pain Fentanyl Citrate 25 mcg 07/23/22 19:48 Fentanyl Citrate Inj (*Crx) 100 Mcg/2 Ml Vial IV PUSH Q2M PRN Pain Glipizide 5 mg 07/20/22 09:00 07/26/22 08:01 Glipizide 5 Mg Tablet PO 5 mg DAILY NAHEED Administration Glucagon 1 mg 07/16/22 03:47 Glucagon For Inj 1 Mg Vial IM PRN PRN Hypoglycemia Protocol Glucose 15 gm 07/16/22 03:47 Glucose Oral Gel 15 Gm Of Glucse In 37.5 Gm Tube PO PRN PRN Hypoglycemia Protocol Dextrose 1,000 mls @ 100 mls/hr 07/16/22 03:47 Dextrose 5% 1,000 Ml IVPB PRN PRN Hypoglycemia Protocol Metronidazole 500 mg in 100 mls @ 100 mls/hr 07/24/22 08:00 07/26/22 11:55 Flagyl 500 Mg/Iso Soln 100 Ml IVPB 100 mls/hr Q6HR NAHEED Administration Micafungin Sodium 100 mg/ 100 mls @ 100 mls/hr 07/24/22 14:00 07/26/22 08:01 Sodium Chloride IVPB 100 mls/hr DAILY NAHEED Administration Iron Sucrose 300 mg/ Sodium 115 mls @ 76.667 mls/hr 07/26/22 14:00 Chloride IVPB 07/26/22 15:29 ONCE ONE Insulin Aspart 3 - 6 units 07/16/22 08:00 07/26/22 11:55 Insulin Aspart (*Bkc) 100 Units/Ml SUB-Q 3 units TIDWM NAHEED Administration Protocol Insulin Glargine 22 units 07/24/22 09:00 07/26/22 08:01 Insulin Glargine (*Bkc) 100 Units/Ml SUB-Q 22 units DAILY NAHEED Administration Levofloxacin 500 mg 07/22/22 21:00 07/25/22 20:15 Levoflox
[2022-07-26 14:00] VITALS: BP 170/60; PULSE 87; RESP 20; TEMP 36; O2SAT 100
[2022-07-26 16:42] LABS: Glucose Point of Care 145 mg/dl (65-105)
[2022-07-26] MEDS: levoFLOXacin 500 MG TABLET PO (20:29)
[2022-07-26 21:11] LABS: Glucose Point of Care 188 mg/dl (65-105)
[2022-07-26 22:00] VITALS: BP 145/97; PULSE 75; RESP 16; TEMP 36.7; O2SAT 99
[2022-07-26 22:04] VITALS: O2SAT 99
[2022-07-27] MEDS: MORPHINE SULFATE (*CRX) 4 MG/ML INJ IV PUSH ×6 (01:06→20:44)
[2022-07-27] MEDS: metroNIDAZOLE 500 MG/ISO 100ML 500 MG/100 ML BAG 125 MG IVPB ×4 (01:06→17:13)
[2022-07-27 03:20] LABS: Hematocrit 32.2 % (42.0-52.0); Hemoglobin 10.2 g/dL (14.0-18.0); Mean Corpuscular HGB Conc 31.7 g/dl (32-36); Mean Corpuscular Hemoglobin 30.1 pg (26-34); Mean Platelet Volume 8.2 fl (7.4-10.4); Platelet Count Result 649 k/mm3 (150-375); Red Blood Count 3.39 M/mm3 (4.6-6.20); Red Cell Distribution Width 13.8 % (11.5-14.5); White Blood Count 7.6 K/mm3 (4.5-10.0)
[2022-07-27 03:30] LABS: Anion Gap 4 mmol/L (8-16); Blood Urea Nitrogen 19 mg/dL (9-20); Calcium 7.9 mg/dL (8.4-10.2); Carbon Dioxide 34 mmol/L (22-30); Chloride 95 mmol/L (98-107); Estimated CRCL calculation 57 ml/min; Estimated Glomerular Filt Rate > 60; Glucose 210 mg/dL (65-110); Magnesium 1.7 mg/dL (1.6-2.3); Potassium 4.4 mmol/L (3.4-5.0); Sodium 133 mmol/L (137-145)
[2022-07-27] MEDS: CENTRAL LINE FLUSH 10 ML IV PUSH ×3 (05:05→20:44)
[2022-07-27 06:00] VITALS: BP 85/67; PULSE 79; RESP 16; TEMP 36.8; O2SAT 100
[2022-07-27 07:56] LABS: Glucose Point of Care 149 mg/dl (65-105)
[2022-07-27] MEDS: metFORMIN HCL 500 MG TABLET 1000 MG PO (08:04)
[2022-07-27] MEDS: ENOXAPARIN 40 MG/0.4 ML SYRINGE SUB-Q (08:04)
[2022-07-27] MEDS: glipiZIDE 5 MG TABLET PO (08:04)
[2022-07-27] MEDS: MIDODRINE HCL 10 MG TABLET PO ×3 (08:04→16:38)
[2022-07-27] MEDS: INSULIN GLARGINE (*BKC) 100 UNITS/ML 22 UNITS SUB-Q (08:05)
[2022-07-27] MEDS: MICAFUNGIN SODIUM 100 MG in SODIUM CHLORIDE 0.9% IV 100 ML IVPB (08:05)
[2022-07-27 11:58] LABS: Glucose Point of Care 150 mg/dl (65-105)
[2022-07-27] MEDS: HYDROcodone/acetaminophen (*CRX) 5-325 MG TABLET 1 TAB PO (11:58)
[2022-07-27 12:40] VITALS: BP 130/88
[2022-07-27 14:00] VITALS: BP 127/91; PULSE 81; RESP 18; TEMP 37; O2SAT 96
--- NOTE | 2022-07-27 14:06 | PM.IMPN ---
Progress Note: A&P Assessment and Plan (1) Prostatic abscess: Code(s): N41.2 - Abscess of prostate Status: Acute (2) Anemia: Qualifiers: Anemia type: unspecified type Qualified Code(s): D64.9 - Anemia, unspecified Code(s): D64.9 - Anemia, unspecified Status: Acute (3) Severe sepsis: Code(s): A41.9 - Sepsis, unspecified organism; R65.20 - Severe sepsis without septic shock Status: Acute (4) Hyponatremia: Code(s): E87.1 - Hypo-osmolality and hyponatremia Status: Acute Plan # prostate abscess status post drainage on 07/16/2022. Culture growing lactobacillus bases treated with levofloxacin. Another culture collected on 07/17 growing yeast. Started on Diflucan. 07/23 further I and D and placement of suprapubic catheter. WBC count normalized today. Flagyl was added on 07/23/2022. Diflucan switched to micafungin for Carole albicans HIV hepatitis B and tuberculosis test are negative Treponema pallidum test negative # sepsis secondary to abscess -no history of prostate abscess, no history of urine infections, no trauma to prostate -antibiotics: Continue Levaquin -urology consulted Dr. Guzman Suprapubic catheter placement for your retention of urine impressions of urethral diverticulum cystogram with extravasation of contrast from the urethra at the bulbar urethra. Suprapubic catheter placed # anemia -unclear etiology of anemia, ordered labs for workup for take count, ferritin, iron panel, haptoglobin, TSH, transferrin, B12, folic acid, bilirubin -type and screen complete, will transfuse if hemoglobin less than 7 -no signs of bleeding Transfuse 2 unit of PRBC on 07/19/2022 Also received IV Venofer # hyponatremia -patient appears to be clinically hypovolemic -checking serum possible couple urine also, urine sodium -continue LR # hypotension -central line placed right IJ, critical care consulted -keep map greater than 65, as needed levophed -patient's blood pressure may be chronically low, patient reports no history of hypotension -IV fluids continue LR at 125 cc/hour, patient given 3 L fluid bolus in the ED with no improvement of BP On midodrine currently # poorly-controlled type 2 diabetes -patient will need diabetic Education -patient is emaciated from poorly controlled diabetes -hemoglobin A1c greater than 14 -home regimen is metformin, glipizide, 4 units Lantus nightly -current Lantus 22 units metformin 1000 daily along with glipizide 5 mg daily Diet: Diabetic diet DVT prophylaxis: Lovenox Code status: Full code Subjective Date/time seen: 07/27/22 14:06 Interval history: History limited due to language. Denies any ongoing issue. Suprapubic catheter in place. No fever chills. No abdominal pain nausea vomiting. Review of Systems Review of Systems: All systems reviewed & are unremarkable except as noted in HPI and below Exam Narrative: appears chronically ill and cachectic Patient is comfortable, NAD HEENT: eyes are clear and none icteric LUNGS: normal respiratory effort ABD: not distended dressing in place with suprapubic catheter which is draining clear urine Lower extremities: no edema cyanosis or clubbing SKIN: nonjaundiced Neuro: grossly intact. Alert and oriented x3 Objective Data Vital Signs Vital Signs: Vital Signs - 24 hr 07/26/22 20:29 07/26/22 22:00 07/26/22 22:04 Temperature 98.1 F Pulse Rate 75 Respiratory Rate 16 Blood Pressure 145/97 H Pulse Oximetry 99 99 Oxygen Delivery Room Air Room Air 07/27/22 06:00 07/27/22 08:00 07/27/22 12:40 Temperature 98.2 F Pulse Rate 79 Respiratory Rate 16 Blood Pressure 85/67 L 130/88 Pulse Oximetry 100 Oxygen Delivery Room Air Intake/Output Intake/Output: Intake & Output 07/24/22 07/25/22 07/26/22 07/27/22 23:59 23:59 23:59 23:59 Intake Total 2090 3635 1340 660 Output Total 1150 2650 2300 1475 Balance 940 985 -960 -815 Meds/
[2022-07-27 16:27] LABS: Glucose Point of Care 139 mg/dl (65-105)
[2022-07-27] MEDS: levoFLOXacin 500 MG TABLET PO (20:44)
[2022-07-27 21:20] LABS: Glucose Point of Care 132 mg/dl (65-105)
[2022-07-27 21:44] VITALS: BP 135/89; PULSE 78; RESP 16; TEMP 36.8; O2SAT 99
[2022-07-27] MEDS: metroNIDAZOLE 500 MG/ISO 100ML 500 MG/100 ML BAG 100 MG IVPB (23:25)
[2022-07-28] MEDS: metroNIDAZOLE 500 MG/ISO 100ML 500 MG/100 ML BAG 100 MG IVPB ×4 (05:29→22:49)
[2022-07-28] MEDS: MORPHINE SULFATE (*CRX) 4 MG/ML INJ IV PUSH ×6 (05:31→22:48)
[2022-07-28] MEDS: CENTRAL LINE FLUSH 20 ML IV PUSH (05:33)
[2022-07-28] MEDS: CENTRAL LINE FLUSH 10 ML IV PUSH ×3 (05:33→22:56)
[2022-07-28 05:41] LABS: Hemoglobin 10.6 g/dL (14.0-18.0); Mean Corpuscular HGB Conc 31.2 g/dl (32-36); Mean Corpuscular Hemoglobin 29.7 pg (26-34); Mean Corpuscular Volume 95.2 fl (80-100); Mean Platelet Volume 8.2 fl (7.4-10.4); Platelet Count Result 756 k/mm3 (150-375); Red Blood Count 3.57 M/mm3 (4.6-6.20); Red Cell Distribution Width 13.8 % (11.5-14.5); White Blood Count 11.2 K/mm3 (4.5-10.0)
[2022-07-28 05:52] LABS: Anion Gap 2 mmol/L (8-16); Blood Urea Nitrogen 25 mg/dL (9-20); Calcium 8.2 mg/dL (8.4-10.2); Carbon Dioxide 32 mmol/L (22-30); Chloride 98 mmol/L (98-107); Estimated CRCL calculation 63 ml/min; Estimated Glomerular Filt Rate > 60; Glucose 91 mg/dL (65-110); Magnesium 1.5 mg/dL (1.6-2.3); Potassium 4.2 mmol/L (3.4-5.0); Sodium 132 mmol/L (137-145)
[2022-07-28 06:00] VITALS: BP 84/63; PULSE 86; RESP 16; TEMP 36.6; O2SAT 100
[2022-07-28] MEDS: MAGNESIUM SULF 2 GM/WATER 50ML 2 GM/50 ML BAG IVPB (08:12)
[2022-07-28] MEDS: MICAFUNGIN SODIUM 100 MG in SODIUM CHLORIDE 0.9% IV 100 ML IVPB (08:12)
[2022-07-28] MEDS: MIDODRINE HCL 10 MG TABLET PO ×3 (08:13→23:13)
[2022-07-28] MEDS: glipiZIDE 5 MG TABLET PO (08:13)
[2022-07-28] MEDS: ENOXAPARIN 40 MG/0.4 ML SYRINGE SUB-Q (08:13)
[2022-07-28] MEDS: metFORMIN HCL 500 MG TABLET 1000 MG PO (08:13)
[2022-07-28] MEDS: INSULIN GLARGINE (*BKC) 100 UNITS/ML 22 UNITS SUB-Q (08:14)
[2022-07-28 08:15] LABS: Glucose Point of Care 76 mg/dl (65-105)
[2022-07-28 09:07] LABS: Glucose Point of Care 128 mg/dl (65-105)
[2022-07-28 11:44] LABS: Glucose Point of Care 91 mg/dl (65-105)
--- NOTE | 2022-07-28 13:47 | PM.IMPN ---
Progress Note: A&P Assessment and Plan (1) Prostatic abscess: Code(s): N41.2 - Abscess of prostate Status: Acute (2) Anemia: Qualifiers: Anemia type: unspecified type Qualified Code(s): D64.9 - Anemia, unspecified Code(s): D64.9 - Anemia, unspecified Status: Acute (3) Severe sepsis: Code(s): A41.9 - Sepsis, unspecified organism; R65.20 - Severe sepsis without septic shock Status: Acute (4) Hyponatremia: Code(s): E87.1 - Hypo-osmolality and hyponatremia Status: Acute Plan # prostate abscess status post drainage on 07/16/2022. Culture growing lactobacillus bases treated with levofloxacin. Another culture collected on 07/17 growing yeast. Started on Diflucan. 07/23 further I and D and placement of suprapubic catheter. WBC count normalized today. Flagyl was added on 07/23/2022. Diflucan switched to micafungin for Carole albicans HIV hepatitis B and tuberculosis test are negative Treponema pallidum test negative On Levaquin till 08/14/2022 # sepsis secondary to abscess -no history of prostate abscess, no history of urine infections, no trauma to prostate -antibiotics: Continue Levaquin -urology consulted Dr. Guzman Suprapubic catheter placement for your retention of urine impressions of urethral diverticulum cystogram with extravasation of contrast from the urethra at the bulbar urethra. Suprapubic catheter placed # anemia -unclear etiology of anemia, ordered labs for workup for take count, ferritin, iron panel, haptoglobin, TSH, transferrin, B12, folic acid, bilirubin -type and screen complete, will transfuse if hemoglobin less than 7 -no signs of bleeding Transfuse 2 unit of PRBC on 07/19/2022 Also received IV Venofer # hyponatremia Improved # hypotension -central line placed right IJ, critical care consulted -keep map greater than 65, as needed levophed -patient's blood pressure may be chronically low, patient reports no history of hypotension -IV fluids continue LR at 125 cc/hour, patient given 3 L fluid bolus in the ED with no improvement of BP On midodrine currently # poorly-controlled type 2 diabetes -patient will need diabetic Education -patient is emaciated from poorly controlled diabetes -hemoglobin A1c greater than 14 -home regimen is metformin, glipizide, 4 units Lantus nightly -current Lantus 22 units metformin 1000 daily along with glipizide 5 mg daily Diet: Diabetic diet DVT prophylaxis: Lovenox Code status: Full code Subjective Date/time seen: 07/28/22 13:47 Interval history: no overnight events. Reports hurting in his genitals. Remains afebrile. Blood pressure fluctuating. Labs reviewed. Review of Systems Review of Systems: All systems reviewed & are unremarkable except as noted in HPI and below Exam Narrative: appears chronically ill and cachectic Patient is comfortable, NAD HEENT: eyes are clear and none icteric LUNGS: normal respiratory effort ABD: not distended dressing in place with suprapubic catheter which is draining clear urine Lower extremities: no edema cyanosis or clubbing SKIN: nonjaundiced Neuro: grossly intact. Alert and oriented x3 Objective Data Vital Signs Vital Signs: Vital Signs - 24 hr 07/27/22 14:00 07/27/22 21:44 07/27/22 20:00 Temperature 98.6 F 98.3 F Pulse Rate 81 78 Respiratory Rate 18 16 Blood Pressure 127/91 H 135/89 Pulse Oximetry 96 99 Oxygen Delivery Room Air 07/28/22 06:00 07/28/22 08:25 Temperature 97.8 F Pulse Rate 86 Respiratory Rate 16 Blood Pressure 84/63 L Pulse Oximetry 100 Oxygen Delivery Room Air Intake/Output Intake/Output: Intake & Output 07/25/22 07/26/22 07/27/22 07/28/22 23:59 23:59 23:59 23:59 Intake Total 3635 1340 1340 990 Output Total 2650 2300 2075 1900 Balance 985 -960 -735 -910 Meds/Results Medications: Active Medications Generic Name Dose Route Start Last Admin Trade Name Freq PRN Reason Stop D
[2022-07-28 14:00] VITALS: BP 182/94; PULSE 76; RESP 20; TEMP 36.9; O2SAT 100
[2022-07-28 16:58] LABS: Glucose Point of Care 52 mg/dl (65-105)
[2022-07-28] MEDS: GLUCOSE ORAL GEL 15 GM OF GLUCSE IN 37.5 GM TUBE PO (17:28)
[2022-07-28 17:33] LABS: Glucose Point of Care 61 mg/dl (65-105)
[2022-07-28 17:49] LABS: Glucose Point of Care 104 mg/dl (65-105)
[2022-07-28 20:00] VITALS: PULSE 97; RESP 18; O2SAT 98
[2022-07-28 21:03] LABS: Glucose Point of Care 302 mg/dl (65-105)
[2022-07-28 22:00] VITALS: BP 97/69; PULSE 97; RESP 18; TEMP 36.9; O2SAT 98
[2022-07-28] MEDS: levoFLOXacin 500 MG TABLET PO (22:48)
[2022-07-29] MEDS: MORPHINE SULFATE (*CRX) 4 MG/ML INJ IV PUSH ×2 (03:31→20:42)
[2022-07-29] MEDS: metroNIDAZOLE 500 MG/ISO 100ML 500 MG/100 ML BAG 100 MG IVPB ×3 (05:28→18:01)
[2022-07-29] MEDS: CENTRAL LINE FLUSH 20 ML IV PUSH (05:30)
[2022-07-29] MEDS: CENTRAL LINE FLUSH 10 ML IV PUSH ×2 (05:30→12:58)
[2022-07-29] MEDS: MIDODRINE HCL 10 MG TABLET PO ×2 (05:31→12:58)
[2022-07-29 05:54] LABS: Anion Gap 3 mmol/L (8-16); Blood Urea Nitrogen 22 mg/dL (9-20); Calcium 7.8 mg/dL (8.4-10.2); Carbon Dioxide 33 mmol/L (22-30); Chloride 95 mmol/L (98-107); Estimated CRCL calculation 62 ml/min; Estimated Glomerular Filt Rate > 60; Glucose 208 mg/dL (65-110); Magnesium 1.6 mg/dL (1.6-2.3); Potassium 4.4 mmol/L (3.4-5.0); Sodium 131 mmol/L (137-145)
[2022-07-29 06:00] VITALS: BP 137/93; PULSE 81; RESP 18; TEMP 36.7; O2SAT 99
[2022-07-29 06:06] LABS: Hematocrit 31.1 % (42.0-52.0); Hemoglobin 9.8 g/dL (14.0-18.0); Mean Corpuscular HGB Conc 31.5 g/dl (32-36); Mean Corpuscular Hemoglobin 29.7 pg (26-34); Mean Corpuscular Volume 94.2 fl (80-100); Mean Platelet Volume 8.2 fl (7.4-10.4); Platelet Count Result 798 k/mm3 (150-375); Red Cell Distribution Width 14.1 % (11.5-14.5); White Blood Count 12.9 K/mm3 (4.5-10.0)
[2022-07-29 06:50] LABS: Glucose Point of Care 217 mg/dl (65-105)
[2022-07-29 07:53] LABS: Glucose Point of Care 176 mg/dl (65-105)
[2022-07-29 08:00] VITALS: PULSE 81; RESP 18; O2SAT 99
[2022-07-29] MEDS: INSULIN GLARGINE (*BKC) 100 UNITS/ML 22 UNITS SUB-Q (09:22)
[2022-07-29] MEDS: MICAFUNGIN SODIUM 100 MG in SODIUM CHLORIDE 0.9% IV 100 ML IVPB (09:22)
[2022-07-29] MEDS: metFORMIN HCL 500 MG TABLET 1000 MG PO (09:22)
[2022-07-29] MEDS: ENOXAPARIN 40 MG/0.4 ML SYRINGE SUB-Q (09:22)
[2022-07-29] MEDS: glipiZIDE 5 MG TABLET PO (09:22)
--- NOTE | 2022-07-29 10:36 | PM.IMPN ---
Progress Note: A&P Assessment and Plan (1) Prostatic abscess: Code(s): N41.2 - Abscess of prostate Status: Acute (2) Anemia: Qualifiers: Anemia type: unspecified type Qualified Code(s): D64.9 - Anemia, unspecified Code(s): D64.9 - Anemia, unspecified Status: Acute (3) Severe sepsis: Code(s): A41.9 - Sepsis, unspecified organism; R65.20 - Severe sepsis without septic shock Status: Acute (4) Hyponatremia: Code(s): E87.1 - Hypo-osmolality and hyponatremia Status: Acute Plan interval history: prostate abscess status post drainage on 07/16/2022. Culture growing lactobacillus bases treated with levofloxacin. Another culture collected on 07/17 growing yeast. Started on Diflucan. 07/23 further I and D and placement of suprapubic catheter. WBC count normalized today. Flagyl was added on 07/23/2022. Diflucan switched to micafungin for Carole albicans, patient clinicall symptoms have improved he is stable, will discuss with [facility] pharmacy regarding IV abx and duration of abx, patient will be seen his urologist and further recommendation to follow. HIV hepatitis B and tuberculosis test are negative Treponema pallidum test negative On Levaquin till 08/14/2022 # sepsis secondary to abscess -no history of prostate abscess, no history of urine infections, no trauma to prostate -antibiotics: Continue Levaquin -urology consulted Dr. Guzman Suprapubic catheter placement for your retention of urine impressions of urethral diverticulum cystogram with extravasation of contrast from the urethra at the bulbar urethra. Suprapubic catheter placed # anemia -unclear etiology of anemia, ordered labs for workup for take count, ferritin, iron panel, haptoglobin, TSH, transferrin, B12, folic acid, bilirubin -type and screen complete, will transfuse if hemoglobin less than 7 -no signs of bleeding Transfuse 2 unit of PRBC on 07/19/2022 Also received IV Venofer # hyponatremia Improved # hypotension -central line placed right IJ, critical care consulted -keep map greater than 65, as needed levophed -patient's blood pressure may be chronically low, patient reports no history of hypotension -IV fluids continue LR at 125 cc/hour, patient given 3 L fluid bolus in the ED with no improvement of BP On midodrine currently # poorly-controlled type 2 diabetes -patient will need diabetic Education -patient is emaciated from poorly controlled diabetes -hemoglobin A1c greater than 14 -home regimen is metformin, glipizide, 4 units Lantus nightly -current Lantus 22 units metformin 1000 daily along with glipizide 5 mg daily Diet: Diabetic diet DVT prophylaxis: Lovenox Code status: Full code Subjective Date/time seen: 07/29/22 10:36 Interval history: no overnight events. Reports hurting in his genitals. Remains afebrile. Blood pressure fluctuating. Labs reviewed. interval history: prostate abscess status post drainage on 07/16/2022. Culture growing lactobacillus bases treated with levofloxacin. Another culture collected on 07/17 growing yeast. Started on Diflucan. 07/23 further I and D and placement of suprapubic catheter. WBC count normalized today. Flagyl was added on 07/23/2022. Diflucan switched to micafungin for Carole albicans, patient clinicall symptoms have improved he is stable, will discuss with [facility] pharmacy regarding IV abx and duration of abx, patient will be seen his urologist and further recommendation to follow. Exam Narrative: appears chronically ill and cachectic Patient is comfortable, NAD HEENT: eyes are clear and none icteric LUNGS: normal respiratory effort ABD: not distended dressing in place with suprapubic catheter which is draining clear urine Lower extremities: no edema cyanosis or clubbing SKIN: nonjaundiced Neuro: grossly intact. Alert and oriented x3 Objective Data Vital Signs Vital Signs: Vital Signs - 24 hr
--- NOTE | 2022-07-29 10:38 | PCPTNOTE ---
Patient declined PT at this time. Reports pain medication makes him sleepy. Requests PT later today.
[2022-07-29 11:46] LABS: Glucose Point of Care 117 mg/dl (65-105)
[2022-07-29 11:53] VITALS: O2SAT 98
[2022-07-29 14:00] VITALS: BP 116/87; PULSE 88; RESP 18; TEMP 36.6; O2SAT 100
[2022-07-29] MEDS: HYDROcodone/acetaminophen (*CRX) 5-325 MG TABLET 1 TAB PO (16:07)
[2022-07-29 16:18] LABS: Glucose Point of Care 74 mg/dl (65-105)
[2022-07-29] MEDS: levoFLOXacin 500 MG TABLET PO (20:42)
[2022-07-29 21:00] LABS: Glucose Point of Care 245 mg/dl (65-105)
[2022-07-29 22:00] VITALS: BP 104/78; PULSE 88; RESP 16; TEMP 36.6; O2SAT 100
[2022-07-30] MEDS: MIDODRINE HCL 10 MG TABLET PO ×4 (00:48→21:00)
[2022-07-30] MEDS: CENTRAL LINE FLUSH 10 ML IV PUSH ×4 (00:48→21:00)
[2022-07-30] MEDS: metroNIDAZOLE 500 MG/ISO 100ML 500 MG/100 ML BAG 100 MG IVPB ×2 (00:48→04:41)
[2022-07-30] MEDS: MORPHINE SULFATE (*CRX) 4 MG/ML INJ IV PUSH ×2 (00:49→04:42)
[2022-07-30] MEDS: CENTRAL LINE FLUSH 20 ML IV PUSH (04:42)
[2022-07-30 05:04] LABS: Hematocrit 32.4 % (42.0-52.0); Hemoglobin 10.2 g/dL (14.0-18.0); Mean Corpuscular HGB Conc 31.5 g/dl (32-36); Mean Corpuscular Hemoglobin 29.6 pg (26-34); Mean Corpuscular Volume 93.9 fl (80-100); Mean Platelet Volume 8.1 fl (7.4-10.4); Platelet Count Result 874 k/mm3 (150-375); Red Blood Count 3.45 M/mm3 (4.6-6.20); Red Cell Distribution Width 14.2 % (11.5-14.5); White Blood Count 12.2 K/mm3 (4.5-10.0)
[2022-07-30 05:32] LABS: Anion Gap 5 mmol/L (8-16); Blood Urea Nitrogen 22 mg/dL (9-20); Calcium 8.3 mg/dL (8.4-10.2); Carbon Dioxide 31 mmol/L (22-30); Chloride 96 mmol/L (98-107); Estimated CRCL calculation 65 ml/min; Estimated Glomerular Filt Rate > 60; Glucose 52 mg/dL (65-110); Magnesium 1.6 mg/dL (1.6-2.3); Potassium 3.9 mmol/L (3.4-5.0); Sodium 132 mmol/L (137-145)
[2022-07-30 06:00] VITALS: BP 119/85; PULSE 79; RESP 16; TEMP 36.3; O2SAT 100
[2022-07-30] MEDS: DEXTROSE 50% 25 GM/50 ML SYRINGE IV PUSH (06:40)
[2022-07-30 07:37] LABS: Glucose Point of Care 196 mg/dl (65-105)
--- NOTE | 2022-07-30 07:59 | WPDUROPN2 ---
Progress Note: A&P Assessment and Plan (1) Urethral diverticulum: Code(s): N36.1 - Urethral diverticulum Status: Acute Assessment and Plan: Clinically improving however urine appears cloudy in nature. Will obtain culture from suprapubic tube. Will have suprapubic tube irrigated manually to see if we can get it clear. Will discuss antibiotics with ID pharmacy. Will need outpatient follow-up with a reconstructive urologist Subjective Subjective Date/Time Seen: 07/30/22 07:59 Principal diagnosis: Periurethral diverticulum with abscess Interval history: Clinically feels better however his white count is slightly elevated over the past couple days and his urine appears cloudy in nature Review of Systems Review of Systems: All systems reviewed & are unremarkable except as noted in HPI and below Exam Const: General: cooperative and comfortable GI: Inspection: normal to inspection : Penis: Yes other (Edema has decreased. Decreased tenderness) Scrotum: scrotum normal Objective Data Vital Signs Vital Signs: Vital Signs - 24 hr 07/29/22 08:00 07/29/22 11:53 07/29/22 14:00 Temperature 36.6 C Pulse Rate 81 88 Respiratory Rate 18 18 Blood Pressure 116/87 Pulse Oximetry 99 98 100 Oxygen Delivery Room Air Room Air 07/29/22 22:00 07/29/22 20:00 Temperature 36.6 C Pulse Rate 88 Respiratory Rate 16 Blood Pressure 104/78 Pulse Oximetry 100 Oxygen Delivery Room Air Intake/Output Intake/Output: Intake & Output 07/27/22 07/28/22 07/29/22 07/30/22 23:59 23:59 23:59 23:59 Intake Total 1340 2550 1870 100 Output Total 2075 3250 3575 Balance -73700 -1708 100 Meds/Results Medications: Active Medications Generic Name Dose Route Start Last Admin Trade Name Freq PRN Reason Stop Dose Admin Acetaminophen 650 mg 07/16/22 04:02 07/22/22 22:48 Acetaminophen 325 Mg Tablet PO 650 mg Q4H PRN Administration Mild Pain (1-3) or Fever Hydrocodone Bitart/Acetaminophen 1 tab 07/16/22 04:02 07/29/22 16:07 Hydrocodone/Acetaminophen (*Crx) 5-325 Mg Tablet PO 1 tab Q4H PRN Administration Moderate Pain (4-6) Al Hydrox/Mg Hydrox/Simethicone 30 ml 07/16/22 04:02 07/21/22 06:26 Mag Hydrox/Al Hydrox/Simeth 30 Ml Udc PO 30 ml QID PRN Administration Dyspepsia Bisacodyl 5 mg 07/16/22 04:02 Bisacodyl 5 Mg Tablet Ec PO DAILY PRN Constipation Dextrose 25 gm 07/30/22 05:45 07/30/22 06:40 Dextrose 50% 25 Gm/50 Ml Syringe IV PUSH 25 gm PRN PRN Administration Hypoglycemia Protocol Enoxaparin Sodium 40 mg 07/18/22 10:40 07/29/22 09:22 Enoxaparin 40 Mg/0.4 Ml Syringe SUB-Q 40 mg DAILY NAHEED Administration Fentanyl Citrate 25 mcg 07/23/22 19:48 Fentanyl Citrate Inj (*Crx) 100 Mcg/2 Ml Vial IV PUSH Q2M PRN Pain Glipizide 5 mg 07/20/22 09:00 07/29/22 09:22 Glipizide 5 Mg Tablet PO 5 mg DAILY NAHEED Administration Glucagon 1 mg 07/16/22 03:47 Glucagon For Inj 1 Mg Vial IM PRN PRN Hypoglycemia Protocol Glucose 15 gm 07/16/22 03:47 07/28/22 17:28 Glucose Oral Gel 15 Gm Of Glucse In 37.5 Gm Tube PO 15 gm PRN PRN Administration Hypoglycemia Protocol Dextrose 1,000 mls @ 100 mls/hr 07/16/22 03:47 Dextrose 5% 1,000 Ml IVPB PRN PRN Hypoglycemia Protocol Metronidazole 500 mg in 100 mls @ 100 mls/hr 07/24/22 08:00 07/30/22 04:41 Flagyl 500 Mg/Iso Soln 100 Ml IVPB 100 mls/hr Q6HR NAHEED Administration Micafungin Sodium 100 mg/ 100 mls @ 100 mls/hr 07/24/22 14:00 07/29/22 09:22 Sodium Chloride IVPB 100 mls/hr DAILY NAHEED Administration Insulin Aspart 3 - 6 units 07/16/22 08:00 07/30/22 07:46 Insulin Aspart (*Bkc) 100 Units/Ml SUB-Q Not Given TIDWM NAHEED Protocol Insulin Glargine 22 units 07/24/22 09:00 07/29/22 09:22 Insulin Glargine (*Bkc) 100 Units/Ml SUB-Q 22 units DAILY NAHEED Adm
--- NOTE | 2022-07-30 08:21 | IDPHARM ---
Update: 07/23 culture is showing C. albicans Patient is improving and discussions toward a discharge soon is approaching. Spoke to consulting service- switching to PO and keep antibacterial duration for 28 days from initial lactobacillus finding and micafungin to fluconazole for duration from 07/23. fluconazole 200 mg (within 3-6 mg/kg) Thank you for the interesting consult. Richar Powers, PharmD Infectious Disease/Antimicrobial Stewardship Pharmacist 07/30/22; 0821 Lindsey Campbell [facility] 1975 [id number] 07/24/22 13:02 - ID Pharmacy Note by Richar Powers PharmD Acct Num: [id number] : 1975 Patient Age: 47 Subjective Pharmacy was consulted by Kelsie Andrade regarding infectious diseases for Lindsey Cohen. Lindsey Cohen is a 47 year old M with concerns regarding prostatic abscess. Background The patient is currently receiving Metronidazole IV, Levofloxacin, Fluconazole. The patient's PMH includes diabetes, and anemia, and presented with abdominal pain, dysuria, and pain. Recent Diabetes diagnosis requiring injectable therapy. Additionally, the patient was able to transition out of the ICU soon after arriving and underwent swabbing of discharge on 07/16 (lactobacillus spp.) and cystoscopy for abscess drainage (yeast spp.) on 07/17 and repeat on 07/23 (culture pending). Pt WBC was improving from ~18 to ~13, but has recently reached 21-23. Continue to follow. Assessment/Recommendation/Discussion Patient not improving/slowly improving per discussion with consulting provider and that this is a very severe abscess. Patient not improving despite drainage of abscess, perhaps improvement will begin with the interventions done on 07/23 and the CBI. Continue to follow. As fluconazole's yeast coverage is limited, even in the Carole genus, and the yeast spp. was the one isolated from the cystoscopy, switch fluconazole to micafungin. Follow for improvement. Can consider switching levofloxacin to some beta-lactam like ampicillin for additional lactobacillus coverage which can present with various resistances including, fluoroquinolones, beta-lactams, and especially vancomycin. Will follow up, but do not hesitate to reach out sooner if needed. Thank you for the interesting consult. Richar Powers, PharmD Infectious Disease/Antimicrobial Stewardship Pharmacist 07/24/22; 1302 Initialized on 07/24/22 13:02 - END OF NOTE
[2022-07-30] MEDS: glipiZIDE 5 MG TABLET PO (09:05)
[2022-07-30] MEDS: metFORMIN HCL 500 MG TABLET 1000 MG PO (09:05)
[2022-07-30] MEDS: INSULIN GLARGINE (*BKC) 100 UNITS/ML 22 UNITS SUB-Q (09:06)
[2022-07-30] MEDS: MICAFUNGIN SODIUM 100 MG in SODIUM CHLORIDE 0.9% IV 100 ML IVPB (09:06)
[2022-07-30] MEDS: ENOXAPARIN 40 MG/0.4 ML SYRINGE SUB-Q (09:07)
[2022-07-30] MEDS: HYDROcodone/acetaminophen (*CRX) 5-325 MG TABLET 1 TAB PO ×2 (09:09→15:04)
[2022-07-30 12:15] LABS: Glucose Point of Care 203 mg/dl (65-105)
[2022-07-30] MEDS: FLUCONAZOLE 100 MG TABLET 200 MG PO (13:11)
[2022-07-30] MEDS: INSULIN ASPART (*BKC) 100 UNITS/ML SUB-Q (13:11)
[2022-07-30] MEDS: metroNIDAZOLE 250 MG TABLET 500 MG PO ×2 (13:11→20:59)
[2022-07-30 14:00] VITALS: BP 136/82; PULSE 73; RESP 16; TEMP 36.5; O2SAT 100
[2022-07-30 16:56] LABS: Glucose Point of Care 178 mg/dl (65-105)
--- NOTE | 2022-07-30 18:17 | PM.IMPN ---
Progress Note: A&P Assessment and Plan (1) Prostatic abscess: Code(s): N41.2 - Abscess of prostate Status: Acute (2) Anemia: Qualifiers: Anemia type: unspecified type Qualified Code(s): D64.9 - Anemia, unspecified Code(s): D64.9 - Anemia, unspecified Status: Acute (3) Severe sepsis: Code(s): A41.9 - Sepsis, unspecified organism; R65.20 - Severe sepsis without septic shock Status: Acute (4) Hyponatremia: Code(s): E87.1 - Hypo-osmolality and hyponatremia Status: Acute Plan # prostate abscess status post drainage on 07/16/2022. Culture growing lactobacillus bases treated with levofloxacin. Another culture collected on 07/17 growing yeast. Started on Diflucan. 07/23 further I and D and placement of suprapubic catheter. WBC count normalized today. Flagyl was added on 07/23/2022. Diflucan switched to micafungin for Carole albicans, patient clinicall symptoms have improved he is stable, will discuss with ID pharmacy regarding IV abx and duration of abx, patient will be seen his urologist and further recommendation to follow. HIV hepatitis B and tuberculosis test are negative Treponema pallidum test negative On Levaquin till 08/14/2022 # sepsis secondary to abscess -no history of prostate abscess, no history of urine infections, no trauma to prostate -antibiotics: Continue Levaquin -urology consulted Dr. Guzman Suprapubic catheter placement for your retention of urine impressions of urethral diverticulum cystogram with extravasation of contrast from the urethra at the bulbar urethra. Suprapubic catheter placed # anemia -unclear etiology of anemia, ordered labs for workup for take count, ferritin, iron panel, haptoglobin, TSH, transferrin, B12, folic acid, bilirubin -type and screen complete, will transfuse if hemoglobin less than 7 -no signs of bleeding Transfuse 2 unit of PRBC on 07/19/2022 Also received IV Venofer # hyponatremia Improved # hypotension -central line placed right IJ, critical care consulted -keep map greater than 65, as needed levophed -patient's blood pressure may be chronically low, patient reports no history of hypotension -IV fluids continue LR at 125 cc/hour, patient given 3 L fluid bolus in the ED with no improvement of BP On midodrine currently # poorly-controlled type 2 diabetes -patient will need diabetic Education -patient is emaciated from poorly controlled diabetes -hemoglobin A1c greater than 14 -home regimen is metformin, glipizide, 4 units Lantus nightly -current Lantus 22 units metformin 1000 daily along with glipizide 5 mg daily blood sugar reviewed. hypo this am on blood lab. accucheck otherwise elevated Diet: Diabetic diet DVT prophylaxis: Lovenox Code status: Full code Subjective Date/time seen: 07/30/22 18:17 Interval history: no overngiht events reported. doig well. pain in the genital reported which is about the same. Review of Systems Review of Systems: All systems reviewed & are unremarkable except as noted in HPI and below Exam Narrative: appears chronically ill and cachectic Patient is comfortable, NAD HEENT: eyes are clear and none icteric LUNGS: normal respiratory effort ABD: not distended dressing in place with suprapubic catheter which is draining clear urine Lower extremities: no edema cyanosis or clubbing SKIN: nonjaundiced Neuro: grossly intact. Alert and oriented x3 Objective Data Vital Signs Vital Signs: Vital Signs - 24 hr 07/29/22 22:00 07/29/22 20:00 07/30/22 06:00 Temperature 97.8 F 97.4 F L Pulse Rate 88 79 Respiratory Rate 16 16 Blood Pressure 104/78 119/85 Pulse Oximetry 100 100 Oxygen Delivery Room Air 07/30/22 08:00 07/30/22 14:00 Temperature 97.7 F Pulse Rate 73 Respiratory Rate 16 Blood Pressure 136/82 Pulse Oximetry 100 Oxygen Delivery Room Air Intake/Output Intake/Output: Intake & Output 07/27/22 07/28/22 07/29/22 07/30/22
[2022-07-30] MEDS: levoFLOXacin 500 MG TABLET PO (21:00)
[2022-07-30 21:08] LABS: Glucose Point of Care 311 mg/dl (65-105)
[2022-07-30 22:00] VITALS: BP 117/78; PULSE 76; RESP 16; TEMP 36.2; O2SAT 99
[2022-07-31] MEDS: MIDODRINE HCL 10 MG TABLET PO ×2 (04:53→14:14)
[2022-07-31] MEDS: metroNIDAZOLE 250 MG TABLET 500 MG PO ×2 (04:53→14:14)
[2022-07-31] MEDS: CENTRAL LINE FLUSH 10 ML IV PUSH ×2 (04:53→14:15)
[2022-07-31 05:20] LABS: Hematocrit 33.5 % (42.0-52.0); Hemoglobin 10.7 g/dL (14.0-18.0); Mean Corpuscular HGB Conc 31.9 g/dl (32-36); Mean Corpuscular Hemoglobin 30.1 pg (26-34); Mean Corpuscular Volume 94.4 fl (80-100); Platelet Count Result 940 k/mm3 (150-375); Red Blood Count 3.55 M/mm3 (4.6-6.20); Red Cell Distribution Width 14.3 % (11.5-14.5); White Blood Count 11.2 K/mm3 (4.5-10.0)
[2022-07-31 05:27] LABS: Anion Gap 2 mmol/L (8-16); Blood Urea Nitrogen 20 mg/dL (9-20); Calcium 8.4 mg/dL (8.4-10.2); Carbon Dioxide 32 mmol/L (22-30); Chloride 97 mmol/L (98-107); Estimated CRCL calculation 68 ml/min; Estimated Glomerular Filt Rate > 60; Glucose 230 mg/dL (65-110); Magnesium 1.7 mg/dL (1.6-2.3); Potassium 4.4 mmol/L (3.4-5.0); Sodium 131 mmol/L (137-145)
[2022-07-31 06:00] VITALS: BP 94/78; PULSE 94; RESP 16; TEMP 36.6; O2SAT 98
[2022-07-31 08:31] LABS: Glucose Point of Care 227 mg/dl (65-105)
[2022-07-31] MEDS: metFORMIN HCL 500 MG TABLET 1000 MG PO (09:26)
[2022-07-31] MEDS: HYDROcodone/acetaminophen (*CRX) 5-325 MG TABLET 1 TAB PO ×2 (09:26→16:49)
[2022-07-31] MEDS: FLUCONAZOLE 100 MG TABLET 200 MG PO (09:27)
[2022-07-31] MEDS: ENOXAPARIN 40 MG/0.4 ML SYRINGE SUB-Q (09:27)
[2022-07-31] MEDS: glipiZIDE 5 MG TABLET PO (09:27)
[2022-07-31] MEDS: INSULIN GLARGINE (*BKC) 100 UNITS/ML 22 UNITS SUB-Q (09:27)
[2022-07-31] MEDS: INSULIN ASPART (*BKC) 100 UNITS/ML SUB-Q ×2 (09:27→12:32)
--- NOTE | 2022-07-31 10:32 | PCNFU ---
Nutrition Follow-Up Complete: Food and Nutrition Knowledge Deficit as related to newly dx DM as evidenced by HbA1c > 14% Goal:Adequate Intake of at least 75% of meals on diabetic diet. - Goal is being met Pt current nutrition is DIabetic consistent carb diet with Glucerna ordered BID. Intakes 100%. Not drinking Glucerna. Nutrition recommendation: Agree with diet order. Continue same diet order, supplements Last recorded weight is 38.5 kg. +1.3 kg since admission Bowel Motility: +1 BM 07/30/22 Labs Reviewed:Hgb 10.7, Hct 33.5, Na 131, Glu 178-230 Meds Noted: Levaquin Skin: WNL Additional Notes: Labs and weight improving. Abscess drained. Has been seen by clinical unit educator. Continue same care plan and monitoring Will monitor every 7 days.
[2022-07-31 11:28] LABS: Glucose Point of Care 303 mg/dl (65-105)
--- NOTE | 2022-07-31 13:47 | PM.DS ---
DS: Admitting Diagnosis Discharge Date 07/31/2022 Admitting Diagnosis fever and dysuria DS: Discharge Diagnosis Discharge Diagnosis (1) Prostatic abscess: Code(s): N41.2 - Abscess of prostate Status: Acute (2) Anemia: Qualifiers: Anemia type: unspecified type Qualified Code(s): D64.9 - Anemia, unspecified Code(s): D64.9 - Anemia, unspecified Status: Acute (3) Severe sepsis: Code(s): A41.9 - Sepsis, unspecified organism; R65.20 - Severe sepsis without septic shock Status: Acute (4) Hyponatremia: Code(s): E87.1 - Hypo-osmolality and hyponatremia Status: Acute Plan # prostate abscess status post drainage on 07/16/2022. Culture growing lactobacillus bases treated with levofloxacin. Another culture collected on 07/17 growing yeast. Started on Diflucan. 07/23 further I and D and placement of suprapubic catheter. WBC count normalized today. Flagyl was added on 07/23/2022. Diflucan switched to micafungin for Carole albicans, patient clinicall symptoms have improved he is stable, will discuss with ID pharmacy regarding IV abx and duration of abx, patient will be seen his urologist and further recommendation to follow. HIV hepatitis B and tuberculosis test are negative Treponema pallidum test negative On Levaquin till 08/14/2022 # sepsis secondary to abscess -no history of prostate abscess, no history of urine infections, no trauma to prostate -antibiotics: Continue Levaquin -urology consulted Dr. Guzman Suprapubic catheter placement for your retention of urine impressions of urethral diverticulum cystogram with extravasation of contrast from the urethra at the bulbar urethra. Suprapubic catheter placed # anemia -unclear etiology of anemia, ordered labs for workup for take count, ferritin, iron panel, haptoglobin, TSH, transferrin, B12, folic acid, bilirubin -type and screen complete, will transfuse if hemoglobin less than 7 -no signs of bleeding Transfuse 2 unit of PRBC on 07/19/2022 Also received IV Venofer # hyponatremia Improved # hypotension -central line placed right IJ, critical care consulted -keep map greater than 65, as needed levophed -patient's blood pressure may be chronically low, patient reports no history of hypotension -IV fluids continue LR at 125 cc/hour, patient given 3 L fluid bolus in the ED with no improvement of BP On midodrine currently # poorly-controlled type 2 diabetes -patient will need diabetic Education -patient is emaciated from poorly controlled diabetes -hemoglobin A1c greater than 14 -home regimen is metformin, glipizide, 4 units Lantus nightly -current Lantus 22 units metformin 1000 daily along with glipizide 5 mg daily blood sugar reviewed. hypo this am on blood lab. accucheck otherwise elevated Diet: Diabetic diet DVT prophylaxis: Lovenox Code status: Full code DS: Summary Hospital Course Reason for hospitalization: Fevers, dysuria Narrative: Patient is a 47-year-old male with past medical history of type 2 diabetes who presents the ED with complaints of weakness, abdominal pain, dysuria.? Patient is Romanian-speaking only and I used organic extractions technician service to speak with patient.? Patient's daughter also bedside.? Patient recently was diagnosed with diabetes type 2 in June 2022 was started on metformin, glipizide, insulin 4 units Lantus at bedtime.? He was seen in a hospital in [place] where he was living with his and at that time he was told he was anemic as well.? He then went home and his was concerned and to continue to deteriorate at home.? Patient's daughter who lives locally went to [place] to bring him here. In the ED:? Patient's blood pressure is low map 61-68 despite 3 L of IV fluid boluses.? Patient is anemic hemoglobin 8.4, on ABG was 7.3.? He has been typed and screened.? With patient's blood pressure being low, central line was placed for possible vasopressors.? Sodium low 123, cr
[2022-07-31 14:00] VITALS: BP 88/60; PULSE 93; RESP 16; TEMP 36.1; O2SAT 100
--- NOTE | 2022-07-31 16:24 | WPDUROPN2 ---
Progress Note: A&P Assessment and Plan (1) Urethral diverticulum: Code(s): N36.1 - Urethral diverticulum Status: Acute Assessment and Plan: Repeat cultures pending at this time. Will continue with Diflucan , flagyl and Levaquin as outpatient. Can be discharged home. Will plan on follow-up in approximately 3 weeks for flexible cystoscopy and and suprapubic tube exchange. Will need to be evaluated by a reconstructive urologist Subjective Subjective Date/Time Seen: 07/31/22 16:24 Principal diagnosis: Periurethral diverticulum with abscess Interval history: Patient is feeling better but still has occasional suprapubic and perineal discomfort Review of Systems Review of Systems: All systems reviewed & are unremarkable except as noted in HPI and below Exam Const: General: cooperative and comfortable Objective Data Vital Signs Vital Signs: Vital Signs - 24 hr 07/30/22 22:00 07/31/22 06:00 07/31/22 08:00 Temperature 36.2 C L 36.6 C Pulse Rate 76 94 Respiratory Rate 16 16 Blood Pressure 117/78 94/78 L Pulse Oximetry 99 98 Oxygen Delivery Room Air 07/31/22 14:00 Temperature 36.1 C L Pulse Rate 93 Respiratory Rate 16 Blood Pressure 88/60 L Pulse Oximetry 100 Oxygen Delivery Intake/Output Intake/Output: Intake & Output 07/28/22 07/29/22 07/30/22 07/31/22 23:59 23:59 23:59 23:59 Intake Total 2550 1970 1450 830 Output Total 3250 3575 2425 2200 Zljehqm -944 -1605 -975 -1370 Meds/Results Medications: Active Medications Generic Name Dose Route Start Last Admin Trade Name Freq PRN Reason Stop Dose Admin Acetaminophen 650 mg 07/16/22 04:02 07/22/22 22:48 Acetaminophen 325 Mg Tablet PO 650 mg Q4H PRN Administration Mild Pain (1-3) or Fever Hydrocodone Bitart/Acetaminophen 1 tab 07/16/22 04:02 07/31/22 09:26 Hydrocodone/Acetaminophen (*Crx) 5-325 Mg Tablet PO 1 tab Q4H PRN Administration Moderate Pain (4-6) Al Hydrox/Mg Hydrox/Simethicone 30 ml 07/16/22 04:02 07/21/22 06:26 Mag Hydrox/Al Hydrox/Simeth 30 Ml Udc PO 30 ml QID PRN Administration Dyspepsia Bisacodyl 5 mg 07/16/22 04:02 Bisacodyl 5 Mg Tablet Ec PO DAILY PRN Constipation Dextrose 25 gm 07/30/22 05:45 07/30/22 06:40 Dextrose 50% 25 Gm/50 Ml Syringe IV PUSH 25 gm PRN PRN Administration Hypoglycemia Protocol Enoxaparin Sodium 40 mg 07/18/22 10:40 07/31/22 09:27 Enoxaparin 40 Mg/0.4 Ml Syringe SUB-Q 40 mg DAILY NAHEED Administration Fentanyl Citrate 25 mcg 07/23/22 19:48 Fentanyl Citrate Inj (*Crx) 100 Mcg/2 Ml Vial IV PUSH Q2M PRN Pain Fluconazole 200 mg 07/30/22 10:00 07/31/22 09:27 Fluconazole 100 Mg Tablet PO 08/19/22 23:59 200 mg QAM NAHEED Administration Glipizide 5 mg 07/20/22 09:00 07/31/22 09:27 Glipizide 5 Mg Tablet PO 5 mg DAILY NAHEED Administration Glucagon 1 mg 07/16/22 03:47 Glucagon For Inj 1 Mg Vial IM PRN PRN Hypoglycemia Protocol Glucose 15 gm 07/16/22 03:47 07/28/22 17:28 Glucose Oral Gel 15 Gm Of Glucse In 37.5 Gm Tube PO 15 gm PRN PRN Administration Hypoglycemia Protocol Dextrose 1,000 mls @ 100 mls/hr 07/16/22 03:47 Dextrose 5% 1,000 Ml IVPB PRN PRN Hypoglycemia Protocol Insulin Aspart 3 - 6 units 07/16/22 08:00 07/31/22 12:32 Insulin Aspart (*Bkc) 100 Units/Ml SUB-Q 5 units TIDWM NAHEED Administration Protocol Insulin Glargine 22 units 07/24/22 09:00 07/31/22 09:27 Insulin Glargine (*Bkc) 100 Units/Ml SUB-Q 22 units DAILY NAHEED Administration Levofloxacin 500 mg 07/22/22 21:00 07/30/22 21:00 Levofloxacin 500 Mg Tablet PO 08/14/22 23:55 500 mg DAILY@2100 NAHEED Administration Magnesium Hydroxide 30 ml 07/16/22 04:02 Magnesium Hydroxide Susp 30 Ml Udc PO DAILY PRN Constipation Metformin HCl 1,000 mg 07/20/22 09:00 07/31/22 09:26 [facility]
[2022-07-31 16:30] LABS: Glucose Point of Care 90 mg/dl (65-105)
[2022-07-31 17:37] LABS: Glucose Point of Care 84 mg/dl (65-105)
--- NOTE | 2022-07-31 18:50 | PC.NURSE ---
Extensive education given to patient and family. Pt is primarily syrian speaking so translation was necessary. Education and return demonstration for blood sugar checks done. Diabetic education including providing syrian diabetic handbook given to patient. Pt educated on the importance of reducing sugars, increasing protein and checking sugars regularly before meals and before bed time. Instructed patient and family on how to change out catheter to leg bag and back again. Fresh catheter bags provided. Family and pt also instructed on how to care for and do dressings to the suprapubic michael. All verbalized understanding. Recommend that they see certified diabetes educator and refinery superintendent for maximum results.
== END 2022-07-31 18:55 | disposition home or self-care (01) | DRG 720 ==
LOC: ANHED 07-16 03:16 → ANHIMU 07-16 04:49 → ANHICU 07-16 06:13 → ANH3MEDSUR 07-22 11:58 → ANHICU 08-01 09:36
PROVIDERS: Internal Medicine; Physician Assistant; Urology; Admitting Provider Student in an Organized Health Care Education/Training Program; Emergency Provider Emergency Medicine; Visit Provider Family Medicine
PROC: 0TJB8ZZ Inspection of Bladder, Via Natural or Artificial Opening Endoscopic (ICD-10-PCS; CPT 52000; 2022-07-17 15:30)
PROC: 0T9B30Z Drainage of Bladder with Drainage Device, Percutaneous Approach (ICD-10-PCS; CPT 51102; principal; 2022-07-23 14:00)
DX: A41.9 Sepsis, unspecified organism (principal); R64 Cachexia; N17.9 Acute kidney failure, unspecified; E11.65 Type 2 diabetes mellitus with hyperglycemia; E87.1 Hypo-osmolality and hyponatremia; N41.2 Abscess of prostate; D64.9 Anemia, unspecified; N36.1 Urethral diverticulum; Z68.1 Body mass index [BMI] 19.9 or less, adult; Z60.3 Acculturation difficulty; Z20.822 Contact with and (suspected) exposure to COVID-19; Z79.4 Long term (current) use of insulin; Z79.84 Long term (current) use of oral hypoglycemic drugs; R65.20 Severe sepsis without septic shock
CPT/HCPCS: 10160; 36415; 36430; 36556; 36600; 51600; 51610; 51702; 74176; 74177; 74430; 74450; 76942; 80048; 80053; 80074; 81001; 82010; 82248; 82274; 82375; 82570; 82607; 82728; 82746; 82805; 82948; 83010; 83036; 83050; 83540; 83550; 83605; 83615; 83690; 83735; 83930; 83935; 84100; 84155; 84165; 84300; 84443; 84466; 85025; 85027; 85046; 85610; 85652; 85730; 86140; 86480; 86703; 86850; 86900; 86901; 86923; 87040; 87045; 87070; 87075; 87086; 87088; 87106; 87177; 87205; 87209; 87269; 87272; 87427; 87493; 87636; 88305; 88342; 89055; 93005; 96361; 96365; 96366; 96367; 96375; 97116; 97161; 97165; 97530; 97535; 99285; A9270; C1751; C1758; C1769; C2627; G0378; G0432; J0131; J0330; J0612; J0690; J0696; J1450; J1580; J1650; J1756; J1815; J1940; J1956; J2248; J2250; J2270; J2370; J2405; J2704; J3010; J3475; J3480; J7030; J7050; J7120; P9016; Q9966; Q9967